=== PATIENT | female | born 1975 | race Caucasian/White ===

== ENCOUNTER 2018-02-14 09:30 | Emergency (ER) | payer OTHER ==
[2018-02-14] MEDS: NS 1,000 ML IV (10:56)
[2018-02-14 11:04] LABS: HEMATOCRIT 43.3 % (36.0-47.0); HEMOGLOBIN 14.6 g/dl (12.0-15.5); MEAN CORPUSCULAR HEMOGLOBIN 29.3 pg (27.0-33.0); MEAN CORPUSCULAR HGB CONC 33.7 g/dl (32.0-36.5); MEAN CORPUSCULAR VOLUME 86.8 fl (80.0-96.0); PLATELET COUNT, AUTOMATED 338 10^3/uL (150-450); RED BLOOD COUNT 4.99 10^6/uL (4.00-5.40); RED CELL DISTRIBUTION WIDTH 12.6 % (11.5-14.5); WHITE BLOOD COUNT 11.7 10^3/uL (4.0-10.0)
[2018-02-14 11:05] LABS: ADD MANUAL DIFFER YES; DIFF SLIDE NUMBER 179; POSITIVE DIFF POS FLAG; POSITIVE MORPH POS FLAG
[2018-02-14 11:14] LABS: INR 0.94; PROTHROMBIN TIME 12.7 SECONDS (12.1-14.4)
[2018-02-14 11:15] LABS: PARTIAL THROMBOPLASTIN TIME 22.4 SECONDS (25.4-37.6)
[2018-02-14 11:32] LABS: ANION GAP 4 MEQ/L (8-16); BLOOD UREA NITROGEN 5 MG/DL (7-18); CALCIUM LEVEL 8.6 MG/DL (8.5-10.1); CARBON DIOXIDE LEVEL 29 MEQ/L (21-32); CHLORIDE LEVEL 103 MEQ/L (98-107); CREATININE FOR GFR 0.66 MG/DL (0.55-1.30); GLOMERULAR FILTRATION RATE > 60.0 (>58); GLUCOSE, FASTING 268 MG/DL (70-100); POTASSIUM SERUM 3.9 MEQ/L (3.5-5.1); SODIUM LEVEL 136 MEQ/L (136-145)
[2018-02-14 11:33] LABS: EOSINOPHILS 1 % (0-5); LYMPHOCYTES 39 % (16-52); MONOCYTES 3 % (0-8); NEUTROPHILS 57 % (35-75); PLATELET ESTIMATE NORMAL (NORMAL)
[2018-02-14 12:35] LABS: KETONE, URINE AUTO RFX NEGATIVE (NEGATIVE); LEUKOCYTE ESTERASE UR AUTO RFX NEGATIVE (NEGATIVE); MUCUS, URINE RFX SMALL (NEGATIVE); NITRITE, URINE AUTO RFX NEGATIVE (NEGATIVE); RBC, URINE AUTO RFX 3 /HPF (0-3); SPECIFIC GRAVITY UR AUTO RFX 1.021 (1.002-1.035); SQUAM EPITHELIAL CELL UR AURFX 1 /HPF (0-6); WBC, URINE AUTO RFX 1 /HPF (0-3)
== END 2018-02-14 13:07 | disposition home or self-care (01) ==
LOC: M ED 09:30
DX: R10.2 Pelvic and perineal pain (principal); N95.0 Postmenopausal bleeding; I10 Essential (primary) hypertension; G62.9 Polyneuropathy, unspecified; M06.9 Rheumatoid arthritis, unspecified; K21.9 Gastro-esophageal reflux disease without esophagitis; Z79.899 Other long term (current) drug therapy; Z88.8 Allergy status to other drugs, medicaments and biological substances; F17.210 Nicotine dependence, cigarettes, uncomplicated
CPT/HCPCS: 76856

== ENCOUNTER → 2019-12-24 | Outpatient (REF) | payer OTHER ==
[~2019-12-24] MED LIST: BUPR150T5 PO; CELE40TA PO; CITA20TA6; HYDR-3715 PO; LISI-538 PO; LISI10TA4; OMEP40CA97
== END ==
LOC: M LAB REF 18:13
PROVIDERS: ATTEND Physician Assistant
DX: D23.5 Other benign neoplasm of skin of trunk (principal)

== ENCOUNTER 2021-01-07 17:04 | Emergency (ER) | payer OTHER ==
[~2021-01-07 17:04] MED LIST changes: -LISI-538 PO; +LISI10TA22; -LISI10TA4; +LISI20TA33 PO; +OMEP40CA4; -OMEP40CA97
--- OUTSIDE RECORDS SUMMARY | 2021-01-07 17:08 | CCD ---
Author Author [facility] Organization [facility] Address Unknown Phone Unavailable Care Team Providers Care Parks Worker Name Role Phone Patricia Nunes Unavailable PROBLEMS Type Condition ICD9-CM Code JKO30-EE Code Onset Dates Condition S tatus W/U Status Risk SNOMED Code Notes Problem Irregular menstrual bleeding N92.6 Active confirme d 54738082 Problem PTSD (post-traumatic stress disorder) F43.10 Ac tive confirmed 10408454 Problem Hypertensive heart disease without heart failure I 11.9 Active confirmed 85761583 Problem Type 2 diabetes mellitus wit hout complication, without long-term current use of insulin E11.9 Active confirmed 321139930 Problem GERD without esophagitis K21.9 Active confirmed 727200988 Problem Peripheral polyneuropathy G62.9 Active confirmed 969352511 Problem Nicotine dependence, cigarettes, uncomplicated F17 .210 Active confirmed 88123018 Problem Mixed hyperlipidemia E78.2 Active confirmed 353221575 Problem Rheumatoid arthritis, involv ing unspecified site, unspecified whether rheumatoid factor present M06.9 Active confirmed 6989 6004 Problem Anxiety with depression F41.8 Active confirmed 611604764 ALLERGIES Allergen (clinical drug ingredient) Drug/Non Drug Allergy do cumented on EMR Reaction Allergy Type Onset Date Status aspirin Aspirin([facility] Code:[address]-29) Hives Drug Allergy Active ENCOUNTERS from 1975 to 2020-10-20 Encounter Location Date Provider Diagnosis [address] [phone] [place] [address] Sep, Patricia Des IMMUNIZATIONS No Information SOCIAL HISTORY Tobacco Use: Social History Observation Description Date Details (start date - stop date) Current Smoker Sex Assigned At : Social History Observation Description Sex Assigned At Unknown Education: Question Answer Notes Level of Education: Not finished High School Audit Question Answer Notes Total Score: 0 Interpretation: Alcohol Education Language: Question Answer Notes Languages spoken: Danish Worship: Question Answer Notes Worship 08 Religious Domestic Violence: Question Answer Notes Status: Sexual Hx: Question Answer Notes Had sex in the last 12 months (vaginal, oral, or anal)? No Drug and Alcohol Question Answer Notes Total Score: 0 Interpretation: No problems reported Alcohol Screening: Question Answer Notes Did you have a drink containing alcohol in the past year? No Points 0 Interpretation Negative Tobacco Use: Question Answer Notes Are you a: current smoker Additional Findings: Tobacco User Heavy cigarette smoker (20 -39 cigs/day) Smoking Cessation Information Given 08/26/2020 Patient counseled on the dangers of tobacco use and urged to quit: 08/26/2020 How many cigarettes a day do you smoke? 21-30 Are you interested in quitting? Not ready to quit Counseled the patient on smoking effects, education provided 08/26/2020 REASON FOR REFERRAL No Information VITAL SIGNS No information MEDICATIONS Medication SIG (Take, Route, Frequency, Duration) Notes Start Da te End Date Status Gabapentin 300 MG 1 capsule Orally twice daily for 30 day(s) Sep, Active Omeprazole 40 MG 1 capsule 30 minutes before morning meal Orally Once a day for 90 days Feb, Active Paxil 20 MG 1 tablet in the morning Orally Once a day for 30 day(s) Feb, Not-Taking Clindamycin HCl 300 MG 1 cap Orally four times daily for 4 days Aug, Active CeleXA 20 MG 1 tablet Orally Once a day for 30 day(s) 2020 Active metFORMIN HCl 500 MG 1 tablet with a meal Orally twice daily for 30 day(s) Feb, Active Lisinopril 10 MG 1 tablet Orally Once a day for 90 days Feb, Active PROCEDURES No Information RESULTS No Results REASON FOR VISIT no show MEDICAL (GENERAL) HISTORY Type Description Date Medical History Spinal Stenosis in neck and low back Medical History Degenerative Disc Disease Medical History Degenerative muscle disease Medical History Type 2 diabetes Medical History GERD Medical History HTN Medical History Rheumatoid arthritis- 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 has 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 Medical History Depression Medical History Anxiety Medical History PTSD Surgical History C section 2010 Surgical History endometrial ablation 2011 Hospitalization History had an abscess on her stomach 08/2020 Goals Section No Information Health Concerns No Information MEDICAL EQUIPMENT No Information MENTAL STATUS No Information FUNCTIONAL STATUS No Information ASSESSMENTS No Information PLAN OF TREATMENT Medication Medication Name Sig Start Date Stop Date Gabapentin 300 MG 1 capsule Orally twice daily for 30 day(s) Sep, CeleXA 20 MG 1 tablet Orally Once a day for 30 day(s) Sep, Clindamycin HCl 300 MG 1 cap Orally four times daily for 4 days Aug, Next Appt Details Provider Name:Patricia Nunes, 2020-10-24 08 :45:00 AM, [address] [facility], , [place], [address], Insurance Providers Payer Name Payer Address Payer Phone Insured Name Patient Relati onship to Insured Coverage Start Date Coverage End Date [facility] [employer] [facility] [address] [facility] [id number] [place] self
--- OUTSIDE RECORDS SUMMARY | 2021-01-07 17:09 | CCD ---
Author Author [facility] Organization [facility] Address Unknown Phone Unavailable Care Team Providers Care Film Coater Name Role Phone NO, PCP Unavailable Unavailable [facility] [place] Unavailable Unavailable TURRIN, IFRAH Unavailable Unavailable TURRIN, IFRAH Unavailable Unavailable TURRIN, IFRAH Unavailable Unavailable TURRIN, IFRAH Unavailable Unavailable AURORACristiano PA Unavailable Unavailable AURORACristiano PA Unavailable Unavailable AURORACristiano PA Unavailable Unavailable AURORACristiano PA Unavailable Unavailable AURORACristiano PA Unavailable Unavailable AURORACristiano PA Unavailable Unavailable AURORA, L ALEC PA Unavailable Unavailable AURORA, Cristiano MCFARLANE PA Unavailable Unavailable AURORA, L ALEC PA Unavailable Unavailable AURORA, L ALEC PA Unavailable Unavailable AURORA, L ALEC PA Unavailable Unavailable AURORA, L ALEC PA Unavailable Unavailable AURORA, L ALEC PA Unavailable Unavailable AURORA, L ALEC PA Unavailable Unavailable AURORA, L ALEC PA Unavailable Unavailable AURORA, L ALEC PA Unavailable Unavailable AURORA, L ALEC PA Unavailable Unavailable AURORA, L ALEC PA Unavailable Unavailable AURORA, L ALEC PA Unavailable Unavailable AURORA, L ALEC PA Unavailable Unavailable AURORA, L ALEC PA Unavailable Unavailable AURORA, L ALEC PA Unavailable Unavailable AURORA, L ALEC PA Unavailable Unavailable AURORA, L ALEC PA Unavailable Unavailable AURORA, L ALEC PA Unavailable Unavailable AURORA, L ALEC PA Unavailable Unavailable AURORA, L ALEC PA Unavailable Unavailable AURORA, L ALEC PA Unavailable Unavailable AURORA, L ALEC PA Unavailable Unavailable AURORA, L ALEC PA Unavailable Unavailable AURORA, L ALEC PA Unavailable Unavailable AURORA, L ALEC PA Unavailable Unavailable AURORA, L ALEC PA Unavailable Unavailable AURORA, L ALEC PA Unavailable Unavailable AURORA, L ALEC PA Unavailable Unavailable AURORA, L ALEC PA Unavailable Unavailable AURORA, L ALEC PA Unavailable Unavailable AURORA, L ALEC PA Unavailable Unavailable AURORA, L ALEC PA Unavailable Unavailable AURORA, L ALEC PA Unavailable Unavailable AURORA, L ALEC PA Unavailable Unavailable AURORA, L ALEC PA Unavailable Unavailable AURORA, L ALEC PA Unavailable Unavailable AURORA, L ALEC PA Unavailable Unavailable CHANLIECCO, C BARB MD Unavailable Unavailable CHANLIECCO, C BARB MD Unavailable Unavailable CHANLIECCO, Nicolas CURRY MD Unavailable Unavailable CHANLIECCO, C BARB MD Unavailable Unavailable CHANLIECCO, C BARB MD Unavailable Unavailable CHANLIECCO, C BARB MD Unavailable Unavailable CHANLIECCO, C BARB MD Unavailable Unavailable CHANLIECCO, C BARB MD Unavailable Unavailable CHANLIECCO, C BARB MD Unavailable Unavailable CHANLIECCO, C BARB MD Unavailable Unavailable CHANLIECCO, C BARB MD Unavailable Unavailable Re-disclosure Warning The records that you are about to access may contain information from federally-assisted alcohol or drug abuse programs. If such information is present, then the following federally mandated warning applies: This information has been disclosed to you from records protected by federal confidentiality rules (42 CFR part 2). The federal rules prohibit you from making any further disclosure of this information unless further disclosure is expressly permitted by the written consent of the person to whom it pertains or as otherwise permitted by 42 CFR part 2. A general authorization for the release of medical or other information is NOT sufficient for this purpose. The Federal rules restrict any use of the information to criminally investigate or prosecute any alcohol or drug abuse patient.The records that you are about to access may contain highly sensitive health information, the redisclosure of which is protected by Article 27-F of the [facility] Public Health law. If you continue you may have access to information: Regarding HIV / AIDS; Provided by facilities licensed or operated by the [facility] Office of Mental Health; or Provided by the [facility] Office for People With Developmental Disabilities. If such information is present, then the following [facility] mandated warning applies: This information has been disclosed to you from confidential records which are protected by state law. State law prohibits you from making any further disclosure of this information without the specific written consent of the person to whom it pertains, or as otherwise permitted by law. Any unauthorized further disclosure in violation of state law may result in a fine or [place] health [facility] facility sentence or both. A general authorization for the release of medical or other information is NOT sufficient authorization for further disc losure. Allergies and Adverse Reactions Type Description Substance Reaction Status Data Source(s ) No Known Environmental Allergies No Known Environmental Al lergies [facility] No Known Food Allergies No Known Food Allergies [facility] Drug allergy IBUPROFEN IBU[facility]OFEN [facility] Drug allergy ASPIRIN ASPIRIN HIVES [facility] Family History Family Member Name Family Member Gender Family Member Status Date o f Status Description Data Source(s) Unknown Male Problem MEDENT ([facility]) Unknown Unknown Problem [facility] ([facility]) Unknown Unknown Problem [facility] ([facility]) Unknown Unknown Problem [facility] ([facility]) Encounters Encounter Providers Location Date Indications Data Source(s ) [place] [address] [facility] [address] 09/22/2020 12:00:00 AM EDT [facility]CW[facility] Unknown [address] [facility] [address] 09/12/2020 12:00:00 AM EDT eCW1 ([facility]) [place] [address] [facility] [address] 08/29/2020 12:00:00 AM EDT eCW1 ([facility]) Outpatient [address] [facility] [place] [address] 08/26/2020 12:00:00 AM EDT [facility] ([facility]) [place] [address] [facility] [address] 08/22/2020 12:00:00 AM EDT [facility]CW1 [facility]) Outpatient Attender: [facility] 08/14/2020 12:5 0:00 PM EDT [facility] Emergency Attender: BARB FERRELL MDConsultant: PCP NO 08/14/2020 12:26:00 PM EDT - 08/14/2020 04:31:00 PM EDT [facility] Patient discharged. [place] [address] [facility] [address] 08/09/2020 12:00:00 AM EDT eCW1 [facility]) Outpatient Attender: [facility] 06/2020 03:20:00 PM EDT MEDENT [facility] Outpatient Attender: ALEC SIMON PAConsultant: PCP NO 08/05/2020 02:53:00 PM EDT - 08/05/2020 02:53:00 PM EDT [facility] [place] [address] [facility] [address] 08/05/2020 12:00:00 AM EDT eCW1 ([facility]) Emergency Attender: IFRAH HERNANDEZConsultant: PCP NO 07/13/2020 12:33:00 PM EDT - 07/13/2020 02:47:00 PM EDT [facility] Patient discharged. [place] [address] [facility] [address] 07/05/2020 12:00:00 AM EDT [facility]CW[facility] [place] [address] [facility] [address] 03/10/2020 12:00:00 AM EST eCW1 ([facility]) [place] [address] [facility] [address] 02/18/2020 12:00:00 AM EST eCW1 ([facility]) [place] [address] [facility] [address] 12/29/2019 12:00:00 AM EDT eCW1 ([facility]) [place] [address] [facility] [address] 12/24/2019 12:00:00 AM EDT eCW1 ([facility]) Medications Medication Brand Name Start Date Product Form Dose Route Admi nistrative Instructions Pharmacy Instructions Status Indications Reaction Description Data Source(s) Citalopram 20 MG Oral Tablet [Celexa] CeleXA 20 MG CeleXA 20 MG 09/13/2020 12:00:00 AM EDT 1.0 {tablet} active Ce Yoko 20 MG eCW1 ([facility]) Citalopram 20 MG Oral Tablet [Celexa] CeleXA 20 MG CeleXA 20 MG 09/13/2020 12:00:00 AM EDT 1.0 {tablet} active Ce Yoko 20 MG eCW1 ([facility]) Citalopram 20 MG Oral Tablet [Celexa] CeleXA 20 MG CeleXA 20 MG 09/13/2020 12:00:00 AM EDT 1.0 {tablet} active Ce Yoko 20 MG eCW1 ([facility]) gabapentin 300 MG Oral Capsule Gabapentin 300 MG Gabapentin 300 MG 09/13/2020 12:00:00 AM EDT 1.0 {capsule} active G abapentin 300 MG eCW1 ([facility]) gabapentin 300 MG Oral Capsule Gabapentin 300 MG Gabapentin 300 MG 09/13/2020 12:00:00 AM EDT 1.0 {capsule} active G abapentin 300 MG eCW1 ([facility]) gabapentin 300 MG Oral Capsule Gabapentin 300 MG Gabapentin 300 MG 09/13/2020 12:00:00 AM EDT 1.0 {capsule} active G abapentin 300 MG eCW1 ([facility]) Clindamycin 300 MG Oral Capsule Clindamycin HCl 300 MG Clind amycin HCl 300 MG 08/26/2020 12:00:00 AM EDT active Clindamycin HCl 300 MG eCW1 ([facility]) Clindamycin 300 MG Oral Capsule Clindamycin HCl 300 MG Clind amycin HCl 300 MG 08/26/2020 12:00:00 AM EDT active Clindamycin HCl 300 MG eCW1 ([facility]) Clindamycin 300 MG Oral Capsule Clindamycin HCl 300 MG Clind amycin HCl 300 MG 08/26/2020 12:00:00 AM EDT active Clindamycin HCl 300 MG eCW1 ([facility]) Clindamycin 300 MG Oral Capsule Clindamycin HCl 300 MG Clind amycin HCl 300 MG 08/26/2020 12:00:00 AM EDT active Clindamycin HCl 300 MG eCW1 ([facility]) Paroxetine 20 MG Oral Tablet [Paxil] Paxil 20 MG Paxil 20 MG 02/18/2020 12:00:00 AM EST 1.0 {tablet_in_the_morning} active Paxil 20 MG eCW1 ([facility]) Lisinopril 10 MG Oral Tablet Lisinopril 10 MG 02/18/2020 12:00:00 A M EST 1.0 {tablet} active Lisinopril 10 MG eCW1 ( [facility]) Paroxetine 20 MG Oral Tablet [Paxil] Paxil 20 MG Paxil 20 MG 02/18/2020 12:00:00 AM EST 1.0 {tablet_in_the_morning} active Paxil 20 MG eCW1 ([facility]) Metformin hydrochloride 500 MG Oral Tablet metFORMIN H Cl 500 MG metFORMIN HCl 500 MG 02/18/2020 12:00:00 AM EST 1.0 {tablet_with_a_meal} active metFORMIN HCl 500 MG eCW1 ([facility]) Lisinopril 10 MG Oral Tablet Lisinopril 10 MG 02/18/2020 12:00:00 A M EST 1.0 {tablet} active Lisinopril 10 MG eCW1 ( [facility]) Lisinopril 10 MG Oral Tablet Lisinopril 10 MG 02/18/2020 12:00:00 A M EST 1.0 {tablet} active Lisinopril 10 MG eCW1 ( [facility]) Paroxetine 20 MG Oral Tablet [Paxil] Paxil 20 MG Paxil 20 MG 02/18/2020 12:00:00 AM EST 1.0 {tablet_in_the_morning} suspended Paxil 20 MG eCW1 ([facility]) Omeprazole 40 MG Delayed Release Oral Capsule Omeprazole 40 MG 02/18/2020 12:00:00 AM EST active Omeprazo le 40 MG eCW1 ([facility]) Lisinopril 10 MG Oral Tablet Lisinopril 10 MG 02/18/2020 12:00:00 A M EST 1.0 {tablet} active Lisinopril 10 MG eCW1 ( [facility]) Omeprazole 40 MG Delayed Release Oral Capsule Omeprazole 40 MG 02/18/2020 12:00:00 AM EST active Omeprazo le 40 MG eCW1 ([facility]) Lisinopril 10 MG Oral Tablet Lisinopril 10 MG 02/18/2020 12:00:00 A M EST 1.0 {tablet} active Lisinopril 10 MG eCW1 ( [facility]) Lisinopril 10 MG Oral Tablet Lisinopril 10 MG 02/18/2020 12:00:00 A M EST 1.0 {tablet} active Lisinopril 10 MG eCW1 ( [facility]) Metformin hydrochloride 500 MG Oral Tablet metFORMIN H Cl 500 MG metFORMIN HCl 500 MG 02/18/2020 12:00:00 AM EST 1.0 {tablet_with_a_meal} active metFORMIN HCl 500 MG eCW1 ([facility]) Metformin hydrochloride 500 MG Oral Tablet metFORMIN H Cl 500 MG metFORMIN HCl 500 MG 02/18/2020 12:00:00 AM EST 1.0 {tablet_with_a_meal} active metFORMIN HCl 500 MG eCW1 ([facility]) Omeprazole 40 MG Delayed Release Oral Capsule Omeprazole 40 MG 02/18/2020 12:00:00 AM EST active Omeprazo le 40 MG eCW1 ([facility]) Paroxetine 20 MG Oral Tablet [Paxil] Paxil 20 MG Paxil 20 MG 02/18/2020 12:00:00 AM EST 1.0 {tablet_in_the_morning} active Paxil 20 MG eCW1 ([facility]) Metformin hydrochloride 500 MG Oral Tablet Metformin H Cl 500 MG Metformin HCl 500 MG 02/18/2020 12:00:00 AM EST 1.0 {tablet_with_a_meal} active Metformin HCl 500 MG eCW1 ([facility]) Paroxetine 20 MG Oral Tablet [Paxil] Paxil 20 MG Paxil 20 MG 02/18/2020 12:00:00 AM EST 1.0 {tablet_in_the_morning} active Paxil 20 MG eCW1 ([facility]) Paroxetine 20 MG Oral Tablet [Paxil] Paxil 20 MG Paxil 20 MG 02/18/2020 12:00:00 AM EST 1.0 {tablet_in_the_morning} suspended Paxil 20 MG eCW1 ([facility]) Metformin hydrochloride 500 MG Oral Tablet metFORMIN H Cl 500 MG metFORMIN HCl 500 MG 02/18/2020 12:00:00 AM EST 1.0 {tablet_with_a_meal} active metFORMIN HCl 500 MG eCW1 ([facility]) Omeprazole 40 MG Delayed Release Oral Capsule Omeprazole 40 MG 02/18/2020 12:00:00 AM EST active Omeprazo le 40 MG eCW1 ([facility]) Paroxetine 20 MG Oral Tablet [Paxil] Paxil 20 MG Paxil 20 MG 02/18/2020 12:00:00 AM EST 1.0 {tablet_in_the_morning} suspended Paxil 20 MG eCW1 ([facility]) Lisinopril 10 MG Oral Tablet Lisinopril 10 MG 02/18/2020 12:00:00 A M EST 1.0 {tablet} active Lisinopril 10 MG eCW1 ( [facility]) Paroxetine 20 MG Oral Tablet [Paxil] Paxil 20 MG Paxil 20 MG 02/18/2020 12:00:00 AM EST 1.0 {tablet_in_the_morning} suspended Paxil 20 MG eCW1 ([facility]) Lisinopril 10 MG Oral Tablet Lisinopril 10 MG 02/18/2020 12:00:00 A M EST 1.0 {tablet} active Lisinopril 10 MG eCW1 ( [facility]) Omeprazole 40 MG Delayed Release Oral Capsule Omeprazole 40 MG 02/18/2020 12:00:00 AM EST active Omeprazo le 40 MG eCW1 ([facility]) Lisinopril 10 MG Oral Tablet Lisinopril 10 MG 02/18/2020 12:00:00 A M EST 1.0 {tablet} active Lisinopril 10 MG eCW1 ( [facility]) Omeprazole 40 MG Delayed Release Oral Capsule Omeprazole 40 MG 02/18/2020 12:00:00 AM EST active Omeprazo le 40 MG eCW1 ([facility]) Paroxetine 20 MG Oral Tablet [Paxil] Paxil 20 MG Paxil 20 MG 02/18/2020 12:00:00 AM EST 1.0 {tablet_in_the_morning} active Paxil 20 MG eCW1 ([facility]) Metformin hydrochloride 500 MG Oral Tablet metFORMIN H Cl 500 MG metFORMIN HCl 500 MG 02/18/2020 12:00:00 AM EST 1.0 {tablet_with_a_meal} active metFORMIN HCl 500 MG eCW1 ([facility]) Omeprazole 40 MG Delayed Release Oral Capsule Omeprazole 40 MG 02/18/2020 12:00:00 AM EST active Omeprazo le 40 MG eCW1 ([facility]) Omeprazole 40 MG Delayed Release Oral Capsule Omeprazole 40 MG 02/18/2020 12:00:00 AM EST active Omeprazo le 40 MG eCW1 ([facility]) Metformin hydrochloride 500 MG Oral Tablet Metformin H Cl 500 MG Metformin HCl 500 MG 02/18/2020 12:00:00 AM EST 1.0 {tablet_with_a_meal} active Metformin HCl 500 MG eCW1 ([facility]) Metformin hydrochloride 500 MG Oral Tablet metFORMIN H Cl 500 MG metFORMIN HCl 500 MG 02/18/2020 12:00:00 AM EST 1.0 {tablet_with_a_meal} active metFORMIN HCl 500 MG eCW1 ([facility]) Omeprazole 40 MG Delayed Release Oral Capsule Omeprazole 40 MG 02/18/2020 12:00:00 AM EST active Omeprazo le 40 MG eCW1 ([facility]) Metformin hydrochloride 500 MG Oral Tablet Metformin H Cl 500 MG Metformin HCl 500 MG 02/18/2020 12:00:00 AM EST 1.0 {tablet_with_a_meal} active Metformin HCl 500 MG eCW1 ([facility]) Omeprazole 40 MG Delayed Release Oral Capsule Omeprazole 40 MG 02/18/2020 12:00:00 AM EST active Omeprazo le 40 MG eCW1 ([facility]) Lisinopril 10 MG Oral Tablet Lisinopril 10 MG 02/18/2020 12:00:00 A M EST 1.0 {tablet} active Lisinopril 10 MG eCW1 ( [facility]) Paroxetine 20 MG Oral Tablet [Paxil] Paxil 20 MG Paxil 20 MG 02/18/2020 12:00:00 AM EST 1.0 {tablet_in_the_morning} active Paxil 20 MG eCW1 ([facility]) Metformin hydrochloride 500 MG Oral Tablet Metformin H Cl 500 MG Metformin HCl 500 MG 02/18/2020 12:00:00 AM EST 1.0 {tablet_with_a_meal} active Metformin HCl 500 MG eCW1 ([facility]) Insurance Providers Payer name Policy type / Coverage type Policy ID Covered green party ID Covered green party's relationship to chin Policy Chin Plan Information Managed Care - Community Plan [facility] P [id number] S [id number] MEDICAID M [id number] Self [id number] [facility] I [id number] Self [id number] [facility] I [id number] Self [id number] Medicaid S [id number] S [id number] Managed Care - Community Plan [facility] S [id number] S [id number] Managed Care - [facility] Community Plan P [id number] S [id number] Managed Care - Community Plan [facility] P [id number] S [id number] Medicaid S [id number] S [id number] [facility] COMMUNITY PLAN [facility] [id number] [facility] XIX -O [id number] 18 [id number] [place] [facility] Medicaid [id number] Self [id number] [place]ID [place] [facility] [place] [id number] 18 [facility] [id number] [facility] [id number] Self [facility] [id number] Self MEDICAID - CLINIC [id number] [facility](MCAID) O [id number] S [id number] [employer] COMMUNITY PLAN MCDHMO [id number] SP [id number] MEDICAID [id number] SP [id number] MEDICAID [id number] SP [id number] [facility]-Community Plan-[facility] Commercial [id number] Self Self Pay S [id number] S [id number] Managed Care BCBS O [id number] S [id number] Self Pay O none S none [employer]UE [employer] PLAN [id number] SP [id number] EXCELL[employer] BCBS P [id number] S [id number] MEDICAID P [id number] S [id number] [facility] COMMUNITY PLAN [id number] SP [id number] O BLUE [id number] SP [id number] [facility] COMMUNITY PLAN XIX [id number] 18 [id number] [facility] COMMUNITY PLAN XIX [id number] 18 [id number] [facility] EMPIR PLAN [id number] 18 [id number] [facility] [id number] S [id number] [facility] Health Individual Policy 0 [id number] S elf [id number] MEDICAID -O/P EMERGENCY ROOM [id number] [facility] Health Individual Policy 0 [id number] S elf [id number] [facility] Health Individual Policy 0 [id number] S elf 0 [facility](MCAID) O [id number] S [id number] Problems, Conditions, and Diagnoses Code Display Name Description Problem Type Effective Dates Data Source(s) Z872 Personal history of diseases of the skin and subcutaneous tissue Personal history of diseases of the skin and subcutaneous tissue Diagnosis 08/14/2020 12:26:00 PM EDT [facility] Z7984 senior living (current) use of oral hypoglyc emic drugs senior living (current) use of oral hypoglycemic drugs Diagnosis 08/14/2020 12:26:00 PM EDT [facility] Z5320 Procedure and treatment not carried out because of patient's decision for unspecified reasons Procedure and treatment not carried out because of patient's decision for unspecified reasons Diagnosis [facility] Type 2 diabetes mellitus with diabetic n europathy, unspecified Type 2 diabetes mellitus with diabetic neuropathy, unspecified Diagnosis 08/14/2020 12:26:00 PM EDT [facility] I252 Old myocardial infarction Old myocardial infarction Di agnosis 08/14/2020 12:26:00 PM EDT [facility] E1165 Type 2 diabetes mellitus with hyperglyce kimmie Type 2 diabetes mellitus with hyperglycemia Diagnosis 08/14/2020 12:26:00 PM EDT [facility] M35816 Cellulitis of abdominal wall Cellulitis of abdominal w all Diagnosis 08/14/2020 12:26:00 PM EDT [facility] P47056 Nicotine dependence, cigarettes, uncompl icated Nicotine dependence, cigarettes, uncomplicated Diagnosis 07/13/2020 12:33:00 PM EDT [facility] E119 Type 2 diabetes mellitus without complic ations Type 2 diabetes mellitus without complications Diagnosis 07/13/2020 12:33:[address] 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 Peripheral polyneuro oscar Problem 09/13/2020 12:00:00 AM EDT eCW1 ([facility]) N92.6 [id number] Irregular menstrual bleeding Problem 021 12:00:00 AM EST eCW1 ([facility]) F41.8 [id number] Anxiety with depression Problem 02/18/2020 1 2:00:00 AM EST eCW1 ([facility]) M06.9 [id number] Rheumatoid arthritis , involving unspecified site, unspecified whether rheumatoid factor present Problem 02/18/2020 12:00:00 AM EST eCW1 ([facility]) E78.2 Mixed hyperlipidemia Mixed hyperlipidemia Problem 02/18/2020 12:00:00 AM EST eCW1 ([facility]) F17.210 88658302 Nicotine dependence, cigarettes, uncompli cated Problem 02/18/2020 12:00:00 AM EST eCW1 ([facility]) K21.9 [id number] GERD without esophagitis Problem 02/18/2020 12:00:00 AM EST eCW1 ([facility]) E11.9 [id number] Type 2 diabetes dee dee itus without complication, without long-term current use of insulin Problem 02/18/2020 12:00:00 AM EST eCW1 ([facility]) I11.9 03546266 Hypertensive heart disease without heart failure Problem 02/18/2020 12:00:00 AM EST eCW1 ([facility]) F43.10 65212451 PTSD (post-traumatic stress disorder) Pro blem 02/18/2020 12:00:00 AM EST eCW1 ([facility]) Surgeries/Procedures No Information Results ID Date Data Source [id number] 08/15/2020 12:02:00 PM EDT [facility] [address] [place] [address] PHONE: [phone] FAX: [phone] Name .................. : MARIELSYLVIE WEAVER Alivia Acct Number.................. : [id number] ROOM. ................. : VT-04 MR Number ................... : [id number] Stay type ............. : E/R Discharge Date......... ... : 08/14/20 Admit Date ......... : 08/14/20 Admit Phys .................... : MARIAELENA Date of ....... : 1975 Family Phys ................... : NO PCP Phone .................. : [phone] Age ................................ : 45 Film# .................. .:[id number] Sex ................................. : F Unsigned transcriptions are preliminary reports and do not represent a medical or legal document CT ABD & PELVIS W/ IV ONLY [id number] COMPLETE:08/14/20 16:36 NIESHA [id number] Reason(s): evaluate abdominal wall abscess RLQ area CT OF THE ABDOMEN AND PELVIS WITH CONTRAST: CLINICAL HISTORY: 45-year-old female, concern for abdominal wall abscess in the right lower quadrant area. COMPARISON: CT abdomen and pelvis from 06/09/18. FINDINGS: The lung bases are unremarkable. The liver and spleen are within normal limits. The gallbladder is either decompressed or surgically absent. The pancreas is within normal limits. The adrenal glands are unremarkable. The kidneys are unremarkable. There are punctate nonobstructing calculi bilaterally, the largest measures up to 2 mm on the left. No evidence of bowel obstruction or free air. No acute inflammation is seen. Tubal ligation clips are seen in place. There is a 3.3 cm cyst within the right ovary. No abdominal aortic aneurysm. Page 1 of [address] [place] [address] PHONE: [phone] FAX: [phone] Name .................. : MARIEL Bunch Acct Number.................. : [id number] ROOM. ................. : VT-04 MR Number ................... : [id number] Stay type ............. : E/R Discharge Date......... ... : 08/14/20 Admit Date ......... : 08/14/20 Admit Phys .................... : MARIAELENA Date of ....... : 1975 Family Phys ................... : NO PCP Phone .................. : [phone] Age ................................ : 45 Film# .................. .:[id number] Sex ................................. : F Unsigned transcriptions are preliminary reports and do not represent a medical or legal document CT ABD & PELVIS W/ IV ONLY [id number] COMPLETE:08/14/20 16:36 NIESHA [id number] Reason(s): evaluate abdominal wall abscess RLQ area No acute osseous abnormality. Multilevel degenerative changes are seen, most pronounced at L4-5, where there is severe disc space narrowing, disc osteophyte, ridge formation and facet arthropathy. The urinary bladder is unremarkable. In the right lower quadrant abdominal wall, there is an area of severe skin thickening with a skin and soft tissue defect, likely the site of a wound. The overall length of this area measures approximately 10.5 cm. Scattered inflammatory changes are seen within the right lower abdominal soft tissues. No definite fluid collections or abscesses are seen. No extension is seen into the peritoneum. IMPRESSION: Soft tissue wound and cellulitis in the right lower abdominal wall without fluid collection or abscess. Nonobstructing bilateral renal calculi. While performing the above CT examination, radiation dose reduction was accomplished utilizing automated exposure control, adjusting of the mA and kV based on the patient's body size and/or the use of imperative reconstructive techniques. CT dose: 864.5 mGycm Contrast agent in mL: 75 Isovue 370 Method of ad ministration: Intravenous Electronically Reviewed and Signed By Kevin Coles MD , 08/15/20 12:02, EUNICE Page [address] [place] [address] [address] [place] [address] PHONE: [phone] FAX: [phone] Name .................. : MARIEL Bunch Acct Number.................. : [id number] ROOM. ................. : VT- MR Number ................... : [id number] Stay type ............. : E/R Discharge Date......... ... : 08/14/20 Admit Date ......... : 08/14/20 Admit Phys .................... : AMACO Date of ....... : 1975 Family Phys ................... : NO PCP Phone .................. : [phone] Age ................................ : 45 Film# .................. .:[id number] Sex ................................. : F Unsigned transcriptions are preliminary reports and do not represent a medical or legal document CT ABD & PELVIS W/ IV ONLY [id number] COMPLETE:08/14/20 16:36 NIESHA [id number] Reason(s): evaluate abdominal wall abscess RLQ area Transcribe Initials: ANIRUDH Transcribe Date: 08/14/20 21:41, Dictation Date: Copy for: EMERGENCY DEPT via mode Copy for: 710 MED REC DISCHARGED Page 3 of 3 Name Value Range Interpretation Code Description Data Soheila rce(s) Supporting Document(s) ID Date Data Source [id number] 08/14/2020 12:26:00 PM EDT [facility] 1 OrderSheet [facility] Emergency Department [address] [place] [address] Phone #: [phone]- [phone] 08/14/2020 12:27 Patient: OWEN FLOYD Sex: F : 1975 Age: 45yWEIGHT:86.1 kg (S) HEIGHT:63 inches (S) BMI:33.6ALLERGIES: AspirinCHIEF COMPLAINT: boil, tender areaDIAGNOSIS: Cellulitis of skin, HyperglycemiaLAB ORDERSOrder Description Priority Entered Acknowledged InitialedBlood Culture STAT 12:43 08/14/2020 13:04 dale Bender0m X2 (Sched Barb Ferrell R.NGianni12:43 08/14/2020) ;Blood Culture STAT 12:43 08/14/2020 13:04 dale Bender0m X2 (Sched Barb Ferrell R.NGianni12:53 08/14/2020) ;CBC w Diff STAT 12:43 08/14/2020 13:04 Mariaelena Bender Victoria Rachel R.N. ;CMP STAT 12:43 08/14/2020 13:04 Mariaelena Bender Victoria Rachel R.N. ;Lactic Acid STAT 12:43 08/14/2020 13:04 Mariaelena Bender Victoria Rachel R.N. ;PT/INR STAT 12:43 08/14/2020 13:04 Mariaelena Bender Victoria Rachel R.N. ;PT/PTT STAT 12:43 08/14/2020 13:04 Mariaelena Bender Victoria Rachel R.N. ;Culture MRSA STAT 12:58 08/14/2020 13:04 Mariaelena Bender Victoria Rachel R.N. ;Culture, Wound STAT 12:58 08/14/2020 13:04 Napoleon(tara) Barb Ferrell R.N. ;DIAGNOSTIC STUDY ORDERSOrder Description Priority Entered Acknowledged InitialedCT Abd PEL W/ IV STAT 13:08 08/14/2020 14:39 Napoleon, 2 OrderSheet [facility] Emergency Department [address] [place] [address] Phone #: ext- [phone] 08/02 12:27 Patient: OWEN FLOYD Sex: F : 1975 Age: 45yContrast Only Barb Ferrell R.N.(Oxygen?(No)) ;(IV?(Yes)) Reason for Study: evaluate abdominal wall abscess RLQ areaMEDICATION/IV/DRIP/FLUID ORDERSOrder Description Priority Entered Acknowledged InitialedOfirmev IV 1000 mg 12:58 08/14/2020 13:08 Napoleon,(NOW x1, Infuse Barb Ferrell R.N.over 15 minutes) ;NS IV : Bolus 1000 12:58 08/14/2020 13:09 Napoleon,mL, then 200 mL/hr Barb Ferrell RGianniNGianni ;Clindamycin IVPB 12:59 08/14/2020 13:09 Napoleon,900 mg (NOW) Barb Ferrell RGianniN. ;GENERAL ORDERSOrder Description Priority Entered Acknowledged InitialedAccucheck 12:43 08/14/2020 13:04 Mariaelena Bender Victoria Rachel RGianniN. ;Blood Pressure 12:43 08/14/2020 13:04 Napoleon,Monitor Barb Ferrell R.N. ;NPO 12:43 08/14/2020 13:04 Mariaelena Bender Victoria Rachel R.N. ;Saline Lock 12:43 08/14/2020 13:04 Mariaelena Bender Victoria Rachel R.N. ;Vitals 12:43 08/14/2020 13:04 Mariaelena Bender Victoria Rachel R.N. ;[Electronically signed by Ene Bender R.N. (16:31 08/14/2020)][Electronically signed by Barb Ferrell (02:28 )][Electronically locked by Ene Bender R.N. (16:08/14/2020)] Name Value Range Interpretation Code Description Data Soheila rce(s) Supporting Document(s) ID Date Data Source [id number] 08/14/2020 12:26:00 PM EDT [facility] 1 Medication Reconciliation Report [facility] Emergency Department [address] [place] [address] Phone #: [phone]- [phone] 08/14/2020 12:27 Patient: OWEN FLOYD Sex: F : 1975 Age: 45yWeight: 86.1 kgHeight/Length: 63 in.BMI: 33.6ALLERGIES: AspirinThe patient's Home Medications are listed below:CONTINUE TAKING THE FOLLOWING MEDICATIONS: Lisinopril Oral (40 mg), daily metFORMIN HCl Oral 500 mg, 2x a day Omeprazole Oral 40 mg, dailyThe source(s) of the original Home Medication information:Not obtained.The following Medications were given to the patient in the Emergency Department:ofirmev IVPB bolus 0, then 1000 mg, administered: 13:08 08/14/2020lindamycin [IVPB] IVPB bolus 0, then 900 mg 100 mL/hr, administered: :08/14/2020NS [IV] IV Fluids bolus 1000 mL over 1 hour(s), administered: 13:08/14/2020The following Medications were prescribed to the patient:clindamycin HCl 300 mg capsule Take 1 capsule four times a day for 10 days -- Dispense 40 capsule.Refills: 0. Substitution permitted.Pharmacy - [id number] - [id number], [place] [id number]. . -- BrizofiaBarb Name Value Range Interpretation Code Description Data Soheila rce(s) Supporting Document(s) ID Date Data Source [id number] 08/14/2020 12:26:00 PM EDT [facility] 1 Medication Administration Record [facility] Emergency Department [address] [place] [address] Phone #: ext- [phone] 08/14/2020 12:27 Patient: OWEN FLOYD Sex: F : 1975 Age: 45yWeight: 86.1 kgHeight/Length: 63 inBMI: 33.6ALLERGIES: Aspirin Date/Time Medication Administered Medication OrderedStart ofirmev * Ofirmev IV 1000 mg (NOW x1,13:08 08/14/2020 Dose: 1000 mg * IVPB Infuse over 15 minutes)Ene Bender R.N.----Stop14:19 08/14/2020Ene Bender R.N.Start NS [IV] NS IV : Bolus 1000 mL, then 18491:08/14/2020 Dose: IV Fluids mL/hrEne Bender RGianniNGianni Bolus: 1000 mL over 1 hour(s)---- Dispensed: 1000 mL bagStop Site: #1 left AC16:30 08/14/2020Ene Bender R.N.Start CLINDAMYCIN [IVPB] Clindamycin IVPB 900 mg (NOW)13:09 08/14/2020 Dose: 900 mg IVPBEne Bender RJose Rate: 100 mL/hr over 30 minute(s)---- Dispensed: 50 mL bagStop Site: #1 left AC14:19 08/14/2020Ene Bender R.N. Name Value Range Interpretation Code Description Data Soheila rce(s) Supporting Document(s) ID Date Data Source [id number] 08/14/2020 12:26:00 PM EDT [facility] 1 General Instructions [facility] Emergency Department [address] [place] [address] Phone #: ext- [phone] 08/14/2020 12:27 Patient: OWEN FLOYD Sex: F : 1975 Age: 45yCellulitis of the abdominal wall.Moderate hyperglycemia.INSTRUCTIONS(you were advised admission for IV antibiotics as you have a draining abscess and cellulitis of theabdomen and you are diabetic. you refused admission and signed but AMA. take the antibiotics asprescribed. follow up with your doctor in am or return to the ER if condition worsens or does notimprove).Your Current Medications: Your current home medications have been reviewed.CONTINUE TAKING THE FOLLOWING MEDICATIONS:Lisinopril Oral : Tablet 40 mg, daily.metFORMIN HCl Oral : 500 mg 2x a day.Omeprazole Oral : 40 mg daily.Prescription Medications:clindamycin HCl 300 mg capsule Take 1 capsule four times a day for 10 days -- Dispense 40 capsule.Refills: 0. Substitution permitted.Pharmacy - [id number] - [id number] [facility] ; [place], [place] [id number]. .Follow-up:Follow up with your healthcare provider tomorrow. Reason for referral: evaluation. Summary of careprovided to patient via paper.AMA warnings: Time of assessment: 15:53 08/14/2020. Oriented to person, place, and time. Givesappropriate answers and rational explanation of refusal of care. Speaks coherently. No signs ofpsychosis, auditory hallucinations, delusional thinking, suicidal ideations or slurred speech. No tangentialthinking, visual hallucinations or homicidal ideations. Abstract thinking intact.Clinical Impression: the patient has the capacity to make decisions regarding the medical care offered.The suspected diagnosis, based upon the initiated medical screening exam, is abdominal wall cellulitis;hyperglycemia and has been discussed with the patient. Acknowledges understanding of the reasons forrecommendations regarding medical treatment, admission to facility and further observation. Therecommended medical care being refused is admission for IV andtibiotics and has been discussed withthe patient and family. The risks of refusing recommended care that were disclosed and acknowledgedare , permanent mental impairment, loss of sexual function and loss of current lifestyle. Dischargeinstructions were provided to the patient. 2 General Instructions [facility] Emergency Department [address] [place] [address] Phone #: ext- [phone] 08/14/2020 12:27 Patient: OWEN FLOYD Sex: F : 1975 Age: 45y(Electronically signed by Barb Ferrell 08/15/2020 02:28) Name Value Range Interpretation Code Description Data Soheila rce(s) Supporting Document(s) ID Date Data Source [id number] 08/14/2020 12:26:00 PM EDT [facility] 1 Clinical Report - Nurses [facility] Emergency Department [address] [place] [address] Phone #: ext [phone] 08/14/2020 12:27 Patient: OWEN FLOYD Sex: F : 1975 Age: 45yTRIAGEArrived by private vehicle. Historian: patient. Accompanied by family.Acuity: LEVEL 3.Chief Complaint: abscess in RLQ.Alert. No acute distress.Reported as located on the abdomen. Onset. (5 days). ( PT says 5 days ago she developed a painfularea under a skin fold in her RLQ. 2 days ago, the wound began to drained a large amount of brown puss.She then applied Neosporin and peroxide on the wound and has been having the dressing changed 5times a day by her . 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 SEPSIS SCREEN NEGATIVE. No suspected or confirmedsigns of infection present.WALESKA COMA SCORE: 15- eyes open- spontaneous (4); best verbal response- oriented (5); bestmotor response- obeys commands (6). --12:36 08/14/20 Ene Bender R.N.12:28 08/14/20. BP: 137/79. MAP: 98. HR: 80. RR: 18. O2 saturation: 97%. Temp: 98.7 F. Pain level now:06/11. --12:36 08/14/20 Ene Bender R.N.Weight: 86.1 kg stated. Height/Length: 63 inches Per Patient. BMI: 33.6. --12:35 08/14/20 Ene Bender R.N.MedicationsLisinopril Oral (Tablet 40 mg), daily. --12:34 08/14/20 Ene Bender R.N. metFORMIN HCl Oral 500 mg, 2x a day. Omeprazole Oral 40 mg, daily. --12:34 08/14/20 Ene Bender R .N.AllergiesAspirin. --12:34 08/14/20 Ene Bender R.N.HistoryPAST MEDICAL HX: Last normal menstrual period- ablation. Denies current .SOCIAL HX: Heavy tobacco smoker- 1-2 packs per day. Drug use: marijuana. Recently used drugs justprior to arrival. No alcohol use. She was offered HIV testing but declined and hepatitis C testing but 2 Clinical Report - Nurses [facility] Emergency Department [address] [place] [address] Phone #: ext- [phone] 08/14/2020 12:27 Patient: OWEN FLOYD Sex: F : 1975 Age: 45y declined. She has not traveled outside the [place] Infectious disease exposure: The patient was exposed to Coronavirus. The patient was not exposed to C-diff, MRSA, VRE or CRE. SELF HARM ASSESSMENT: Self harm assessment was performed. The patient answered "no" to the question(s) "Have you recently felt down, depressed, or hopeless?", "Do you have thoughts of harming or killing yourself?", "Do you have a plan for harming or killing yourself?", "Have you recently had thoughts about harming or killing others?", "Do you have any dangerous items in your possession?", "Have you noticed less interest or pleasure in doing things?", "Are you here because you tried to hurt yourself?" and "Have you ever tried to hurt yourself before today?". ABUSE ASSESSMENT: No report of abuse. NUTRITIONAL RISK ASSESSMENT: The nutritional risk assessment revealed no deficiencies. FUNCTIONAL ASSESSMENT: Functional assessment: no impairments noted. LEARNING NEEDS ASSESSMENT: The learning needs assessment revealed no barriers. FALL RISK ASSESSMENT: Fall risk assessment completed. No risk factors identified. SKIN INTEGRITY ASSESSMENT: Skin integrity risk assessment completed. No skin integrity risk identified. --12:36 08/14/20 Ene Bender R.N. Interventions Identification and allergy band on patient. To treatment room. --12:36 08/14/20 Ene Bender R.N.PHYSICAL ASSESSMENTAmbulatory to room.GENERAL / NEURO / PSYCH: Alert. The patient does not appear to be in acute distress. Oriented X 4.HEENT: Pupils equal, round and reactive to light. Mucous membranes are pink.RESPIRATORY: Respirations not labored. Breath sounds within normal limits.CVS: Capillary refill less than 2 seconds. Pulses within normal limits.GI / : Abdomen nontender.SKIN: Skin lesion present- generalized bug bites. Oozing wound with erythema, tenderness andincreased warmth on the abdomen. --13:10 08/14/20 Ene Bender R.N.NURSING PROGRESS NOTESPatient gowned. Reassurance given. Two patient identifiers checked. Call light placed in reach.Patient ready for evaluation- PA notified. --12:37 08/14/20 Ene Bender R.N. 13:08/14/2020 ofirmev * IVPB 1000 mg --13:08/14/20 Ene Bender R.N. 13:08/14/2020 Site #1 started via IV in the left antecubital space with an 20g angiocath, with aseptic 3 Clinical Report - [facility] Emergency Department [address] [place] [address] Phone #: ext- [phone] 08/14/2020 12:27 Patient: OWEN FLOYD Sex: F : 1975 Age: 45y technique and good blood return; one attempt. Blood drawn: rainbow set, green tube(s) and cultures x1. Labeled in the presence of the patient and sent to the lab. Saline lock flushed with 10 mL saline. --13:08/14/20 Ene Bender R.N. 13:08/14/2020 Started 900 mg of Clindamycin IVPB in bag #1 50 mL; at 100 mL/hr over 30 minute(s) via site #1. via IV pump. Allergies verified and confirmed 5 rights. IV patency established. IV site checked: no pain, redness, or swelling. IV flushed thoroughly pre- and post- medication administration. Information reviewed with patient including reason for taking this medication. Verbalizes understanding. --13:08/14/20 Ene Bender R.N. 13:09 08/14/2020 Started bag #1 1000 mL IV Fluids NS; bolus of 1000 mL over 1 hour(s) via site #1 via IV pump. Allergies verified and confirmed 5 r ights. IV patency established. IV site checked: no pain, redness, or swelling. IV flushed thoroughly pre- and post-medication administration. Information reviewed with patient including reason for taking this medication. Verbalizes understanding. --13:09 08/14/20 Ene Bender R.N. Finger stick glucose: 318; performed by nurse; result shown to the ED physician. --13:16 08/14/20 nEe Bender R.N. 13:57 08/14/20. BP: 143/85. MAP: 104. HR: 71. RR: 18. O2 saturation: 100%. --13:57 08/14/20 [facility] Tech1 13:44 08/14/20. Patient waiting for lab results. --14:17 08/14/20 Ene Bender R.N. 14:19 08/14/2020 Ofirmev IVPB Discontinued: bag #1 completed upon discharge. Total amount infused: 50 mL. IV patency established. IV site checked: no pain, redness, or swelling. IV flushed thoroughly. --14:19 08/14/20 Ene Bender R.N. 14:19 08/14/2020 Clindamycin IVPB via IV site #1 Discontinued: bag #1 completed. Total amount infused: 50 mL. IV patency established. IV site checked: no pain, redness, or swelling. IV flushed thoroughly. --14:19 08/14/20 Ene Bender R.N. 15:23 08/14/20. BP: 125/79. MAP: 94. HR: 71. RR: 16. O2 saturation: 98%. --15:24 08/14/20 [facility] Tech1.DISPOSITION / DISCHARGE 16:30 08/14/2020 Site #1 removed upon discharge. Catheter intact. Manual pressure and bandage applied. --16:30 08/14/20 Ene Bender R.N. 16:30 08/14/2020 IV Fluids NS via IV site #1 Discontinued: bag #1 completed upon discharge. Total amount infused: 1000 mL. IV patency established. IV site checked: no pain, redness, or swelling. IV flushed thoroughly. --16:30 08/14/20 Ene Bender R.N. Condition at departure: stable. The patient left the Emergency Department against medical advice; patient 4 Clinical Report - Nurses [facility] Emergency Department [address] [place] [address] Phone #: ext- [phone] 08/14/2020 12:27 Patient: OWEN FLOYD Sex: F : 1975 Age: 45y was accompanied by spouse. The patient appears to be alert, oriented x4, coherent and in no acute distress. The patient notified staff prior to leaving the department and stated is leaving (did not want to be admitted). Notified the ED physician of patient departure. Prior to leaving, she was advised to stay for completion of treatment and return if needed. She was informed of the risks of leaving and verbalized understanding of these risks. Patient signed form prior to leaving. She left the Emergency Department ambulatory and via private vehicle. --16:31 08/14/20 Ene Bender R.N. 16:29 08/14/20. BP: 129/88. MAP: 101. HR: 88. RR: 19. O2 saturation: 100%. Temp: 98.2 F. Pain level now: 09/10. --16:31 08/14/20 Ene Bender R.N.Locked/Released at 08/14/2020 16:31 by Ene Bender R.N. Name Value Range Interpretation Code Description Data Soheila rce(s) Supporting Document(s) ID Date Data Source [id number] 08/14/2020 12:26:00 PM EDT [facility] 1 Clinical Report - Physicians/Mid Levels [facility] Emergency Department [address] [place] [address] Phone #: ext- [phone] 08/14/2020 12:27 Patient: OWEN FLOYD Sex: F : 1975 Age: 45y Time Seen: 12:43 08/14/2020; initial patient contact, initial documentation. Arrived- By private vehicle. Historian- patient. Disposition decision: 15:44 08/14/2020.HISTORY OF PRESENT ILLNESS Chief Complaint: BOIL and TENDER AREA. 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 It was gradual in onset and has been constant. It is described as moderately painful. It has been located on the right abdomen. No cause has been identified. No recent med ication, insect bite or food exposure. Was not recently exposed to poison fara or poison oak. (Patient is diabetic and she was recently diagnosed COVID positive 1 week ago. she noted an indurated area on the right abdominal wall which became bigger and popped. she states that it drained a cup of purulent material. she states that it is getting worse and more painful. she had fevers up until 2 days ago but she thought it was because of her COVID).REVIEW OF SYSTEMSThe patient has had fever, chills and abdominal pain. No sore throat, cough, difficulty breathing,hoarseness or lump in throat. No headache, eye irritation, chest pain, nausea or diarrhea. No difficultywith urination or vomiting. All other systems reviewed and are negative.PAST HISTORYSee nurses notes. Problems: Dejenerative muscle disease. Dental Pain. Contusion. Chest Pain. Cellulitis. Anxiety Reaction. Spinal Stenosis. UTI - Urinary Tract Infection. Syncope. Neuopathy. Gastroesophageal Reflux Disease. Lifestyle / Substance Problems. Depression. Degenerative Joint Disease. Benign Positional Vertigo. Rheumatoid Arthritis. Diabetes Mellitus. Myocardial Infarction. 2 Clinical Report - Physicians/Mid Levels [facility] E mergency Department [address] [place] [address] Phone #: ext- [phone] 08/14/2020 12:27 Patient: OWEN FLOYD Sex: F : 1975 Age: 45y Additional Surgeries: . Tubal Ligation. Uterine ablasion. Uterine ablation. Medications: metFORMIN HCl Oral 500 mg, 2x a day. Omeprazole Oral 40 mg, daily. Lisinopril Oral (Tablet 40 mg), daily. Allergies: Aspirin.SOCIAL HISTORYNever smoker. Occasional alcohol use. Heavy drug use: marijuana.ADDITIONAL NOTESThe nursing notes have been reviewed.PHYSICAL EXAMVital Signs: 08/14/2020 12:28 BP: 137/79. MAP: 98. HR: 80. RR: 18. O2 saturation: 97%. Temp: 98.7 F.Pain level now: 4/10. Oxygen saturation normal.Appearance: Alert. Oriented X3. No acute distress.Eyes: Pupils equal, round and reactive to light. Conjunctivae and eyelids normal.ENT: Pharynx normal.Neck: Neck supple.CVS: Normal heart rate. Heart sounds no rmal.Respiratory: No respiratory distress. Breath sounds normal. Chest nontender.Abdomen: Moderate tenderness in the right lower quadrant.Skin: No cyanosis. Normal skin color. Skin not cool on palpation. No diaphoresis. Normal skin turgor.Single large tender indurated area with drainage to the abdomen. Large area of cellulitis to the abdomen.Single large abscess with drainage to the abdomen (10 x 12). Skin rash present- she has multipleexcoriated areas on both arms and lower extremities. (there is a 2 cm gaping draining area at thecenter of the indurated area on the right lower abdomen).Extremities: Normal external inspection. Extremities nontender.Neuro: Oriented X 3. No motor deficit.LABS, X-RAYS, AND EKGNote - Special Studies: Sanket coles Jubin - 08/14/2020 3:31:37 PMSoft tissue wound and cellulitis in the RLQ abdominal wall without fluid collections or abscesses. Nonobstructing renal calculi. Laboratory Tests: 3 Clinical Report - Physicians/Mid Levels [facility] Emergency Department [address] [place] [address] Phone #: ext- [phone] 08/14/2020 12:27 Patient: OWEN FLOYD Sex: F : 1975 Age: 45yCulture MRSA: (SANGITA: 08/14/2020 12:58) ( NegRcvd 08/14/2020 13:22) CanceledCBC w Diff: (SANGITA: 08/14/2020 12:50) ( NegRcvd 08/14/2020 13:48) Final results Test Result Flag Units (Reference) CBC W/AUTOMATED DIFF COMPLETE BLOOD COUNT WBC 11.8 H 10/uL (4.2 - 11.0) RBC 4.83 10/uL (4.20 - 5.40) HEMOGLOBIN 14.5 g/dL (12.0 - 16.0) HEMATOCRIT 42.2 % (37.0 - 47.0) MCV 87.4 fL (81.0 - 101) MCH 30.0 pg (27.0 - 34.0) MCHC 34.4 g/dL (31.0 - 36.0) RDW 11.6 % (11.5 - 14.5) PLATELETS 372 10/uL (150 - 450) MPV 9.8 fL (7.4 - 10.4) NEUT 52.6 % (37.0 - 80.0) LYMPH 37.8 % (25.0 - 40.0) MONO 7.3 % (3.0 - 8.0) EOS 1.8 % (0.0 - 7.0) BASO 0.3 % (0.0 - 2.5) %IG 0.2 H % (0.0 - 0.0) %NRBC 0.0 % (0.0 - 0.0) #NEUT 6.24 10/uL (2.00 - 6.90) #LYMPH 4.47 H 10/uL (0.60 - 3.40) #MONO 0.86 10/uL (0.00 - 0.90) #EOS 0.21 10/uL (0.00 - 0.70) #BASO 0.04 10/uL (0.00 - 0.20) #IG 0.02 10/uL (0.00 - 0.10) #NRBC 0.00 10/uL (0.00 - 0.00) MANUAL DIFF SEE BELOW SEGS 55 % (37 - 80) BAND 0 % (0 - 5) %LYMPH 39 % (25 - 40) %MONO 4 % (3 - 8) %EOS 2 % (0 - 7) %BASO 0 % (0 - 2) RBC MORPH NOT INDICATEDCMP: (SANGITA: 08/14/2020 12:50) ( MsgRcvd 08/14/2020 13:48) Final results Test Result Flag Units (Reference) COMPREHENSIVE METABOLIC PANEL COMPREHENSIVE METABOLIC PANEL SODIUM 136 mEq/L (134 - 153) POTASSIUM 4.4 mEq/L (3.6 - 5.0) CHLORIDE 98 mEq/L (98 - 107) CO2 27 MEQ/L (22 - 30) GLUCOSE 318 H MG/DL (70 - 99) BUN 8 MG/DL (7 - 21) CREATININE 0.4 L MG/DL (0.7 - 1.5) BUN/CREAT 20 (8 - 27) TOTAL PROTEIN 7.5 G/DL (6.3 - 8.2) ALBUMIN 3.8 L G/DL (3.9 - 5.0) GLOBULIN 3.7 H GM/DL (2.4 - 3.2) A/G RATIO 1.0 (0.8 - 2.0) CALCIUM 9.5 MG/DL (8.4 - 10.2) TOTAL BILI <0.7 MG/DL (0.2 - 1.3) 4 Clinical Report - Physicians/Mid Levels [facility] Emergency Department [address] [place] [address] Phone #: ext- [phone] 08/14/2020 12:27 Patient: OWEN FLOYD Sex: F : 1975 Age: 45y ALKALINE PHOS 89 U/L (38 - 126) SGOT/AST 9 U/L (5 - 40) SGPT/ALT 10 U/L (7 - 56) ANION GAP 11.0 mmol/L (8.0 - 16.0) AGE 45 yrs NON-AA GFR >60 mL/min AFR AMER GFR >60 mL/min Male GFR Interprentation 20-49 yrs >60 mL/min Normal 50-59 yrs >56 mL/min Normal 60-69 yrs >49 mL/min Normal 70-79yrs >42 mL/min Normal 80 and above >35 mL/min Normal Female GFR Interpretation 20-39 yrs >60 mL/min Normal 40-49 yrs >58 mL/min Normal 50-59 yrs >51 mL/min Normal 60-69 yrs >45 mL/min Normal 70-79 yrs >39 mL/min Normal 80 and above >32 mL/min Normal Lactic Acid: (SANGITA: 08/14/2020 12:50) ( [facility] 08/14/2020 13:34) Final results Test Result Flag Units (Reference) LACTIC ACID 1.9 MMOL/L (0.2 - 2.2) PT/INR: (SANGITA: 08/14/2020 12:43) ( MsgRcvd 08/14/2020 13:14) Canceled PT/PTT: (SANGITA: 08/14/2020 12:50) ( [facility] 08/14/2020 13:34) Final resu lts Test Result Flag Units (Reference) PROTIME 11.9 SECONDS (11.0 - 15.5) INR 0.87 L (0.93 - 1.23) PTT 26.9 SECONDS (24.8 - 36.7) \\BLDo\\INR INTERPRETATION\\BLDx\\ Therapeutic range for Coumadin and related oral anticoagulants. -International Normalized Ratio (INR): 2.0 - 3.0 for Venous Thrombosis, Pulmonary Embolus, Tissue heart valves, Acute ID Atrial Fibrillation, Valvular heart disease and recurrent Systemic Embolism. -International Normalized Ratio (INR): 2.5 - 3.5 for Mechanical Prosthetic valve..PROGRESS AND PROCEDURESCourse of Care: 14:00 08/14/20. patient has a large abscess on the right lower abdominal wall. willsend cultures as well as blood work and do ct scan to see how deep the abscess is. her FSG was 318she was given ND bolus as well as clindamycin IV for possible MRSA 15:42 08/14/20. ct scan of the abdomen showed cellulitis on the RLQ area, no fluid collection noted. since patient is diabetic and has an elevated wbc. I spoke with Fern Hernandez who admitted the patient 15:52 08/14/20. Patient was advised admission but now she refused as she dos not want to be stuck in the hospital. risk of leaving AMA including sepsis and explained . she understands and still wants to sign AMA. Critical care performed (45 minutes). Time is exclusive of separately billable procedures. Time includes: direct patient care, patient reassessment, coordination of patient care, interpretation of data (laboratory data and pulse oximetry), review of patient's medical records, medical consultation, family consultation 5 Clinical Report - Physicians/Mid Levels [facility] Emergency Department [address] [place] [address] Phone #: ext- [phone] 08/14/2020 12:27 [id number] Sex: F : 1975 Age: 45y regarding treatment decisions and documentation of patient care- see progress notes. Disposition: Condition: good and stable.CLINICAL IMPRESSION Cellulitis of the abdominal wall. Moderate hyperglycemia.INSTRUCTIONS (you were advised admission for IV antibiotics as you have a draining abscess and cellulitis of the abdomen and you are diabetic. you refused admission and signed but AMA. take the antibiotics as prescribed. follow up with your doctor in am or return to the ER if condition worsens or does not improve). Your Current Medications: Your current home medications have been reviewed. CONTINUE TAKING THE FOLLOWING MEDICATIONS: Lisinopril Oral : Tablet 40 mg, daily. metFORMIN HCl Oral : 500 mg 2x a day. Omeprazole Oral : 40 mg daily. Prescription Medications: clindamycin HCl 300 mg capsule Take 1 capsule four times a day for 10 days -- Dispense 40 capsule. Refills: 0. Substitution permitted. Pharmacy - [id number] - [address] [place] [address] ; [place], [place] [phone]. . Follow-up: Follow up with your healthcare provider tomorrow. Reason for referral: evaluation. Summary of care provided to patient via paper. AMA warnings: Time of assessment: 15:53 08/14/2020. Oriented to person, place, and time. Gives appropriate answers and rational explanation of refusal of care. Speaks coherently. No signs of psychosis, auditory hallucinations, delusional thinking, suicidal ideations or slurred speech. No tangential thinking, visual hallucinations or homicidal ideations. Abstract thinking intact. Clinical Impression: the patient has the capacity to make decisions regarding the medical care offered. The suspected diagnosis, based upon the initiated medical screening exam, is abdominal wall cellulitis; hyperglycemia and has been discussed with the patient. Acknowledges understanding of the reasons for recommendations regarding medical treatment, admission to facility and further observation. The recommended medical care being refused is admission for IV andtibiotics and has been discussed with the patient and family. The risks of refusing recommended care that were disclosed and acknowledged 6 Clinical Report - Physicians/Mid Levels [facility] Emergency Department [address] [place] [address] Phone #: ext- [phone] 08/14/2020 12:27 Patient: OWEN FLOYD Sex: F : 1975 Age: 45y are , permanent mental impairment, loss of sexual function and loss of current lifestyle. Discharge instructions were provided to the patient.(Electronically signed by Barb Ferrell 08/15/2020 02:28) Name Value Range Interpretation Code Description Data Soheila rce(s) Supporting Document(s) ID Date Data Source [id number] 08/14/2020 12:26:00 PM EDT [facility] Addenda for OWEN FLOYD VisitID: [id number] Date: 15:53MED REC FAXED WITH [facility] @15:50(Electronically signed by Jason Heaton 08/14/2020 15:53) Name Value Range Interpretation Code Description Data Soheila rce(s) Supporting Document(s) ID Date Data Source [id number] 08/20/2020 06:47:00 AM EDT [facility] Name Value Range Interpretation Code Description Data Soheila rce(s) Supporting Document(s) Bacteria identified in Blood by Culture [facility] NO GROWTH AFTER 5 DAYS ID Date Data Source [id number] 08/27/2020 06:52:00 AM EDT [facility] Name Value Range Interpretation Code Description Data Soheila rce(s) Supporting Document(s) CULTURE BLOOD [facility] _CULTURE BLOOD_ [place] [address] IA# [id number] SEE SCANNED REPORT{ PRELIM ID Date Data Source [id number] 08/18/2020 06:51:00 AM EDT [facility] Name Value Range Interpretation Code Description Data Soheila rce(s) Supporting Document(s) CULTURE WOUND [facility] _CULTURE WOUND_$$[id number] DATE/TIME: 08/17/2020 15:06Culture: CULTURE WOUND Status: FinalIsolate 1 Beta hemolytic Streptococcus, group B Flag: A . . . . . . .4Heavy growthPenicillin and ampicillin are drugs of choice for treatment ofbeta-hemolytic streptococcal infections. Susceptibility testing ofpenicillins and other beta-lactam agents approved by the FDA fortreatment of beta-hemolytic streptococcal infections need not beperformed routinely because nonsusceptible isolates are extremelyrare in any beta-hemolytic streptococcus and have not been reportedfor Streptococcus pyogenes (group A). (CLSI)Aerobic Bacterial Culture: P1Beta hemolytic Streptococcus, group B Flag: AP1 Test performed by: [facility] Constantin VOGT #: [id number] [address] [id number] [facility] [id number] -- Continued on next page --Patient: MARIEL Bunch Order: [id number] Page 2Culture: CULTURE WOUND Status: Final ====Slate Mixer : Nick Whaley MD NPI #:Agronomy Research Manager : [email or web address] REF ID Date Data Source [id number] 08/21/2020 06:42:00 AM EDT [facility] Name Value Range Interpretation Code Description Data Soheila rce(s) Supporting Document(s) CULTURE BLOOD [facility] spital _CULTURE BLOOD_ [place] [address] CLIA# [id number] SEE SCANNED REPORT{ PRELIM ID Date Data Source [id number] 08/14/2020 01:48:00 PM EDT [facility] Name Value Range Interpretation Code Description Data Soheila rce(s) Supporting Document(s) CBC W/AUTOMATED DIFF [facility] COMPLETE BLOOD COUNT Leukocytes [#/volume] in Blood by Automated count 11.8 10^3/uL 4.2 - 11.0 H [facility] Erythrocytes [#/volume] in Blood by Automated count 4.83 10^6/uL 4. 20 - 5.40 [facility] Hemoglobin [Mass/volume] in Blood 14.5 g/dL 12.0 - 16.0 [facility] Hematocrit [Volume Fraction] of Blood by Automated count 42.2 % 3 7.0 - 47.0 [facility] Erythrocyte mean corpuscular volume [Entitic volume] by Auto mated count 87.4 fL 81.0 - 101 [facility] Erythrocyte mean corpuscular hemoglobin [Entitic mass] by Automated count 30.0 pg 27.0 - 34.0 [facility] Erythrocyte mean corpuscular hemoglobin concentration [Mass/volume] by Automated count 34.4 g/dL 31.0 - 36.0 [facility] Erythrocyte distribution width [Ratio] by Automated count 11.6 % 11.5 - 14.5 [facility] Platelets [#/volume] in Blood by Automated count 372 10^3/uL 150 - 45 0 [facility] Platelet mean volume [Entitic volume] in Blood by Automated count 9.8 fL 7.4 - 10.4 [facility] Neutrophils/100 leukocytes in Blood by Automated count 52.6 % 37. 0 - 80.0 [facility] Lymphocytes/100 leukocytes in Blood by Manual count 37.8 % 25.0 - 40.0 [facility] Monocytes/100 leukocytes in Blood by Automated count 7.3 % 3.0 - 8.0 [facility] Eosinophils/100 leukocytes in Blood by Automated count 1.8 % 0.0 - 7.0 [facility] 0.3 %IG 0.2 % 0.0 - 0.0 H [facility] al %NRBC 0.0 % 0.0 - 0.0 [facility] al Neutrophils [#/volume] in Blood by Automated count 6.24 10^3/uL 2.00 - 6.90 [facility] Lymphocytes [#/volume] in Blood by Automated count 4.47 10^3/uL 0.60 - 3.40 H [facility] Monocytes [#/volume] in Blood by Automated count 0.86 10^3/uL 0.00 - 0.90 [facility] Eosinophils [#/volume] in Blood by Automated count 0.21 10^3/uL 0.00 - 0.70 [facility] Basophils [#/volume] in Blood by Automated count 0.04 10^3/uL 0.00 - 0.20 [facility] #IG 0.02 10^3/uL 0.00 - 0.10 [facility] #NRBC 0.00 10^3/uL 0.00 - 0.00 [facility] MANUAL DIFF SEE BELOW [facility] ital Segmented neutrophils/100 leukocytes in Blood by Manual count 55 % 37 - 80 [facility] BAND 0 % 0 - 5 [facility] %LYMPH 39 % 25 - 40 [facility]MONO 4 % 3 - 8 [facility] %EOS 2 % 0 - 7 [facility] 0 RBC MORPH NOT INDICATED [facility] ID Date Data Source [id number] 08/14/2020 01:48:00 PM EDT [facility] Name Value Range Interpretation Code Description Data Soheila rce(s) Supporting Document(s) COMPREHENSIVE METABOLIC PANEL [facility] COMPREHENSIVE METABOLIC PANEL Sodium [Moles/volume] in Serum or Plasma 136 mEq/L 134 - 153 [facility] Potassium [Moles/volume] in Serum or Plasma 4.4 mEq/L 3.6 - 5.0 [facility] Chloride [Moles/volume] in Serum or Plasma 98 mEq/L 98 - 107 [facility] Carbon dioxide, total [Moles/volume] in Serum or Plasma 27 MEQ/L 22 - 30 [facility] Glucose [Mass/volume] in Serum or Plasma 318 MG/DL 70 - 99 H [facility] BUN 8 MG/DL 7 - 21 [facility] al Creatinine [Mass/volume] in Serum or Plasma 0.4 MG/DL 0.7 - 1.5 L [facility] BUN/CREAT 20 8 - 27 [facility] al Protein [Mass/volume] in Serum or Plasma 7.5 G/DL 6.3 - 8.2 [facility] Albumin [Mass/volume] in Serum or Plasma 3.8 G/DL 3.9 - 5.0 L [facility] Globulin [Mass/volume] in Serum by calculation 3.7 GM/DL 2.4 - 3.2 H [facility] A/G RATIO 1.0 0.8 - 2.0 [facility] al Calcium [Mass/volume] in Serum or Plasma 9.5 MG/DL 8.4 - 10.2 [facility] Bilirubin.total [Mass/volume] in Serum or Plasma <0.7 MG/DL 0.2 - 1.3 [facility] Alkaline phosphatase [Enzymatic activity/volume] in Serum or Plasma 89 U/L 38 - 126 [facility] Aspartate aminotransferase [Enzymatic activity/volume] in Se rum or Plasma 9 U/L 5 - 40 [facility] Alanine aminotransferase [Enzymatic activity/volume] in Seru m or Plasma 10 U/L 7 - 56 [facility] Anion gap 3 in Serum or Plasma 11.0 mmol/L 8.0 - 16.0 [facility] AGE 45 yrs [facility] al NON-AA GFR >60 mL/min [facility] ital AFR AMER GFR >60 mL/min [facility] Male GFR In terprentation 20-49 yrs >60 mL/min Normal 50-59 yrs >56 mL/min Normal 60-69 yrs >49 mL/min Normal 70-79yrs >42 mL/min Normal 80 and above >35 mL/min Normal Female GFR Interpretation 20-39 yrs >60 mL/min Normal 40-49 yrs >58 mL/min Normal 50-59 yrs >51 mL/min Normal 60-69 yrs >45 mL/min Normal 70-79 yrs >39 mL/min Normal 80 and above >32 mL/min Normal ID Date Data Source [id number] 08/14/2020 01:34:00 PM EDT [facility] Name Value Range Interpretation Code Description Data Soheila rce(s) Supporting Document(s) Prothrombin time (PT) 11.9 SECONDS 11.0 - 15.5 [facility] INR in Platelet poor plasma by Coagulation assay 0.87 0.93 - 1. 23 L [facility] aPTT in Blood by Coagulation assay 26.9 SECONDS 24.8 - 36.7 [facility] \\BLDo\\INR INTERPRETATION\\BLDx\\ Therapeutic range for Coumadin and related oral anticoagulants. - International Normalized Ratio (INR): 2.0 - 3.0 for Venous Thrombosis, Pulmonary Embolus, Tissue heart valves, Acute ID Atrial Fibrillation, Valvular heart disease and recurrent Systemic Embolism. - International Normalized Ratio (INR): 2.5 - 3.5 for Mechanical Prosthetic valve. ID Date Data Source [id number] 08/14/2020 01:34:00 PM EDT [facility] Name Value Range Interpretation Code Description Data Soheila rce(s) Supporting Document(s) Lactate [Moles/volume] in Serum or Plasma 1.9 MMOL/L 0.2 - 2.2 [facility] ID Date Data Source [id number] 08/05/2020 03:29:00 PM EDT [facility] Name Value Range Interpretation Code Description Data Soheila rce(s) Supporting Document(s) SARS coronavirus 2 RNA Detected [facility] This lab was ordered by [facility] richard and reported by [facility]. ID Date Data Source [id number] 08/07/2020 09:31:00 PM EDT [facility] Name Value Range Interpretation Code Description Data Soheila rce(s) Supporting Document(s) SARS-CoV-2, SHUN Detected Not Detected [facility] Patients who have a positive COVID-[address] te [address] result may now havetreatment options. Treatment options are available for patientswith mild to moderate symptoms and for hospitalized patients.Visit our website at [email or web address] forresources and information.This nucleic acid amplification test was developed and its performancecharacteristics determined by [facility]. Nucleic acidamplification tests include RT-PCR and TMA. This test has not beenFDA cleared or approved. This test has been authorized by FDA underan Emergency Use Authorization (EUA). This test is only authorizedfor the duration of time the declaration that circumstances existjustifying the authorization of the emergency use of in vitrodiagnostic tests for detection of SARS-CoV-2 virus and/or diagnosisof COVID-19 infection under section 564(b)(1) of the Act, 21 U.S.C.360bbb-3(b) (1), unless the authorization is terminated or revokedsooner.When diagnostic testing is negative, the possibility of a falsenegative result should be considered in the context of a patient'srecent exposures and the presence of clinical signs and symptomsconsistent with COVID- 19. An individual without symptoms of COVID-19and who is not shedding SARS-CoV-2 virus would expect to have anegative (not detected) result in this assay. SARS-CoV-2, SHUN 2 DAY TAT Performed [facility] ID Date Data Source [id number] 07/13/2020 12:33:00 PM EDT [facility] 1 OrderSheet [facility] Emergency Department [address] [place] [address] Phone #: ext- [phone] 07/13/2020 12:32 Patient: OWEN FLOYD Sex: F : 1975 Age: 44yWEIGHT:86.1 kg (S) HEIGHT:63 inches (S) BMI:33.6ALLERGIES: AspirinCHIEF COMPLAINT: dental painDIAGNOSIS: ToothacheLAB ORDERSOrder Description Priority Entered Acknowledged InitialedDIAGNOSTIC STUDY ORDERSOrder Description Priority Entered Acknowledged InitialedMEDICATION/IV/DRIP/FLUID ORDERSOrder Description Priority Entered Acknowledged InitialedRocephin IM 1000 14:05 07/13/2020 14:21 Tavon,mg Chadnler Greer RN P.A.-C;Toradol IM 30 mg 14:05 07/13/2020 14:22 Chandler Montes De Oca RN P.A.-C;Lidocaine Viscous 14:05 07/13/2020 14:22 Tavon,PO 15 mL (apply to Chandler Greer RNgauze then to P.A.-C;tooth)[place] (7.5-325mg) 14:05 07/13/2020 14:22 Tavon,PO 1 tab (HIGH Chandler Greer RNALERT P.A.- C;MEDICATION)Tylenol PO 650 mg 14:05 07/13/2020 14:22 Chanlder Montes De Oca RN PTerrell;GENERAL ORDERSOrder Description Priority Entered Acknowledged Initialed[Electronically signed by Katerina Pierce RN (14:53 07/02)][Electronically signed by Chandler Fuchs P.A.-C (00:04 07/14/2020)][Electronically locked by Katerina Pierce RN (14:53 07/13/2020)] Name Value Range Interpretation Code Description Data Soheila rce(s) Supporting Document(s) ID Date Data Source [id number] 07/13/2020 12:33:00 PM EDT [facility] 1 Medication Reconciliation Report [facility] Emergency Department [address] [place] [address] Phone #: [phone] 07/13/2020 12:32 Patient: OWEN FLOYD Sex: F : 1975 Age: 44yWeight: 86.1 kgHeight/Length: 63 in.BMI: 33.6ALLERGIES: AspirinThe patient's Home Medications are listed below:CONTINUE TAKING THE FOLLOWING MEDICATIONS: Lisinopril Oral (40 mg), daily metFORMIN HCl Oral 500 mg, 2x a day Omeprazole Oral 40 mg, daily Paxil Oral 10 mg, dailyThe source(s) of the original Home Medication information:patientThe following Medications were given to the patient in the Emergency Department:Rocephin [IM] IM 1 gm, administered: 14:21 07/13/2020Toradol [IM] IM 30 mg, administered: 14:07/13/2020idocaine Viscous [PO] PO 15 mL, administered: 14:07/13/2020NORCO (7.5-325MG) [PO] PO 1 tab, administered: 14:07/13/2020Tylenol [PO] PO 650 mg, administered: 14:07/13/2020The following Medications were prescribed to the patient:Augmentin 875 mg-125 mg tablet Take 1 tablet twice a day for 10 days -- Dispense 20 tablet. Refills: 0 .Substitution permitted.[facility] [address] [place] [phone]. . 2 Medication Reconciliation Report [facility] Emergency Department [address] [place] [address] Phone #: ext- [phone] 07/13/2020 12:32 Patient: OWEN FLOYD Sex: F : 1975 Age: 44yOral Anesthetic 20 % mucosal gel Apply a small amount four times a day for 10 days -- Dispense 1tube. Refills: 0. Substitution permitted. Note to Pharmacy - Rx Discount Card: 7.62. Use: BIN:[id number],PCN:LAVELL, Group:[id number], ID:[id number].[facility] [address] [place] [phone]. .gabapentin 100 mg capsule Take 1 capsule three times a day for 3 days -- Dispense 9 capsule. Refills:0. Substitution permitted.[facility] [address] [place] [address] [phone]. . -- Chandler Fuchs P.A.-C Name Value Range Interpretation Code Description Data Soheila rce(s) Supporting Document(s) ID Date Data Source [id number] 07/13/2020 12:33:00 PM EDT [facility] 1 Medication Administration Record [facility] Emergency Department [address] [place] [address] Phone #: ext- [phone] 07/13/2020 12:32 Patient: OWEN FLOYD Sex: F : 1975 Age: 44yWeight: 86.1 kgHeight/Length: 63 inBMI: 33.6ALLERGIES: Aspirin Date/Time Medication Administered Medication OrderedGiven ROCEPHIN [IM] (CEFTRIAXONE Rocephin IM 1000 mg14:07/13/2020 SODIUM)Zoey Montes De Oca RN Dose: 1 gm IMGiven TORADOL [IM] (KETOROLAC Toradol IM 30 mg14:22 07/13/2020 TROMETHAMINE)Zoey Montes De Oca RN Dose: 30 mg IMGiven LIDOCAINE VISCOUS [PO] Lidocaine Viscous PO 15 mL14:22 07/13/2020 Dose: 15 mL PO (apply to gauze then to tooth)Zoey Montes De Oca RNGiven NORCO (7.5-325MG) [PO] [place] (7.5-325mg) PO 1 tab (HIGH14:07/13/2020 (ACETAMINOPHEN- HYDROCODONE) ALERT MEDICATION)Zoey Montes De Oca RN Dose: 1 tab POGiven TYLENOL [PO] (APAP) Tylenol PO 650 mg14:22 07/13/2020 Dose: 650 mg Zoey Calvo RN Name Value Range Interpretation Code Description Data Soheila rce(s) Supporting Document(s) ID Date Data Source [id number] 07/13/2020 12:33:00 PM EDT [facility] 1 General Instructions [facility] Emergency Department [address] [place] [address] Phone #: ext- [phone] 07/13/2020 12:32 Patient: OWEN FLOYD Sex: F : 1975 Age: 44yModerate dental pain.INSTRUCTIONSTake Tylenol (Acetaminophen) or Motrin (Ibuprofen) as needed for fever control. Take medicationaccording to label instructions.Drink plenty of fluids. No dietary restrictions.(Recommend to utilize OTC Motrin and Tylenol to control inflammation and pain management.Recommend to follow the instructions on the bottle and not to exceed.).Warnings: Further evaluation is necessary.SEDATIVE MEDICATION: You were given sedative medication during your visit. Do not drive or operatedangerous machinery.GENERAL WARNINGS: Return or contact your physician immediately if your condition worsens orchanges unexpectedly, if not improving as expected, or if other problems arise.Your Current Medications: Your current home medications have been reviewed.CONTINUE TAKING THE FOLLOWING MEDICATIONS:Lisinopril Oral : Tablet 40 mg, daily.metFORMIN HCl Oral : 500 mg 2x a day.Omeprazole Oral : 40 mg daily.Paxil Oral : 10 mg daily.Prescription Medications:Augmentin 875 mg-125 mg tablet Take 1 tablet twice a day for 10 days -- Dispense 20 tablet. Refills: 0. Substitution permitted.[facility] [address] [place] [phone]. .Oral Anesthetic 20 % mucosal gel Apply a small amount four times a day for 10 days -- Dispense 1tube. Refills: 0. Substitution permitted. Note to Pharmacy - Rx Discount Card: 7.62. Use: BIN:[id number],PCN:LAVELL, Group:EMR, ID:[id number].[facility] [address] ; [place], [place] [phone]. .gabapentin 100 mg capsule Take 1 capsule three times a day for 3 days -- Dispense 9 capsule. Refills:0. Substitution permitted.[facility] [address] [place] [address] [phone]. Phone: [phone] General Instructions [facility] Emergency Department [address] [place] [address] Phone #: ext- [phone] 07/13/2020 12:32 Patient: OWEN FLOYD Sex: F : 1975 Age: [id number] .Follow-up:Return to the emergency department as needed. Follow up with your healthcare provider in about twodays if not better. Call for an appointment. Follow up with a dentist and an oral surgeon. Call for the nextavailable appointment.Understanding of the discharge instructions verbalized by patient. ADDITIONAL INFORMATIONDental PainA crack or cavity in a tooth can cause tooth pain. This is because the crack or cavity exposes thesensitive inner area of the tooth. An infection in the gum or the tooth's root can cause pain andswelling. The pain is often made worse when you have a hot or cold drink. It can also be worse whenyou bite on hard foods. Pain may spread from the tooth to your ear, or to the part of the jaw on thesame side. 3 General Instructions [facility] Emergency Department [address] [place] [address] Phone #: ext- [phone] 07/13/2020 12:32 Patient: OWEN FLOYD Sex: F : 1975 Age: 44yHome careFollow these tips when caring for yourself at home: Don't have hot and cold foods and drinks. Your tooth may be sensitive to changes in temperature. Use toothpaste made for sensitive teeth. [place] gently up and down instead of sideways. Brushing sideways can wear away root surfaces if they are exposed. If your tooth is chipped or cracked, see a dentist right away. For short-term pain relief, put clove oil right on the tooth. You can buy clove oil at pharmacies. Some pharmacies carry an bfag-abq-ntmanyr toothache kit. This has a paste you can put on the exposed tooth to make it less sensitive. Use a cold pack. Put a cold pack on your jaw over the sore area to help reduce pain. Ask your healthcare provider about using otrm-ecv-qchtvlf medicine for pain. You may use this unless your provider prescribed another medicine. If you have long-term (chronic) liver or kidney disease, talk with your provider before using acetaminophen or ibuprofen. Also talk with your provider if you've had a stomach ulcer or GI (gastrointestinal) bleeding. Be aware of infection. If you have signs of an infection, you will be given an antibiotic. Take it as directed.Follow-up careFollow up with your dentist, or as advised. Your pain may go away with the treatment given today. Butonly a dentist can fully check and treat the cause of your pain. This will keep the pain from comingback.Call [phone] if any of these occur: Abnormal drowsiness Headache or stiff neck Weakness or fainting Trouble swallowing or breathingWhen to get medical adviceCall your healthcare provider right away if any of these occur: 4 General Instructions [facility] Emergency Department [address] [place] [address] Phone #: ext- [phone] 07/13/2020 12:32 Patient: OWEN FLOYD Sex: F : 1975 Age: 44y Your face gets swollen or red Pain gets worse or spreads to your neck Fever of 100.4F (38.0C) or higher, or as directed by your provider Pus drains from the tooth 1999- 2019 [employer]. [address] [place], [place] [address]. All rights reserved. This information is not intended as asubstitute for professional medical care. Always follow your healthcare professional's instructions. You have been given the following additional information: Dental Pain(Electronically signed by Chandler Fuchs P.A.-C 07/14/2020 00:04) Name Value Range Interpretation Code Description Data Soheila rce(s) Supporting Document(s) ID Date Data Source [id number] 07/13/2020 12:33:00 PM EDT [facility] 1 Clinical Report - Nurses [facility] Emergency Department [address] [place] [address] Phone #: ext- [phone] 07/13/2020 12:32 Patient: OWEN FLOYD Sex: F : 1975 Age: 44yTRIAGEArrived by private vehicle. Historian: patient. Accompanied by friend. ( presents with c/o toothache,states it started 3 days ago on L side, states she has cracked teeth, had a dentist appt but missed it).Triage time: 12:34 07/13/2020. Acuity: LEVEL 4.Chief Complaint: LEFT UPPER and LOWER TOOTHACHE.Alert. No acute distress.Onset. (3 days). 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 (3 hrs ago).SEPSIS SCREEN: SIRS SCREEN NEGATIVE. SEPSIS SCREEN NEGATIVE. No suspected or confirmedsigns of infection present. --12:41 07/13/20 Zoey Montes De Oca RN12:34 07/13/20. BP: 161/97. MAP: 118. HR: 78. RR: 20. O2 saturation: 95%. Temp: 97.5 F. Pain levelnow: 8/1 0. --12:41 07/13/20 Zoey Montes De Oca RN.Weight: 86.1 kg stated. Height/Length: 63 inches Per Patient. BMI: 33.6. --12:38 07/13/20 Zoey Montes De Oca RN.MedicationsLisinopril Oral (Tablet 40 mg), daily. metFORMIN HCl Oral 500 mg, 2x a day. Omeprazole Oral 40 mg, daily. --12:36 07/13/20 Zoey Montes De Oca RN Paxil Oral 10 mg, daily. --12:36 07/13/20 Zoey Montes De Oca RN.AllergiesAspirin. --12:36 07/13/20 Zoey Montes De Oca RN.PROBLEMS:Depression.Anxiety Reaction.Spinal Stenosis.UTI - Urinary Tract Infection.Syncope. --12:37 07/13/20 Zoey Montes De Oca RNThe following entry was modified by Zoey Montes De Oca RN, 12:37 07/13/20H ypertension. --12:37 07/13/20 Zoey Montes De Oca RN. 2 Clinical Report - Nurses [facility] Emergency Department [address] [place] [address] Phone #: ext- [phone] 07/13/2020 12:32 Patient: OWEN FLOYD Sex: F : 1975 Age: 44y Medication/allergy information source: the patient and patient's previous visit record. --12:41 07/13/20 Zoey Montes De Oca RN. ADDITIONAL SURGERIES: . Tubal Ligation. Uterine ablasion. --12:37 07/13/20 Zoey Montes De Oca RN. History PAST MEDICAL HX: Last normal menstrual period- 2011. SOCIAL HX: Heavy tobacco smoker- 1 pack per day. Drug use: marijuana. No alcohol use. She was offered HIV testing but declined and hepatitis C testing but declined. She has not traveled outside the [place] Infectious disease exposure: No infectious disease exposure. SELF HARM ASSESSMENT: Self harm assessment was performed. The patient answered "no" to the question(s) "Have you recently felt down, depressed, or hopeless?". ABUSE ASSESSMENT: No report of abuse. NUTRITIONAL RISK ASSESSMENT: The nutritional risk assessment revealed no deficiencies. FUNCTIONAL ASSESSMENT: Functional assessment: no impairments noted. LEARNING NEEDS ASSESSMENT: The learning needs assessment revealed no barriers. FALL RISK ASSESSMENT: Fall risk assessment completed. No risk factors identified. SKIN INTEGRITY ASSESSMENT: Skin integrity risk assessment completed. No skin integrity risk identified. --12:41 07/13/20 Zoey Montes De Oca, RADHA.PHYSICAL QAYITKINKC47:12 07/13/20. Ambulatory to room.GENERAL / NEURO / PSYCH: Alert. Oriented X 4. Appears in pain.HEENT: Mouth within normal limits upon inspection. Dental tenderness (left upper canine). Mucousmembranes are pink.RESPIRATORY: Respirations not labored.SKIN: Skin is warm and dry. --13:13 07/13/20 Katerina Pierce RN.NURSING PROGRESS NOTES13:07/13/20. Two patient identifiers checked. Bed placed in lowest position. Brakes of bed on.Patient ready for evaluation- PA notified. --13:13 07/13/20 Katerina Pierce RN 3 Clinical Report - Nurses [facility] Emergency Department [address] [place] [address] Phone #: ext- [phone] 07/13/2020 12:32 Patient: OWEN FLOYD Sex: F : 1975 Age: 44y 14:21 07/13/2020 Rocephin (cefTRIAXone Sodium) IM 1 gm given. Given in the right gluteus ember. Allergies verified and confirmed 5 rights. Information reviewed with patient including reason for taking this medication. Verbalizes understanding. --14:21 07/13/20 Zoey Montes De Oca RN 14:22 07/13/2020 Toradol (Ketorolac Tromethamine) IM 30 mg given. Given in the left gluteus ember. Allergies verified and confirmed 5 rights. Information reviewed with patient including reason for taking this medication. Verbalizes understanding. --14:22 07/13/20 Zoey Montes De Oca RN 14:22 07/13/2020 Lidocaine Viscous PO 15 mL given. Allergies verified and confirmed 5 rights. Information reviewed with patient including reason for taking this medication. Verbalizes understanding. --14:22 07/13/20 Zoey Montes De Oca RN 14:22 07/13/2020 NORCO (7.5-325MG) (Acetaminophen- HYDROcodone) PO 1 tab given. Allergies verified and confirmed 5 rights. Information reviewed with patient including reason for taking this medication and sedative warning. Verbalizes understanding. --14:22 07/13/20 Zoey Montes De Oca RN 14:22 07/13/2020 Tylenol (APAP) PO 650 mg given. Allergies verified and confirmed 5 rights. Information reviewed with patient including reason for taking this medication. Verbalizes understanding. --14:22 07/13/20 Zoey Montes De Oca RN.DISPOSITION / DISCHARGE 14:47 07/13/20. Condition at departure: improved and stable. No learning barriers present. Discharge instructions provided and reviewed with the patient. Reviewed medication(s). Patient verbalized understanding. Written instructions provided in Tunisian. The patient was discharged home. She left ambulatory and via private vehicle. Driving (taxi). --14:49 07/13/20 Katerina Pierce RN 14:45 07/13/20. BP: 141/89. MAP: 106. HR: 71. RR: 18. O2 saturation: 99%. Temp: 98.4 F. Pain level now: 05/11. --14:49 07/13/20 Katerina Pierce RN.Locked/Released at 07/13/2020 14:53 by Katerina Pierce RN Name Value Range Interpretation Code Description Data Soheila rce(s) Supporting Document(s) ID Date Data Source [id number] 07/13/2020 12:33:00 PM EDT [facility] 1 Clinical Report - Physicians/Mid Levels [facility] Emergency Department [address] [place] [address] Phone #: ext- [phone] 07/13/2020 12:32 Patient: OWEN FLOYD Sex: F : 1975 Age: 44y Time Seen: 14:04 07/13/2020; initial patient contact, initial documentation. Arrived- By private vehicle. Historian- patient. Disposition decision: 14:40 07/13/2020.HISTORY OF PRESENT ILLNESS Chief Complaint: DENTAL PAIN. This started about 3 days ago and is still present. Pain described as mild. No sore throat, mouth sores, nasal discharge or congestion or ear pain. No swollen jaw or face. She has had toothache, jaw pain and facial pain. (presents with c/o toothache, states it started 3 days ago on L side, states she has cracked teeth, had a dentist appt but missed it). Similar symptoms previously. None. Recent medical care: Not recently seen/assessed.REVIEW OF SYSTEMSNo fever, eye discomfort, cough, difficulty breathing or chest pain. No nausea, diarrhea, abdominal pain,difficulty with urination or headache. No fainting episodes, joint pain, sk in rash, enlarged lymph nodes orvomiting. All other systems reviewed and are negative.PAST HISTORYSee nurses notes. Problems: Dejenerative muscle disease. Degenerative Joint Disease. Gastroesophageal Reflux Disease. Benign Positional Vertigo. Diabetes Mellitus. Cellulitis. Contusion. Chest Pain. Rheumatoid Arthritis. Neuopathy. Myocardial Infarction. Lifestyle / Substance Problems. Depression. Anxiety Reaction. Spinal Stenosis. UTI - Urinary Tract Infection. 2 Clinical Report - Physicians/Mid Levels [facility] Emergency Department [address] [place] [address] Phone #: ext- [phone] 07/13/2020 12:32 Patient: OWEN FLOYD Sex: F : 1975 Age: 44y Syncope. Additional Surgeries: . Tubal Ligation. Uterine ablasion. Uterine ablation. Medications: Paxil Oral 10 mg, daily. Lisinopril Oral (Tablet 40 mg), daily. metFORMIN HCl Oral 500 mg, 2x a day. Omeprazole Oral 40 mg, daily. Allergies: Aspirin.SOCIAL HISTORYHeavy tobacco smoker- less than 1 pack per day. Drug use: marijuana. No alcohol use.ADDITIONAL NOTESThe nursing notes have been reviewed.PHYSICAL EXAMVital Signs: 07/13/2020 12:34 BP: 161/97. MAP: 118. HR: 78. RR: 20. O2 saturation: 95%. Temp: 97.5 F.Pain level now: 10/11. Have been reviewed. Oxygen saturation normal.Appearance: Alert. No acute distress.Eyes: Eyelids appear normal to inspection. Conjunctivae and sclerae appear normal to inspection.Corneas appear normal to inspection. Pupils equal, round and reactive to light. Periorbital areas appearnormal to inspection. Anterior chambers clear.ENT: Normal ENT inspection. Airway intact. TM's normal. Ears normal. Nose normal. Nares normal.Moderate dental tenderness (upper left teeth). Mild localized gingival erythema. Pharynx normal. Moistmucous membranes. Uvula midline. Voice normal.Neck: Trachea midline. No adenopathy. Thyroid normal.CVS: Normal heart rate and rhythm. No JVD present. Pulses normal. Capillary refill normal. Strongperipheral pulses. Heart sounds normal. Pulses: right radial 2+; left radial 2+.Respiratory: Chest normal on inspection. No respiratory distress. Unlabored respirations. Lungs clear.Good chest movement. Breath sounds normal and equal.Neuro: Awake. Alert. Mood/affect normal. Speech normal. No motor deficit. No sensory deficit.Psych: Cognition normal. Thought process and content normal. Insight and judgement normal.PROGRESS AND PROCEDURESCourse of Care: Enter room and pt lying peacefully in bed in NAD. Patient stable. Denies any ne wissues, concerns, or complaints. VSS, NAD, AOx3, interacting well and appropriately, no use ofaccessory muscle, able to speak full sentences, stable, non-toxic looking. 3 Clinical Report - Physicians/Mid Levels [facility] Emergency Department [address] [place] [address] Phone #: ext- [phone] 07/13/2020 12:32 Patient: OWEN FLOYD Sex: F : 1975 Age: 44y Pt indicates she has dental pain. Sts she missed her oral surgeon appt. 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 Pt is in pain. PE raulos NV intact b/l UE. Noted TTP of the L upper teeth. Will tx. Discussed tx plan with pt. Discussed and counseled on stable condition. Discussed importance of a f/u with PCP. Discussed return to ER criteria. Answered their questions. Indicates and verbalizes that they understand, agree, and will comply with above. Denies any new questions or concerns. Patient has capacity to understand. Discharge decision based on the following: patient's condition is stable; patient's exam is stable; social support is adequate; transportation is availa ble; follow-up is available. Discussed of OTC Motrin and Tylenol to control inflammation and pain management. Informed to follow directions on bottle that are appropriate for age and/or weight. Disposition: Discharged home in good and improved condition. Condition: good and stable.CLINICAL IMPRESSION Moderate dental pain.INSTRUCTIONS Take Tylenol (Acetaminophen) or Motrin (Ibuprofen) as needed for fever control. Take medication according to label instructions. Drink plenty of fluids. No dietary restrictions. (Recommend to utilize OTC Motrin and Tylenol to control inflammation and pain management. Recommend to follow the instructions on the bottle and not to exceed.). Warnings: Further evaluation is necessary. SEDATIVE MEDICATION: You were given sedative medication during your visit. Do not drive or operate dangerous machinery. GENERAL WARNINGS: Return or contact your physician immediately if your condition worsens or changes unexpectedly, if not improving as expected, or if other problems arise. Your Current Medications: Your current home medications have been reviewed. CONTINUE TAKING THE FOLLOWING MEDICATIONS: Lisinopril Oral : Tablet 40 mg, daily. metFORMIN HCl Oral : 500 mg 2x a day. Omeprazole Oral : 40 mg daily. Paxil Oral : 10 mg daily. 4 Clinical Report - Physicians/Mid Levels [facility] Emergency Department [address] [place] [address] Phone #: ext- [phone] 07/13/2020 12:32 Patient: OWEN FLOYD Sex: F : 1975 Age: 44y Prescription Medications: Augmentin 875 mg-125 mg tablet Take 1 tablet twice a day for 10 days -- Dispense 20 tablet. Refills: 0. Substitution permitted. [facility] [address] [place] [address] [phone]. . Oral Anesthetic 20 % mucosal gel Apply a small amount four times a day for 10 days -- Dispense 1 tube. Refills: 0. Substitution permitted. Note to Pharmacy - Rx Discount Card: 7.62. Use: BIN:[id number], PCN:[id number], Group:[id number], ID:[id number]. [facility] [address] [place] [address] [phone]. . gabapentin 100 mg capsule Take 1 capsule three times a day for 3 days -- Dispense 9 capsule. Refills: 0. Substitution permitted. [facility] [address] [place] [address] [phone]. . Follow-up: Return to the emergency department as needed. Follow up with your healthcare provider in about two days if not better. Call for an appointment. Follow up with a dentist and an oral surgeon. Call for the next available appointment. Understanding of the discharge instructions verbalized by patient.(Electronically signed by Chandler Fuchs P.A.-C 07/14/2020 00:04) Name Value Range Interpretation Code Description Data Soheila rce(s) Supporting Document(s) Procedure Social History Code Duration Value Status Description Data Source(s ) Smoking 08/26/2020 12:00:00 AM EDT Current Smoker completed Curre nt Smoker eCW1 ([facility]) Smoking 08/26/2020 12:00:00 AM EDT Current Smoker completed Curre nt Smoker eCW1 ([facility]) Smoking 08/26/2020 12:00:00 AM EDT Current Smoker completed Curre nt Smoker eCW1 ([facility]) Smoking 08/26/2020 12:00:00 AM EDT Current Smoker completed Curre nt Smoker eCW1 ([facility]) Smoking 02/18/2020 12:00:00 AM EST Current Smoker completed Curre nt Smoker eCW1 ([facility]) Smoking 02/18/2020 12:00:00 AM EST Current Smoker completed Curre nt Smoker eCW1 ([facility]) Smoking 02/18/2020 12:00:00 AM EST Current Smoker completed Curre nt Smoker eCW1 ([facility]) Smoking 02/18/2020 12:00:00 AM EST Current Smoker completed Curre nt Smoker eCW1 ([facility]) Smoking 02/18/2020 12:00:00 AM EST Current Smoker completed Curre nt Smoker eCW1 ([facility]) Smoking 02/18/2020 12:00:00 AM EST Current Smoker completed Curre nt Smoker eCW1 ([facility]) Smoking 12/24/2019 12:00:00 AM EDT Current Smoker completed Curre nt Smoker eCW1 ([facility]) Smoking 12/24/2019 12:00:00 AM EDT Current Smoker completed Curre nt Smoker eCW1 ([facility]) Vital Signs ID Date Data Source UNK Name Value Range Interpretation Code Description Data Source(s) Body weight 177 [lb_av] 177 [lb_av] eCW1 ([facility]) Body height 63 [in_i] 63 [in_i] eCW1 ([facility]) Body mass index (BMI) [Ratio] 31.35 kg/m2 31.35 kg/m2 eCW1 ([facility]) Heart rate 117 /min 117 /min eCW1 ([facility]) Respiratory rate 20 /min 20 /min eCW1 ([facility]) Body temperature 96.5 [degF] 96.5 [degF] eCW1 ( [facility]) Systolic blood pressure 126 mm[Hg] 126 mm[Hg] e CW1 ([facility]) Diastolic blood pressure 82 mm[Hg] 82 mm[Hg] eCW1 ([facility]) Body weight 199 [lb_av] 199 [lb_av] eCW1 ([facility]) Body height 63 [in_i] 63 [in_i] eCW1 ([facility]) Body mass index (BMI) [Ratio] 35.25 kg/m2 35.25 kg/m2 eCW1 ([facility]) Heart rate 96 /min 96 /min eCW1 ([facility]) Respiratory rate 20 /min 20 /min eCW1 ([facility]) Body temperature 96.9 [degF] 96.9 [degF] eCW1 ( [facility]) Systolic blood pressure 152 mm[Hg] 152 mm[Hg] e CW1 ([facility]) Diastolic blood pressure 98 mm[Hg] 98 mm[Hg] eCW1 ([facility]) Body weight 204.0 [lb_av] 204.0 [lb_av] eCW1 ([facility]) Body height 63 [in_i] 63 [in_i] eCW1 ([facility]) Body mass index (BMI) [Ratio] 36.13 kg/m2 36.13 kg/m2 eCW1 ([facility]) Systolic blood pressure 128 mm[Hg] 128 mm[Hg] e CW1 ([facility]) Diastolic blood pressure 78 mm[Hg] 78 mm[Hg] eCW1 ([facility]) Patient Treatment Plan of Care Planned Activity Planned Date Details Description Data Source (s) Citalopram 20 MG Oral Tablet [Celexa] 09/13/2020 12:00:00 AM EDT eCW1 ([facility]) gabapentin 300 MG Oral Capsule 09/13/2020 12:00:00 AM EDT eCW1 ([facility]) Citalopram 20 MG Oral Tablet [Celexa] 09/13/2020 12:00:00 AM EDT eCW1 ([facility]) gabapentin 300 MG Oral Capsule 09/13/2020 12:00:00 AM EDT eCW1 ([facility]) Citalopram 20 MG Oral Tablet [Celexa] 09/13/2020 12:00:00 AM EDT eCW1 ([facility]) gabapentin 300 MG Oral Capsule 09/13/2020 12:00:00 AM EDT eCW1 ([facility]) Clindamycin 300 MG Oral Capsule 08/26/2020 12:00:00 AM EDT eCW1 ([facility]) Clindamycin 300 MG Oral Capsule 08/26/2020 12:00:00 AM EDT eCW1 ([facility]) Clindamycin 300 MG Oral Capsule 08/26/2020 12:00:00 AM EDT eCW1 ([facility]) Clindamycin 300 MG Oral Capsule 08/26/2020 12:00:00 AM EDT eCW1 ([facility]) Metformin hydrochloride 500 MG Oral Tablet 02/18/2020 12:00:[address] eCW1 ([facility]) Lisinopril 10 MG Oral Tablet 02/18/2020 12:00:00 AM EST eCW1 ([facility]) Paroxetine 20 MG Oral Tablet [Paxil] 02/18/2020 12:00:00 AM EST eCW1 ([facility]) Omeprazole 40 MG Delayed Release Oral Capsule 02/18/2020 12:00:00 A M EST eCW1 ([facility]) Metformin hydrochloride 500 MG Oral Tablet 02/18/2020 12:00:[address] eCW1 ([facility]) Lisinopril 10 MG Oral Tablet 02/18/2020 12:00:00 AM EST eCW1 ([facility]) Paroxetine 20 MG Oral Tablet [Paxil] 02/18/2020 12:00:00 AM EST eCW1 ([facility]) Omeprazole 40 MG Delayed Release Oral Capsule 02/18/2020 12:00:00 A M EST eCW1 ([facility]) Metformin hydrochloride 500 MG Oral Tablet 02/18/2020 12:00:[address] eCW1 ([facility]) Omeprazole 40 MG Delayed Release Oral Capsule 02/18/2020 12:00:00 A M EST eCW1 ([facility]) Paroxetine 20 MG Oral Tablet [Paxil] 02/18/2020 12:00:00 AM EST eCW1 ([facility]) Lisinopril 10 MG Oral Tablet 02/18/2020 12:00:00 AM EST eCW1 ([facility]) Metformin hydrochloride 500 MG Oral Tablet 02/18/2020 12:00:[address] eCW1 ([facility]) Lisinopril 10 MG Oral Tablet 02/18/2020 12:00:00 AM EST eCW1 ([facility]) Paroxetine 20 MG Oral Tablet [Paxil] 02/18/2020 12:00:00 AM EST eCW1 ([facility]) Omeprazole 40 MG Delayed Release Oral Capsule 02/18/2020 12:00:00 A M EST eCW1 ([facility]) Metformin hydrochloride 500 MG Oral Tablet 02/18/2020 12:00:[address] eCW1 ([facility]) Lisinopril 10 MG Oral Tablet 02/18/2020 12:00:00 AM EST eCW1 ([facility]) Paroxetine 20 MG Oral Tablet [Paxil] 02/18/2020 12:00:00 AM EST eCW1 ([facility]) Omeprazole 40 MG Delayed Release Oral Capsule 02/18/2020 12:00:00 A M EST eCW1 ([facility]) Metformin hydrochloride 500 MG Oral Tablet 02/18/2020 12:00:[address] eCW1 ([facility]) Lisinopril 10 MG Oral Tablet 02/18/2020 12:00:00 AM EST eCW1 ([facility]) Paroxetine 20 MG Oral Tablet [Paxil] 02/18/2020 12:00:00 AM EST eCW1 ([facility]) Omeprazole 40 MG Delayed Release Oral Capsule 02/18/2020 12:00:00 A M ROMINA Cuellar1 ([facility])
--- OUTSIDE RECORDS SUMMARY | 2021-01-07 17:18 | CCD ---
Author Author [facility] Organization [facility] Address Unknown Phone Unavailable Care Team Providers Care Nurse Unit Manager Name Role Phone NO, PCP Unavailable Unavailable Hospital Lab, Area Kaycee Unavailable Unavailable TURRIN, IFRAH Unavailable Unavailable TURRIN, [...] is protected by Article 27-F of the [facility] Public Health law. If you continue you may have access to information: Regarding HIV / AIDS; Provided by facilities licensed or operated by the [facility] Office of Mental Health; or Provided by the [facility] Office for People With Developmental Disabilities. If such information is present, then the following [facility] mandated warning applies: This information has been [...] law may result in a fine or prison sentence or both. A general authorization for the release of medical or other information is NOT sufficient authorization for further disc losure. Allergies and Adverse Reactions Type Description Substance Reaction Status Data Source(s ) No Known Environmental Allergies No Known Environmental Al lergies [facility] No Known Food Allergies No Known Food Allergies [facility] Drug allergy IBUPROFEN I[facility]OF[facility] Drug allergy ASPIRIN ASPIRIN HIVES [facility] Family History Family Member Name Family Member Gender Family Member Status Date o f Status Description Data Source(s) Unknown Male Problem MEDENT ([facility]) Unknown Unknown Problem [facility] ([facility]) Unknown Unknown Problem [facility] ([facility]) Unknown Unknown Problem [facility] ([facility]) Encounters Encounter Providers Location Date Indications Data Source(s ) Unknown [address] [facility] [address] 09/22/2020 12:00:00 AM EDT [facility]) [place] [address] [facility] [place] [address] 09/12/2020 12:00:00 AM EDT [facility]CW1 ([facility]) Unknown [address] [facility] [address] 08/29/2020 12:00:00 AM EDT eCW1 ([facility]) Outpatient [address] [facility] [place] [address] 08/26/2020 12:00:00 AM EDT eCW1 ([facility] Unknown [address] [facility] [address] 08/22/2020 12:00:00 AM EDT [facility]CW1 ([facility]) Out[facility] Attender: [facility] 08/14/2020 12:5 0:00 PM EDT [facility] Emergency Attender: BARB FERRELL MDConsultant: PCP NO 08/14/2020 12:26:00 PM EDT - 08/14/2020 04:31:00 PM EDT [facility] Patient discharged. Unknown [address] [facility] [address] 08/09/2020 12:00:00 AM EDT [facility]CW[facility]) Outpatient Attender: [facility] 06/2020 03:20:00 PM EDT [facility]) Outpatient Attender: ALEC SIMON PAConsultant: PCP NO 08/05/2020 02:53:00 PM EDT - 08/05/2020 02:53:00 PM EDT [facility] [address] [facility] [address] 08/05/2020 12:00:00 AM EDT eCW1 ([facility]) Emergency Attender: IFRAH HERNANDEZConsultant: PCP NO 07/13/2020 12:33:00 PM EDT - 07/13/2020 02:47:00 PM EDT [facility] Patient discharged. Unknown [address] [facility] [address] 07/05/2020 12:00:00 AM EDT [facility] [place] [address] [facility] [address] 03/10/2020 12:00:00 AM EST [facility]CW1 ([facility]) Outpatient [address] [facility] [address] 02/18/2020 12:00:00 AM EST [facility]CW1 ([facility]) Unknown [address] [facility] [address] 12/29/2019 12:00:00 AM EDT eCW1 ([facility]) Outpatient [address] [facility] [address] 12/24/2019 12:00:00 AM EDT eCW1 ([facility]) Medications Medication Brand Name Start Date Product Form Dose Route Admi nistrative Instructions Pharmacy Instructions Status Indications Reaction Description Data Source(s) Citalopram 20 MG Oral Tablet [Celexa] CeleXA 20 MG CeleXA 20 MG 09/13/2020 12:00:00 AM EDT 1.0 {tablet} active Ce Yoko 20 MG eCW1 ([facility]) Citalopram 20 MG Oral Tablet [Celexa] CeleXA 20 MG CeleXA 20 MG 09/13/2020 12:00:00 AM EDT 1.0 {tablet} active Ce Yoko 20 MG eCW1 ([facility]) Citalopram 20 MG Oral Tablet [Celexa] CeleXA 20 MG CeleXA 20 MG 09/13/2020 12:00:00 AM EDT 1.0 {tablet} active Ce Yoko 20 MG eCW1 ([facility]) gabapentin 300 MG Oral Capsule Gabapentin 300 MG Gabapentin 300 MG 09/13/2020 12:00:00 AM EDT 1.0 {capsule} active G abapentin 300 MG eCW1 ([facility]) gabapentin 300 MG Oral Capsule Gabapentin 300 MG Gabapentin 300 MG 09/13/2020 12:00:00 AM EDT 1.0 {capsule} active G abapentin 300 MG eCW1 ([facility]) gabapentin 300 MG Oral Capsule Gabapentin 300 MG Gabapentin 300 MG 09/13/2020 12:00:00 AM EDT 1.0 {capsule} active G abapentin 300 MG eCW1 ([facility]) Clindamycin 300 MG Oral Capsule Clindamycin HCl 300 MG Clind amycin HCl 300 MG 08/26/2020 12:00:00 AM EDT active Clindamycin HCl 300 MG eCW1 ([facility]) Clindamycin 300 MG Oral Capsule Clindamycin HCl 300 MG Clind amycin HCl 300 MG 08/26/2020 12:00:00 AM EDT active Clindamycin HCl 300 MG eCW1 ([facility]) Clindamycin 300 MG Oral Capsule Clindamycin HCl 300 MG Clind amycin HCl 300 MG 08/26/2020 12:00:00 AM EDT active Clindamycin HCl 300 MG eCW1 ([facility]) Clindamycin 300 MG Oral Capsule Clindamycin HCl 300 MG Clind amycin HCl 300 MG 08/26/2020 12:00:00 AM EDT active Clindamycin HCl 300 MG eCW1 ([facility]) Paroxetine 20 MG Oral Tablet [Paxil] Paxil 20 MG Paxil 20 MG 02/18/2020 12:00:00 AM EST 1.0 {tablet_in_the_morning} active Paxil 20 MG eCW1 ([facility]) Lisinopril 10 MG Oral Tablet Lisinopril 10 MG 02/18/2020 12:00:00 A M EST 1.0 {tablet} active Lisinopril 10 MG eCW1 ( [facility]) Paroxetine 20 MG Oral Tablet [Paxil] Paxil 20 MG Paxil 20 MG 02/18/2020 12:00:00 AM EST 1.0 {tablet_in_the_morning} active Paxil 20 MG eCW1 ([facility]) Metformin hydrochloride 500 MG Oral Tablet metFORMIN H Cl 500 MG metFORMIN HCl 500 MG 02/18/2020 12:00:00 AM EST 1.0 {tablet_with_a_meal} active metFORMIN HCl 500 MG eCW1 ([facility]) Lisinopril 10 MG Oral Tablet Lisinopril 10 MG 02/18/2020 12:00:00 A M EST 1.0 {tablet} active Lisinopril 10 MG eCW1 ( [facility]) Lisinopril 10 MG Oral Tablet Lisinopril 10 MG 02/18/2020 12:00:00 A M EST 1.0 {tablet} active Lisinopril 10 MG eCW1 ( [facility]) Paroxetine 20 MG Oral Tablet [Paxil] Paxil 20 MG Paxil 20 MG 02/18/2020 12:00:00 AM EST 1.0 {tablet_in_the_morning} suspended Paxil 20 MG eCW1 ([facility]) Omeprazole 40 MG Delayed Release Oral Capsule Omeprazole 40 MG 02/18/2020 12:00:00 AM EST active Omeprazo le 40 MG eCW1 ([facility]) Lisinopril 10 MG Oral Tablet Lisinopril 10 MG 02/18/2020 12:00:00 A M EST 1.0 {tablet} active Lisinopril 10 MG eCW1 ( [facility]) Omeprazole 40 MG Delayed Release Oral Capsule Omeprazole 40 MG 02/18/2020 12:00:00 AM EST active Omeprazo le 40 MG eCW1 ([facility]) Lisinopril 10 MG Oral Tablet Lisinopril 10 MG 02/18/2020 12:00:00 A M EST 1.0 {tablet} active Lisinopril 10 MG eCW1 ( [facility]) Lisinopril 10 MG Oral Tablet Lisinopril 10 MG 02/18/2020 12:00:00 A M EST 1.0 {tablet} active Lisinopril 10 MG eCW1 ( [facility]) Metformin hydrochloride 500 MG Oral Tablet metFORMIN H Cl 500 MG metFORMIN HCl 500 MG 02/18/2020 12:00:00 AM EST 1.0 {tablet_with_a_meal} active metFORMIN HCl 500 MG eCW1 ([facility]) Metformin hydrochloride 500 MG Oral Tablet metFORMIN H Cl 500 MG metFORMIN HCl 500 MG 02/18/2020 12:00:00 AM EST 1.0 {tablet_with_a_meal} active metFORMIN HCl 500 MG eCW1 ([facility]) Omeprazole 40 MG Delayed Release Oral Capsule Omeprazole 40 MG 02/18/2020 12:00:00 AM EST active Omeprazo le 40 MG eCW1 ([facility]) Paroxetine 20 MG Oral Tablet [Paxil] Paxil 20 MG Paxil 20 MG 02/18/2020 12:00:00 AM EST 1.0 {tablet_in_the_morning} active Paxil 20 MG eCW1 ([facility]) Metformin hydrochloride 500 MG Oral Tablet Metformin H Cl 500 MG Metformin HCl 500 MG 02/18/2020 12:00:00 AM EST 1.0 {tablet_with_a_meal} active Metformin HCl 500 MG eCW1 ([facility]) Paroxetine 20 MG Oral Tablet [Paxil] Paxil 20 MG Paxil 20 MG 02/18/2020 12:00:00 AM EST 1.0 {tablet_in_the_morning} active Paxil 20 MG eCW1 ([facility]) Paroxetine 20 MG Oral Tablet [Paxil] Paxil 20 MG Paxil 20 MG 02/18/2020 12:00:00 AM EST 1.0 {tablet_in_the_morning} suspended Paxil 20 MG eCW1 ([facility]) Metformin hydrochloride 500 MG Oral Tablet metFORMIN H Cl 500 MG metFORMIN HCl 500 MG 02/18/2020 12:00:00 AM EST 1.0 {tablet_with_a_meal} active metFORMIN HCl 500 MG eCW1 ([facility]) Omeprazole 40 MG Delayed Release Oral Capsule Omeprazole 40 MG 02/18/2020 12:00:00 AM EST active Omeprazo le 40 MG eCW1 ([facility]) Paroxetine 20 MG Oral Tablet [Paxil] Paxil 20 MG Paxil 20 MG 02/18/2020 12:00:00 AM EST 1.0 {tablet_in_the_morning} suspended Paxil 20 MG eCW1 ([facility]) Lisinopril 10 MG Oral Tablet Lisinopril 10 MG 02/18/2020 12:00:00 A M EST 1.0 {tablet} active Lisinopril 10 MG eCW1 ( [facility]) Paroxetine 20 MG Oral Tablet [Paxil] Paxil 20 MG Paxil 20 MG 02/18/2020 12:00:00 AM EST 1.0 {tablet_in_the_morning} suspended Paxil 20 MG eCW1 ([facility]) Lisinopril 10 MG Oral Tablet Lisinopril 10 MG 02/18/2020 12:00:00 A M EST 1.0 {tablet} active Lisinopril 10 MG eCW1 ( [facility]) Omeprazole 40 MG Delayed Release Oral Capsule Omeprazole 40 MG 02/18/2020 12:00:00 AM EST active Omeprazo le 40 MG eCW1 ([facility]) Lisinopril 10 MG Oral Tablet Lisinopril 10 MG 02/18/2020 12:00:00 A M EST 1.0 {tablet} active Lisinopril 10 MG eCW1 ( [facility]) Omeprazole 40 MG Delayed Release Oral Capsule Omeprazole 40 MG 02/18/2020 12:00:00 AM EST active Omeprazo le 40 MG eCW1 ([facility]) Paroxetine 20 MG Oral Tablet [Paxil] Paxil 20 MG Paxil 20 MG 02/18/2020 12:00:00 AM EST 1.0 {tablet_in_the_morning} active Paxil 20 MG eCW1 ([facility]) Metformin hydrochloride 500 MG Oral Tablet metFORMIN H Cl 500 MG metFORMIN HCl 500 MG 02/18/2020 12:00:00 AM EST 1.0 {tablet_with_a_meal} active metFORMIN HCl 500 MG eCW1 ([facility]) Omeprazole 40 MG Delayed Release Oral Capsule Omeprazole 40 MG 02/18/2020 12:00:00 AM EST active Omeprazo le 40 MG eCW1 ([facility]) Omeprazole 40 MG Delayed Release Oral Capsule Omeprazole 40 MG 02/18/2020 12:00:00 AM EST active Omeprazo le 40 MG eCW1 ([facility]) Metformin hydrochloride 500 MG Oral Tablet Metformin H Cl 500 MG Metformin HCl 500 MG 02/18/2020 12:00:00 AM EST 1.0 {tablet_with_a_meal} active Metformin HCl 500 MG eCW1 ([facility]) Metformin hydrochloride 500 MG Oral Tablet metFORMIN H Cl 500 MG metFORMIN HCl 500 MG 02/18/2020 12:00:00 AM EST 1.0 {tablet_with_a_meal} active metFORMIN HCl 500 MG eCW1 ([facility]) Omeprazole 40 MG Delayed Release Oral Capsule Omeprazole 40 MG 02/18/2020 12:00:00 AM EST active Omeprazo le 40 MG eCW1 ([facility]) Metformin hydrochloride 500 MG Oral Tablet Metformin H Cl 500 MG Metformin HCl 500 MG 02/18/2020 12:00:00 AM EST 1.0 {tablet_with_a_meal} active Metformin HCl 500 MG eCW1 ([facility]) Omeprazole 40 MG Delayed Release Oral Capsule Omeprazole 40 MG 02/18/2020 12:00:00 AM EST active Omeprazo le 40 MG eCW1 ([facility]) Lisinopril 10 MG Oral Tablet Lisinopril 10 MG 02/18/2020 12:00:00 A M EST 1.0 {tablet} active Lisinopril 10 MG eCW1 ( [facility]) Paroxetine 20 MG Oral Tablet [Paxil] Paxil 20 MG Paxil 20 MG 02/18/2020 12:00:00 AM EST 1.0 {tablet_in_the_morning} active Paxil 20 MG eCW1 ([facility]) Metformin hydrochloride 500 MG Oral Tablet Metformin H Cl 500 MG Metformin HCl 500 MG 02/18/2020 12:00:00 AM EST 1.0 {tablet_with_a_meal} active Metformin HCl 500 MG eCW1 ([facility]) Insurance Providers Payer name Policy type / Coverage type Policy ID Covered alliance party ID Covered alliance party's relationship to chin Policy Chin Plan Information Managed Care - Community Plan [facility] P [id number] S [id number] MEDICAID M [id number] Self [id number] [facility] I [id number] Self [id number] [facility] I [id number] Self [id number] Medicaid S [id number] S [id number] Managed Care - Community Plan [facility] S [id number] S [id number] Managed Care - [facility] Community Plan P [id number] S [id number] Managed Care - Community Plan [facility] P [id number] S [id number] Medicaid S [id number] [facility] [id number] [facility] XIX -O [id number] 18 [id number] [place] [id number] Self [id number] [place] [facility] MC [id number] 18 A [id number] [facility] [id number] Self [facility] Commercial [id number] Self MEDICAID - CLINIC [id number] 18 [id number] [facility](MCAID) O [id number] S [id number] [employer] COMM[employer]ITY PLAN MCDHMO [id number] SP [id number] MEDICAID [id number] SP [id number] MEDICAID [id number] SP [id number] [facility] Plan[facility] Commercial [id number] Self Self Pay S [id number] S [id number] Managed Care BCBS O [id number] S [id number] Self Pay O none S none [employer] PLAN [id number] SP [id number] [employer] BCBS P [id number] S [id number] MEDICAID P [id number] S [id number] [facility] MCDO [id number] SP [id number] O BLUE [id number] SP [id number] [facility] PL[facility] XIX [id number] 18 [id number] [facility] PL[facility] XIX [id number] 18 [id number] [facility] EMPIR PLAN [id number] 18 [id number] [facility] [id number] S [id number] [facility] Health Individual Policy 0 [id number] S elf 0 MEDICAID -O/P EMERGENCY ROOM [id number] [facility] Health Individual Policy 0 [id number] S elf 0 [facility] Health Individual Policy 0 [id number] S elf 0 [facility](MCAID) O [id number] S [id number] Problems, Conditions, and Diagnoses Code Display Name Description Problem Type Effective Dates Data Source(s) Z872 Personal history of diseases of the skin and subcutaneous tissue Personal history of diseases of the skin and subcutaneous tissue Diagnosis 08/14/2020 12:26:00 PM EDT [facility] Z7984 senior care (current) use of oral hypoglyc emic drugs senior care (current) use of oral hypoglycemic drugs Diagnosis 08/14/2020 12:26:[address] [facility] Z5320 Procedure and treatment not carried out because of patient's decision for unspecified reasons Procedure and treatment not carried out because of patient's decision for unspecified reasons Diagnosis [facility]/14[facility]2020 [facility] Type 2 diabetes mellitus with diabetic n europathy, unspecified Type 2 diabetes mellitus with diabetic neuropathy, unspecified Diagnosis 08/14/2020 12:26:00 PM EDT [facility] I252 Old myocardial infarction Old myocardial infarction Di agnosis 08/14/2020 12:26:00 PM EDT [facility] E1165 Type 2 diabetes mellitus with hyperglyce kimmie Type 2 diabetes mellitus with hyperglycemia Diagnosis 08/14/2020 12:26:00 PM EDT [facility] Y19563 Cellulitis of abdominal wall Cellulitis of abdominal w all Diagnosis 08/14/2020 12:26:00 PM EDT [facility] B33006 Nicotine dependence, cigarettes, uncompl icated Nicotine dependence, cigarettes, uncomplicated Diagnosis 07/13/2020 12:33:00 PM EDT [facility] E119 Type 2 diabetes mellitus without complic ations Type 2 diabetes mellitus without complications Diagnosis 07/13/2020 12:33:00 PM EDT [facility] K0889 Other specified disorders of teeth and s upporting structures Other specified disorders of teeth and supporting structures Diagnosis 07/13/2020 12:33:00 PM EDT [facility] 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210 77921897 Nicotine dependence, cigarettes, uncompli cated Problem 02/18/2020 12:00:00 AM EST eCW1 ([facility]) K21.9 [id number] GERD without esophagitis Problem 02/18/2020 12:00:00 AM EST eCW1 ([facility]) E11.9 [id number] Type 2 diabetes dee dee itus without complication, without long-term current use of insulin Problem 02/18/2020 12:00:00 AM EST eCW1 ([facility]) I11.9 76344157 Hypertensive heart disease without heart failure Problem 02/18/2020 12:00:00 AM EST eCW1 ([facility]) F43.10 31872902 PTSD (post-traumatic stress disorder) Pro blem 02/18/2020 12:00:00 AM EST eCW1 ([facility]) Surgeries/Procedures No Information Results ID Date Data Source [id number] 08/15/2020 12:02:00 PM EDT [facility] [address] [place] [address] PHONE: [phone] FAX: [phone] Name .................. : MARIELSYLVIE WEAVER Alivia Acct Number.................. : [id number] ROOM. ................. : VT-04 MR Number ................... : [id number] Stay type ............. : E/R Discharge Date......... ... : 08/14/20 Admit Date ......... : 08/14/20 Admit Phys .................... : MARIAELENA Date of ....... : 1975 Family Phys ................... : NO PCP Phone .................. : [phone] Age ................................ : 45 Film# .................. .:[id number] Sex ................................. : F Unsigned transcriptions are preliminary reports and do not represent a medical or legal document CT ABD & PELVIS W/ IV ONLY [id number] COMPLETE:08/14/20 16:36 NIESHA 87696 Reason(s): evaluate abdominal wall abscess RLQ area [...] abdominal aortic aneurysm. [address] 1 of 3 [place] [address] PHONE: [phone] FAX: [phone] Name .................. : MARIEL Bunch Acct Number.................. : [id number] ROOM. ................. : VT-04 MR Number ................... : [id number] Stay type ............. : E/R Discharge Date......... ... : 08/14/20 Admit Date ......... : 08/14/20 Admit Phys .................... : MARIAELENA Date of ....... : 1975 Family Phys ................... : NO PCP Phone .................. : [phone] Age ................................ : 45 Film# .................. .:[id number] Sex ................................. : F Unsigned transcriptions are preliminary reports and do not represent a medical or legal document CT ABD & PELVIS W/ IV ONLY [id number] COMPLETE:08/14/20 16:36 NIESHA 16070 Reason(s): evaluate abdominal wall abscess RLQ area [...] , 08/15/20 12:02, EUNICE [address] [place] [address] [address] [place] [address] PHONE: [phone] FAX: [phone] Name .................. : MARIEL Bunch Acct Number.................. : [id number] ROOM. ................. : VT- MR Number ................... : [id number] Stay type ............. : E/R Discharge Date......... ... : 08/14/20 Admit Date ......... : 08/14/20 Admit Phys .................... : AMACO Date of ....... : 1975 Family Phys ................... : NO PCP Phone .................. : [phone] Age ................................ : 45 Film# .................. .:[id number] Sex ................................. : F Unsigned transcriptions are preliminary reports and do not represent a medical or legal document CT ABD & PELVIS W/ IV ONLY [id number] COMPLETE:08/14/20 16:36 NIESHA 94307 Reason(s): evaluate abdominal wall abscess RLQ area Transcribe Initials: ANIRUDH Transcribe Date: 08/14/20 21:41, Dictation Date: Copy for: EMERGENCY DEPT via mode Copy for: 710 MED REC DISCHARGED Page 3 of 3 Name Value Range Interpretation Code Description Data Soheila rce(s) Supporting Document(s) ID Date Data Source [id number] 08/14/2020 12:26:00 PM EDT [facility] 1 OrderSheet [facility] Emergency Department [address] [place] [address] Phone #: [phone] 08/14/2020 12:27 Patient: OWEN FLOYD Sex: F [...] STAT 13:08 08/14/2020 14:39 [place], 2 OrderSheet [facility] Emergency Department [address] [place] [address] Phone #: ext- [phone] 08/02 12:27 Patient: [...] rce(s) Supporting Document(s) ID Date Data Source [id number] 08/14/2020 12:26:00 PM EDT [facility] 1 Medication Reconciliation Report [facility] Emergency Department [address] [place] [address] Phone #: [phone] 08/14/2020 12:27 Patient: OWEN FLOYD Sex: F [...] Dispense 40 capsule.Refills: 0. Substitution permitted.Pharmacy - [facility] [address] [place], [place] [id number]. . -- BrizofiaBarb Name Value Range Interpretation Code Description Data Soheila rce(s) Supporting Document(s) ID Date Data Source [id number] 08/14/2020 12:26:00 PM EDT [facility] 1 Medication Administration Record [facility] Emergency Department [address] [place] [address] Phone #: [phone] 08/14/2020 12:27 Patient: OWEN FLOYD Sex: F : 1975 Age: 45yWeight: 86.1 kgHeight/Length: 63 inBMI: 33.6ALLERGIES: Aspirin Date/Time Medication Administered Medication OrderedStart ofirmev * Ofirmev IV 1000 mg (NOW x1,13:08 08/14/2020 Dose: 1000 mg * IVPB Infuse over 15 minutes)Ene Bender R.N.----Stop14:19 08/14/2020Ene Bender R.N.Start NS [IV] NS IV : Bolus 1000 mL, then 94176:08/14/2020 Dose: IV Fluids mL/hrEne Bender RGianniNGianni Bolus: [...] rce(s) Supporting Document(s) ID Date Data Source [id number] 08/14/2020 12:26:00 PM EDT [facility] 1 General Instructions [facility] Emergency Department [address] [place] [address] Phone #: ext- [phone] 08/14/2020 12:27 Patient: [...] Dispense 40 capsule.Refills: 0. Substitution permitted.Pharmacy - [facility] [address] [facility] ; [place], [place] [id number]. .Follow-up:Follow up with your healthcare provider tomorrow. [...] provided to the patient. 2 General Instructions [facility] Emergency Department [address] [place] [address] Phone #: ext- [phone] 08/14/2020 12:27 Patient: OWEN FLOYD Sex: F : 1975 Age: 45y(Electronically signed by Barb Ferrell 08/15/2020 02:28) Name Value Range Interpretation Code Description Data Soheila rce(s) Supporting Document(s) ID Date Data Source [id number] 08/14/2020 12:26:00 PM EDT [facility] 1 Clinical Report - Nurses [facility] Emergency Department [address] [place] [address] Phone #: ext [phone] 08/14/2020 12:27 Patient: OWEN FLOYD Sex: F [...] and had a fever last 2 daysago.).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 SEPSIS SCREEN NEGATIVE. [...] testing but 2 Clinical Report - Nurses [facility] [facility] [address] [place] [address] Phone #: ext- [phone] 08/14/2020 12:27 Patient: OWEN FLOYD Sex: F [...] angiocath, with aseptic 3 Clinical Report - [facility] Emergency Department [address] [place] [address] Phone #: ext- [phone] 08/14/2020 12:27 Patient: OWEN FLOYD Sex: F [...] shown to the ED physician. --13:16 08/14/20 Ene Bender R.N. 13:57 08/14/20. BP: 143/85. MAP: 104. HR: 71. RR: 18. O2 saturation: 100%. --13:57 08/14/20 [facility] Tech1 13:44 08/14/20. Patient waiting for lab [...] RR: 16. O2 saturation: 98%. --15:24 08/14/20 [facility] Tech1.DISPOSITION / DISCHARGE 16:30 08/14/2020 Site #1 [...] advice; patient 4 Clinical Report - Nurses [facility] Emergency Department [address] [place] [address] Phone #: ext- [phone] 08/14/2020 12:27 Patient: [...] rce(s) Supporting Document(s) ID Date Data Source [id number] 08/14/2020 12:26:00 PM EDT [facility] 1 Clinical Report - Physicians/Mid Levels [facility] Emergency Department [address] [place] [address] Phone #: ext- [phone] 08/14/2020 12:27 Patient: OWEN FLOYD Sex: F : 1975 Age: 45y Time Seen: 12:43 08/14/2020; initial patient contact, initial documentation. Arrived- By private vehicle. Historian- patient. Disposition decision: 15:44 08/14/2020.HISTORY OF PRESENT ILLNESS Chief Complaint: BOIL and TENDER AREA. 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 It [...] Infarction. 2 Clinical Report - Physicians/Mid Levels [facility] E mergency Department [address] [place] [address] Phone #: ext- [phone] 08/14/2020 12:27 Patient: OWEN FLOYD Sex: F [...] Tests: 3 Clinical Report - Physicians/Mid Levels [facility] Emergency Department [address] [place] [address] Phone #: ext- [phone] 08/14/2020 12:27 Patient: OWEN FLOYD Sex: F : 1975 Age: 45yCulture MRSA: (SANGITA: 08/14/2020 12:58) ( AlgRcvd 08/14/2020 13:22) CanceledCBC w Diff: (SANGITA: 08/14/2020 12:50) ( AlgRcvd 08/14/2020 13:48) Final results Test Result Flag [...] 1.3) 4 Clinical Report - Physicians/Mid Levels [facility] Emergency Department [address] [place] [address] Phone #: ext- [phone] 08/14/2020 12:27 Patient: [...] Normal Lactic Acid: (SANGITA: 08/14/2020 12:50) ( [facility] 08/14/2020 13:34) Final results Test Result Flag Units (Reference) LACTIC ACID 1.9 MMOL/L (0.2 - 2.2) PT/INR: (SANGITA: 08/14/2020 12:43) ( MsgRcvd 08/14/2020 13:14) Canceled PT/PTT: (SANGITA: 08/14/2020 12:50) ( [facility] 08/14/2020 13:34) Final resu lts Test Result Flag Units (Reference) PROTIME 11.9 SECONDS (11.0 - 15.5) INR 0.87 L (0.93 - 1.23) PTT 26.9 SECONDS (24.8 - 36.7) \\BLDo\\INR INTERPRETATION\\BLDx\\ Therapeutic range for Coumadin and related oral anticoagulants. -International Normalized Ratio (INR): 2.0 - 3.0 for Venous Thrombosis, Pulmonary Embolus, Tissue heart valves, Acute AR Atrial Fibrillation, Valvular heart disease and recurrent [...] consultation 5 Clinical Report - Physicians/Mid Levels [facility] Emergency Department [address] [place] [address] Phone #: ext- [phone] 08/14/2020 12:27 [id number] : 1975 Age: 45y regarding [...] capsule. Refills: 0. Substitution permitted. Pharmacy - [facility] - [address] [place] [address] ; [place], [place] [id number]. . Follow-up: Follow up with your healthcare [...] acknowledged 6 Clinical Report - Physicians/Mid Levels [facility] Emergency Department [address] [place] [address] Phone #: ext- [phone] 08/14/2020 12:27 Patient: OWEN FLOYD Sex: F : 1975 Age: 45y are , permanent mental impairment, loss of sexual function and loss of current lifestyle. Discharge instructions were provided to the patient.(Electronically signed by Barb Ferrell 08/15/2020 02:28) Name Value Range Interpretation Code Description Data Soheila rce(s) Supporting Document(s) ID Date Data Source [id number] 08/14/2020 12:26:00 PM EDT [facility] Addenda for OWEN FLOYD VisitID: [id number] Date: 15:53MED REC FAXED WITH OVER VIEW @15:50(Electronically signed by Jason Heaton 08/14/2020 15:53) Name Value Range Interpretation Code Description Data Soheila rce(s) Supporting Document(s) ID Date Data Source [id number] 08/20/2020 06:47:00 AM EDT [facility] Name Value Range Interpretation Code Description Data Soheila rce(s) Supporting Document(s) Bacteria identified in Blood by Culture [facility] NO GROWTH AFTER 5 DAYS ID Date Data Source [id number] 08/27/2020 06:52:00 AM EDT [facility] Name Value Range Interpretation Code Description Data Soheila rce(s) Supporting Document(s) CULTURE BLOOD [facility] _CULTURE BLOOD_ [place] [address] IA# [id number] SEE SCANNED REPORT{ PRELIM ID Date Data Source [id number] 08/18/2020 06:51:00 AM EDT [facility] Name Value Range Interpretation Code Description Data Soheila rce(s) Supporting Document(s) CULTURE WOUND [facility] _CULTURE WOUND_$$[id number]$$[id number] DATE/TIME: 08/17/2020 15:06Culture: CULTURE WOUND Status: FinalIsolate [...] group B Flag: AP1 Test performed by: [employer] [facility] VOGT #: [id number] [address] [id number] [facility] [id number] -- Continued on next page --Patient: MARIEL Bunch Order: [id number] Page 2Culture: CULTURE WOUND Status: Final ====Incubator Operator : Nick Whaley MD NPI #:Medical Equipment Repair Technician : 08/18/[id number] REF ID Date Data Source [id number] 08/21/2020 06:42:00 AM EDT [facility] Name Value Range Interpretation Code Description Data Soheila rce(s) Supporting Document(s) CULTURE BLOOD [facility] spital _CULTURE BLOOD_ [place] [address] CLIA# [id number] SEE SCANNED REPORT{ PRELIM ID Date Data Source [id number] 08/14/2020 01:48:00 PM EDT [facility] Name Value Range Interpretation Code Description Data Soheila rce(s) Supporting Document(s) CBC W/AUTOMATED DIFF [facility] COMPLETE BLOOD COUNT Leukocytes [#/volume] in Blood by Automated count 11.8 10^3/uL 4.2 - 11.0 H [facility] Erythrocytes [#/volume] in Blood by Automated count 4.83 10^6/uL 4. 20 - 5.40 [facility] Hemoglobin [Mass/volume] in Blood 14.5 g/dL 12.0 - 16.0 [facility] Hematocrit [Volume Fraction] of Blood by Automated count 42.2 % 3 7.0 - 47.0 [facility] Erythrocyte mean corpuscular volume [Entitic volume] by Auto mated count 87.4 fL 81.0 - 101 [facility] Erythrocyte mean corpuscular hemoglobin [Entitic mass] by Automated count 30.0 pg 27.0 - 34.0 [facility] Erythrocyte mean corpuscular hemoglobin concentration [Mass/volume] by Automated count 34.4 g/dL 31.0 - 36.0 [facility] Erythrocyte distribution width [Ratio] by Automated count 11.6 % 11.5 - 14.5 [facility] Platelets [#/volume] in Blood by Automated count 372 10^3/uL 150 - 45 0 [facility] Platelet mean volume [Entitic volume] in Blood by Automated count 9.8 fL 7.4 - 10.4 [facility] Neutrophils/100 leukocytes in Blood by Automated count 52.6 % 37. 0 - 80.0 [facility] Lymphocytes/100 leukocytes in Blood by Manual count 37.8 % 25.0 - 40.0 [facility] Monocytes/100 leukocytes in Blood by Automated count 7.3 % 3.0 - 8.0 [facility] Eosinophils/100 leukocytes in Blood by Automated count 1.8 % 0.0 - 7.0 [facility] 0.3 %IG 0.2 % 0.0 - 0.0 H [facility] al %NRBC 0.0 % 0.0 - 0.0 [facility] al Neutrophils [#/volume] in Blood by Automated count 6.24 10^3/uL 2.00 - 6.90 [facility] Lymphocytes [#/volume] in Blood by Automated count 4.47 10^3/uL 0.60 - 3.40 H [facility] Monocytes [#/volume] in Blood by Automated count 0.86 10^3/uL 0.00 - 0.90 [facility] Eosinophils [#/volume] in Blood by Automated count 0.21 10^3/uL 0.00 - 0.70 [facility] Basophils [#/volume] in Blood by Automated count 0.04 10^3/uL 0.00 - 0.20 [facility] #IG 0.02 10^3/uL 0.00 - 0.10 [facility] #NRBC 0.00 10^3/uL 0.00 - 0.00 [facility] MANUAL DIFF SEE BELOW [facility] ital Segmented neutrophils/100 leukocytes in Blood by Manual count 55 % 37 - 80 [facility] BAND 0 % 0 - 5 [facility] %LYMPH 39 % 25 - [facility] %MONO 4 % 3 - 8 [facility] %EOS 2 % 0 - 7 [facility] 0 RBC MORPH NOT INDICATED [facility] ID Date Data Source [id number] 08/14/2020 01:48:00 PM EDT [facility] Name Value Range Interpretation Code Description Data Soheila rce(s) Supporting Document(s) COMPREHENSIVE METABOLIC PANEL [facility] COMPREHENSIVE METABOLIC PANEL Sodium [Moles/volume] in Serum or Plasma 136 mEq/L 134 - 153 [facility] Potassium [Moles/volume] in Serum or Plasma 4.4 mEq/L 3.6 - 5.0 [facility] Chloride [Moles/volume] in Serum or Plasma 98 mEq/L 98 - 107 [facility] Carbon dioxide, total [Moles/volume] in Serum or Plasma 27 MEQ/L 22 - 30 [facility] Glucose [Mass/volume] in Serum or Plasma 318 MG/DL 70 - 99 H [facility] BUN 8 MG/DL 7 - 21 [facility] al Creatinine [Mass/volume] in Serum or Plasma 0.4 MG/DL 0.7 - 1.5 L [facility] BUN/CREAT 20 8 - 27 [facility] al Protein [Mass/volume] in Serum or Plasma 7.5 G/DL 6.3 - 8.2 [facility] Albumin [Mass/volume] in Serum or Plasma 3.8 G/DL 3.9 - 5.0 L [facility] Globulin [Mass/volume] in Serum by calculation 3.7 GM/DL 2.4 - 3.2 H [facility] A/G RATIO 1.0 0.8 - 2.0 [facility] al Calcium [Mass/volume] in Serum or Plasma 9.5 MG/DL 8.4 - 10.2 [facility] Bilirubin.total [Mass/volume] in Serum or Plasma <0.7 MG/DL 0.2 - 1.3 [facility] Alkaline phosphatase [Enzymatic activity/volume] in Serum or Plasma 89 U/L 38 - 126 [facility] Aspartate aminotransferase [Enzymatic activity/volume] in Se rum or Plasma 9 U/L 5 - 40 [facility] Alanine aminotransferase [Enzymatic activity/volume] in Seru m or Plasma 10 U/L 7 - 56 [facility] Anion gap 3 in Serum or Plasma 11.0 mmol/L 8.0 - 16.0 [facility] AGE 45 yrs [facility] al NON-AA GFR >60 mL/min [facility] ital AFR AMER GFR >60 mL/min [facility] Male GFR In terprentation [...] >32 mL/min Normal ID Date Data Source [id number] 08/14/2020 01:34:00 PM EDT [facility] Name Value Range Interpretation Code Description Data Soheila rce(s) Supporting Document(s) Prothrombin time (PT) 11.9 SECONDS 11.0 - 15.5 [facility] INR in Platelet poor plasma by Coagulation assay 0.87 0.93 - 1. 23 L [facility] aPTT in Blood by Coagulation assay 26.9 SECONDS 24.8 - 36.7 [facility] \\BLDo\\INR INTERPRETATION\\BLDx\\ Therapeutic range for Coumadin and related oral anticoagulants. - International Normalized Ratio (INR): 2.0 - 3.0 for Venous Thrombosis, Pulmonary Embolus, Tissue heart valves, Acute AR Atrial Fibrillation, Valvular heart disease and recurrent Systemic Embolism. - International Normalized Ratio (INR): 2.5 - 3.5 for Mechanical Prosthetic valve. ID Date Data Source [id number] 08/14/2020 01:34:00 PM EDT [facility] Name Value Range Interpretation Code Description Data Soheila rce(s) Supporting Document(s) Lactate [Moles/volume] in Serum or Plasma 1.9 MMOL/L 0.2 - 2.2 [facility] ID Date Data Source [id number] 08/05/2020 03:29:00 PM EDT [facility] Name Value Range Interpretation Code Description Data Soheila rce(s) Supporting Document(s) SARS coronavirus 2 RNA Detected [facility] This lab was ordered by [facility] richard and reported by [facility]. ID Date Data Source [id number] 08/07/2020 09:31:00 PM EDT [facility] Name Value Range Interpretation Code Description Data Soheila rce(s) Supporting Document(s) SARS-CoV-2, SHUN Detected Not Detected A [facility] Patients who have a positive COVID-[address] result may now havetreatment options. Treatment options are available for patientswith mild to moderate symptoms and for hospitalized patients.Visit our website at [email or web address] forresources and information.This nucleic acid amplification test was developed and its performancecharacteristics determined by [facility]. Nucleic acidamplification tests include RT-PCR and TMA. [...] assay. SARS-CoV-2, SHUN 2 DAY TAT Performed [facility] ID Date Data Source [id number] 07/13/2020 12:33:00 PM EDT [facility] 1 OrderSheet [facility] Emergency Department [address] [place] [address] Phone #: ext- [phone] 07/13/2020 12:32 Patient: OWEN FLOYD Sex: F : 1975 Age: 44yWEIGHT:86.1 kg (S) HEIGHT:63 inches (S) BMI:33.6ALLERGIES: AspirinCHIEF COMPLAINT: dental painDIAGNOSIS: ToothacheLAB ORDERSOrder Description Priority Entered Acknowledged InitialedDIAGNOSTIC STUDY ORDERSOrder Description Priority Entered Acknowledged InitialedMEDICATION/IV/DRIP/FLUID ORDERSOrder Description Priority Entered Acknowledged InitialedRocephin IM 1000 14:05 07/13/2020 14:21 Tavon,mg Chandler Greer RN P.A.-C;Toradol IM 30 mg 14:05 07/13/2020 14:22 Chandler Montes De Oca RN P.A.-C;Lidocaine Viscous 14:05 07/13/2020 14:22 Tavon,PO 15 mL (apply to Chandler Greer RNgauze then to P.A.-C;tooth)[place] (7.5-325mg) 14:05 07/13/2020 14:22 Tavon,PO 1 tab (HIGH Chandler Greer RNALERT P.A.- C;MEDICATION)Tylenol PO 650 mg 14:05 07/13/2020 14:22 Chandler Montes De Oca RN PTerrell;GENERAL ORDERSOrder Description Priority Entered Acknowledged Initialed[Electronically signed by Katerina Pierce RN (14:53 07/02)][Electronically signed by Chandler Fuchs P.A.-C (00:04 07/14/2020)][Electronically locked by Katerina Pierce RN (14:53 07/13/2020)] Name Value Range Interpretation Code Description Data Soheila rce(s) Supporting Document(s) ID Date Data Source [id number] 07/13/2020 12:33:00 PM EDT [facility] 1 Medication Reconciliation Report [facility] Emergency Department [address] [place] [address] Phone #: [phone] 07/13/2020 12:32 Patient: OWEN FLOYD Sex: F [...] -- Dispense 20 tablet. Refills: 0 .Substitution permitted.[facility] [address] [place] [id number]. . 2 Medication Reconciliation Report [facility] Emergency Department [address] [place] [address] Phone #: ext- [phone] 07/13/2020 12:32 Patient: OWEN FLOYD Sex: F : 1975 Age: 44yOral Anesthetic 20 % mucosal gel Apply a small amount four times a day for 10 days -- Dispense 1tube. Refills: 0. Substitution permitted. Note to Pharmacy - Rx Discount Card: 7.62. Use: BIN:[id number],PCN:LAVELL, Group:EMR, ID:[id number].[facility] [address] [place] [address] [id number]. .gabapentin 100 mg capsule Take 1 capsule three times a day for 3 days -- Dispense 9 capsule. Refills:0. Substitution permitted.[facility] [address] [place] [address] [id number]. . -- Chandler Fuchs P.A.-C Name Value Range Interpretation Code Description Data Soheila rce(s) Supporting Document(s) ID Date Data Source [id number] 07/13/2020 12:33:00 PM EDT [facility] 1 Medication Administration Record [facility] Emergency Department [address] [place] [address] Phone #: ext- [phone] 07/13/2020 12:32 Patient: [...] Montes De Oca RNGiven NORCO (7.5-325MG) [PO] [place] (7.5-325mg) PO 1 tab (HIGH14:07/13/2020 (ACETAMINOPHEN- HYDROCODONE) ALERT MEDICATION)Zoey Mnotes De Oca RN Dose: 1 tab POGiven TYLENOL [PO] (APAP) Tylenol PO 650 mg14:22 07/13/2020 Dose: 650 mg Zoey Calvo RN Name Value Range Interpretation Code Description Data Soheila rce(s) Supporting Document(s) ID Date Data Source [id number] 07/13/2020 12:33:00 PM EDT [facility] 1 General Instructions [facility] Emergency Department [address] [place] [address] Phone #: ext- [phone] 07/13/2020 12:32 Patient: [...] -- Dispense 20 tablet. Refills: 0. Substitution permitted.[facility] [address] [place] [address] [id number]. .Oral Anesthetic 20 % mucosal gel Apply a small amount four times a day for 10 days -- Dispense 1tube. Refills: 0. Substitution permitted. Note to Pharmacy - Rx Discount Card: 7.62. Use: BIN:[id number],PCN:LAVELL, Group:EMR, ID:[id number].[facility] [address] ; [place], [place] [id number]. .gabapentin 100 mg capsule Take 1 capsule three times a day for 3 days -- Dispense 9 capsule. Refills:0. Substitution permitted.[facility] [address] [place] [address] [id number]. Phone: [phone] 2 General Instructions [facility] Emergency Department [address] [place] [address] Phone #: ext- [phone] 07/13/2020 12:32 Patient: OWEN FLOYD Sex: F : 1975 Age: [id number] .Follow-up:Return to the emergency department as needed. [...] jaw on thesame side. 3 General Instructions [facility] Emergency Department [address] [place] [address] Phone #: ext- [phone] 07/13/2020 12:32 Patient: OWEN FLOYD Sex: F : 1975 Age: 44yHome careFollow these tips when caring for yourself at home: Don't have hot and cold foods and drinks. Your tooth may be sensitive to changes in temperature. Use toothpaste made for sensitive teeth. [place] gently up and down instead of sideways. Brushing sideways can wear away root surfaces if they are exposed. If your tooth is chipped or cracked, see a dentist right away. For short-term pain relief, put clove oil right on the tooth. You can buy clove oil at pharmacies. Some pharmacies carry an qils-xir-fioesuk toothache kit. This has a paste you can put on the exposed tooth to make it less sensitive. Use a cold pack. Put a cold pack on your jaw over the sore area to help reduce pain. Ask your healthcare provider about using xoga-ctg-icpolul medicine for pain. You may use this [...] This will keep the pain from comingback.Call [phone] if any of these occur: Abnormal drowsiness Headache or stiff neck Weakness or fainting Trouble swallowing or breathingWhen to get medical adviceCall your healthcare provider right away if any of these occur: 4 General Instructions [facility] Emergency Department [address] [place] [address] Phone #: ext- [phone] 07/13/2020 12:32 Patient: OWEN FLOYD Sex: F : 1975 Age: 44y Your face gets swollen or red Pain gets worse or spreads to your neck Fever of 100.4F (38.0C) or higher, or as directed by your provider Pus drains from the tooth 1999- 2019 [employer]. [address] [place], [place] [address]. All rights reserved. This information is not intended as asubstitute for professional medical care. Always follow your healthcare professional's instructions. You have been given the following additional information: Dental Pain(Electronically signed by Chandler Fuchs P.A.-C 07/14/2020 00:04) Name Value Range Interpretation Code Description Data Soheila rce(s) Supporting Document(s) ID Date Data Source [id number] 07/13/2020 12:33:00 PM EDT [facility] 1 Clinical Report - Nurses [facility] Emergency Department [address] [place] [address] Phone #: ext- [phone] 07/13/2020 12:32 Patient: [...] days). 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 (3 hrs ago).SEPSIS SCREEN: SIRS SCREEN [...] Oca RN. 2 Clinical Report - Nurses [facility] Emergency Department [address] [place] [address] Phone #: ext- [phone] 07/13/2020 12:32 Patient: [...] --12:41 07/13/20 Zoey Montes De Oca, RADHA.PHYSICAL [id number]:12 07/13/20. Ambulatory to room.GENERAL / NEURO / [...] Pierce RN 3 Clinical Report - Nurses [facility] Emergency Department [address] [place] [address] Phone #: ext- [phone] 07/13/2020 12:32 Patient: OWEN FLOYD Sex: F [...] Patient verbalized understanding. Written instructions provided in Taiwanese. The patient was discharged home. She left [...] rce(s) Supporting Document(s) ID Date Data Source [id number] 07/13/2020 12:33:00 PM EDT [facility] 1 Clinical Report - Physicians/Mid Levels [facility] Emergency Department [address] [place] [address] Phone #: ext- [phone] 07/13/2020 12:32 Patient: OWEN FLOYD Sex: F [...] Infection. 2 Clinical Report - Physicians/Mid Levels [facility] Emergency Department [address] [place] [address] Phone #: ext- [phone] 07/13/2020 12:32 Patient: [...] looking. 3 Clinical Report - Physicians/Mid Levels [facility] Emergency Department [address] [place] [address] Phone #: ext- [phone] 07/13/2020 12:32 Patient: OWEN FLOYD Sex: F : 1975 Age: 44y Pt indicates she has dental pain. Sts she missed her oral surgeon appt. 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 Pt is in [...] daily. 4 Clinical Report - Physicians/Mid Levels [facility] Emergency Department [address] [place] [address] Phone #: ext- [phone] 07/13/2020 12:32 Patient: OWEN FLOYD Sex: F : 1975 Age: 44y Prescription Medications: Augmentin 875 mg-125 mg tablet Take 1 tablet twice a day for 10 days -- Dispense 20 tablet. Refills: 0. Substitution permitted. [facility] [address] [place] [address] [id number]. . Oral Anesthetic 20 % mucosal gel Apply a small amount four times a day for 10 days -- Dispense 1 tube. Refills: 0. Substitution permitted. Note to Pharmacy - Rx Discount Card: 7.62. Use: BIN:[id number], PCN:LAVELL, Group:EMR, ID:[id number]. [facility] [address] [place] [address] [id number]. . gabapentin 100 mg capsule Take 1 capsule three times a day for 3 days -- Dispense 9 capsule. Refills: 0. Substitution permitted. [facility] [address] [place] [address] [id number]. . Follow-up: Return to the emergency department [...] Current Smoker completed Curre nt Smoker eCW1 ([facility]) Smoking 08/26/2020 12:00:00 AM EDT Current Smoker completed Curre nt Smoker eCW1 ([facility]) Smoking 08/26/2020 12:00:00 AM EDT Current Smoker completed Curre nt Smoker eCW1 ([facility]) Smoking 08/26/2020 12:00:00 AM EDT Current Smoker completed Curre nt Smoker eCW1 ([facility]) Smoking 02/18/2020 12:00:00 AM EST Current Smoker completed Curre nt Smoker eCW1 ([facility]) Smoking 02/18/2020 12:00:00 AM EST Current Smoker completed Curre nt Smoker eCW1 ([facility]) Smoking 02/18/2020 12:00:00 AM EST Current Smoker completed Curre nt Smoker eCW1 ([facility]) Smoking 02/18/2020 12:00:00 AM EST Current Smoker completed Curre nt Smoker eCW1 ([facility]) Smoking 02/18/2020 12:00:00 AM EST Current Smoker completed Curre nt Smoker eCW1 ([facility]) Smoking 02/18/2020 12:00:00 AM EST Current Smoker completed Curre nt Smoker eCW1 ([facility]) Smoking 12/24/2019 12:00:00 AM EDT Current Smoker completed Curre nt Smoker eCW1 ([facility]) Smoking 12/24/2019 12:00:00 AM EDT Current Smoker completed Curre nt Smoker eCW1 ([facility]) Vital Signs ID Date Data Source UNK Name Value Range Interpretation Code Description Data Source(s) Body weight 177 [lb_av] 177 [lb_av] eCW1 ([facility]) Body height 63 [in_i] 63 [in_i] eCW1 ([facility]) Body mass index (BMI) [Ratio] 31.35 kg/m2 31.35 kg/m2 eCW1 ([facility]) Heart rate 117 /min 117 /min eCW1 ([facility]) Respiratory rate 20 /min 20 /min eCW1 ([facility]) Body temperature 96.5 [degF] 96.5 [degF] eCW1 ( [facility]) Systolic blood pressure 126 mm[Hg] 126 mm[Hg] e CW1 ([facility]) Diastolic blood pressure 82 mm[Hg] 82 mm[Hg] eCW1 ([facility]) Body weight 199 [lb_av] 199 [lb_av] eCW1 ([facility]) Body height 63 [in_i] 63 [in_i] eCW1 ([facility]) Body mass index (BMI) [Ratio] 35.25 kg/m2 35.25 kg/m2 eCW1 ([facility]) Heart rate 96 /min 96 /min eCW1 ([facility]) Respiratory rate 20 /min 20 /min eCW1 ([facility]) Body temperature 96.9 [degF] 96.9 [degF] eCW1 ( [facility]) Systolic blood pressure 152 mm[Hg] 152 mm[Hg] e CW1 ([facility] [facility] Diastolic blood pressure 98 mm[Hg] 98 mm[Hg] eCW1 ([facility]) Body weight 204.0 [lb_av] 204.0 [lb_av] eCW1 ([facility]) Body height 63 [in_i] 63 [in_i] eCW1 ([facility]) Body mass index (BMI) [Ratio] 36.13 kg/m2 36.13 kg/m2 eCW1 ([facility]) Systolic blood pressure 128 mm[Hg] 128 mm[Hg] e CW1 ([facility]) Diastolic blood pressure 78 mm[Hg] 78 mm[Hg] eCW1 ([facility]) Patient Treatment Plan of Care Planned Activity Planned Date Details Description Data Source (s) Citalopram 20 MG Oral Tablet [Celexa] 09/13/2020 12:00:00 AM EDT eCW1 ([facility]) gabapentin 300 MG Oral Capsule 09/13/2020 12:00:00 AM EDT eCW1 ([facility]) Citalopram 20 MG Oral Tablet [Celexa] 09/13/2020 12:00:00 AM EDT eCW1 ([facility]) gabapentin 300 MG Oral Capsule 09/13/2020 12:00:00 AM EDT eCW1 ([facility]) Citalopram 20 MG Oral Tablet [Celexa] 09/13/2020 12:00:00 AM EDT eCW1 ([facility]) gabapentin 300 MG Oral Capsule 09/13/2020 12:00:00 AM EDT eCW1 ([facility]) Clindamycin 300 MG Oral Capsule 08/26/2020 12:00:00 AM EDT eCW1 ([facility]) Clindamycin 300 MG Oral Capsule 08/26/2020 12:00:00 AM EDT eCW1 ([facility]) Clindamycin 300 MG Oral Capsule 08/26/2020 12:00:00 AM EDT eCW1 ([facility]) Clindamycin 300 MG Oral Capsule 08/26/2020 12:00:00 AM EDT eCW1 ([facility]) Metformin hydrochloride 500 MG Oral Tablet 02/18/2020 12:00:[address] eCW1 ([facility]) Lisinopril 10 MG Oral Tablet 02/18/2020 12:00:00 AM EST eCW1 ([facility]) Paroxetine 20 MG Oral Tablet [Paxil] 02/18/2020 12:00:00 AM EST eCW1 ([facility]) Omeprazole 40 MG Delayed Release Oral Capsule 02/18/2020 12:00:00 A M EST eCW1 ([facility]) Metformin hydrochloride 500 MG Oral Tablet 02/18/2020 12:00:[address] eCW1 ([facility]) Lisinopril 10 MG Oral Tablet 02/18/2020 12:00:00 AM EST eCW1 ([facility]) Paroxetine 20 MG Oral Tablet [Paxil] 02/18/2020 12:00:00 AM EST eCW1 ([facility]) Omeprazole 40 MG Delayed Release Oral Capsule 02/18/2020 12:00:00 A M EST eCW1 ([facility]) Metformin hydrochloride 500 MG Oral Tablet 02/18/2020 12:00:[address] eCW1 ([facility]) Omeprazole 40 MG Delayed Release Oral Capsule 02/18/2020 12:00:00 A M EST eCW1 ([facility]) Paroxetine 20 MG Oral Tablet [Paxil] 02/18/2020 12:00:00 AM EST eCW1 ([facility]) Lisinopril 10 MG Oral Tablet 02/18/2020 12:00:00 AM EST eCW1 ([facility]) Metformin hydrochloride 500 MG Oral Tablet 02/18/2020 12:00:[address] eCW1 ([facility]) Lisinopril 10 MG Oral Tablet 02/18/2020 12:00:00 AM EST eCW1 ([facility]) Paroxetine 20 MG Oral Tablet [Paxil] 02/18/2020 12:00:00 AM EST eCW1 ([facility]) Omeprazole 40 MG Delayed Release Oral Capsule 02/18/2020 12:00:00 A M EST eCW1 ([facility]) Metformin hydrochloride 500 MG Oral Tablet 02/18/2020 12:00:[address] eCW1 ([facility]) Lisinopril 10 MG Oral Tablet 02/18/2020 12:00:00 AM EST eCW1 ([facility]) Paroxetine 20 MG Oral Tablet [Paxil] 02/18/2020 12:00:00 AM EST eCW1 ([facility]) Omeprazole 40 MG Delayed Release Oral Capsule 02/18/2020 12:00:00 A M EST eCW1 ([facility]) Metformin hydrochloride 500 MG Oral Tablet 02/18/2020 12:00:[address] eCW1 ([facility]) Lisinopril 10 MG Oral Tablet 02/18/2020 12:00:00 AM EST eCW1 ([facility]) Paroxetine 20 MG Oral Tablet [Paxil] 02/18/2020 12:00:00 AM EST eCW1 ([facility]) Omeprazole 40 MG Delayed Release Oral Capsule 02/18/2020 12:00:00 A M ROMINA Cuellar1 ([facility])
== END 2021-01-07 17:10 | disposition left against medical advice (07) ==
LOC: M ED 17:04
DX: Z53.21 Procedure and treatment not carried out due to patient leaving prior to being seen by health care provider (principal)

== ENCOUNTER → 2022-04-04 | Outpatient (CLI) | payer OTHER ==
[~2022-04-04] MED LIST changes: +BUPR-71 PO; -BUPR150T5 PO
== END ==
LOC: M RAD 09:39
PROVIDERS: ATTEND Family Medicine Addiction Medicine
DX: K82.8 Other specified diseases of gallbladder (principal)

== ENCOUNTER 2022-06-29 06:56 | Day surgery (SDC) | payer OTHER ==
[~2022-06-29] VITALS: Ht 162.6 cm; Wt 81.1 kg
[~2022-06-29 06:56] MED LIST changes: -CITA20TA6; +CITA20TA6 PO; +METF10004 PO; +ceFAZolin SOD 2 GM in IV 1 EA IV ONE
[2022-06-29] MEDS ORDERED: LR 1,000 ML IV SCH ×2 (07:20→10:15)
[2022-06-29] MEDS ORDERED: INSULIN LISPRO (NovoLOG) PER UNIT SC ONE (07:40)
[2022-06-29] MEDS ORDERED: propofoL 200 MG/20 ML VIAL As Ordered ONE ×2 (07:56→09:45)
[2022-06-29] MEDS ORDERED: fentaNYL 100 MCG/2 ML INJECTION As Ordered ONE (07:56)
[2022-06-29] MEDS ORDERED: ROCURONIUM BROMIDE 50MG/5ML VIAL As Ordered ONE (07:56)
[2022-06-29] MEDS ORDERED: LIDOCAINE 2% 100MG/5ML SDV (FOR ANES.) As Ordered ONE (07:56)
[2022-06-29] MEDS ORDERED: MIDAZOLAM INJ 2MG/2ML VIAL As Ordered ONE (07:57)
[2022-06-29] MEDS ORDERED: BUPIVACAINE/EPIN 0.25% 30ML VIAL As Ordered ONE (08:39)
[2022-06-29] MEDS ORDERED: ISOVUE-300 61% 100ML VIAL As Ordered ONE (08:41)
[2022-06-29] MEDS ORDERED: PHENYLephrine 500MCG 5ML (100MCG/ML) SYRINGE As Ordered ONE (09:26)
[2022-06-29] MEDS ORDERED: SUGAMMADEX SODIUM 500 MG/5 ML VIAL (BRIDION) As Ordered ONE (09:32)
[2022-06-29] MEDS ORDERED: ONDANSETRON 4MG 2ML VIAL As Ordered ONE (09:33)
[2022-06-29] MEDS ORDERED: HYDROmorphone HCL 2MG/ML 1ML VIAL As Ordered ONE (09:36)
[2022-06-29] MEDS ORDERED: KETOROLAC 60MG 2ML VIAL As Ordered ONE (10:06)
[2022-06-29] MEDS ORDERED: NORCO, ANEXSIA 5/325MG TABLET (HYDROcodone/ACETAMINOPHEN) PO PRN ×2 (10:15)
[2022-06-29] MEDS ORDERED: ONDANSETRON 4MG 2ML VIAL IV PRN (10:15)
[2022-06-29] MEDS ORDERED: NS 1,000 ML IV SCH (10:15)
[2022-06-29] MEDS ORDERED: fentaNYL 100 MCG/2 ML INJECTION IV PRN (10:15)
[2022-06-29] MEDS ORDERED: INSULIN LISPRO (NovoLOG) PER UNIT SC PRN (10:30)
[2022-06-29] MEDS: HYDROMORPHONE HCL 0.5 MG/ 0.5 ML SYRINGE IV PRN ×2 (10:37→10:57)
[2022-06-29] MEDS: oxyCODONE 5MG TAB PO PRN ×2 (10:37→11:08)
[2022-06-29] MEDS ORDERED: METOCLOPRAMIDE INJ 10MG/2ML VIAL IV PRN (10:45)
[2022-06-29] MEDS: hydrALAZINE 20MG/ML 1ML VIAL IV PRN ×2 (11:15→11:20)
[2022-06-29 11:20] VITALS: BP 186/93
[2022-06-29 12:47] VITALS: BP 138/70
== END 2022-06-29 13:00 | disposition home or self-care (01) ==
LOC: M SDC 06:56
PROVIDERS: ATTEND Surgery
DX: K80.10 Calculus of gallbladder with chronic cholecystitis without obstruction (principal); D49.0 Neoplasm of unspecified behavior of digestive system; I10 Essential (primary) hypertension; E11.9 Type 2 diabetes mellitus without complications; F41.9 Anxiety disorder, unspecified; F32.A Depression, unspecified; M48.00 Spinal stenosis, site unspecified; F17.210 Nicotine dependence, cigarettes, uncomplicated; Z79.899 Other long term (current) drug therapy; Z79.84 Long term (current) use of oral hypoglycemic drugs
CPT/HCPCS: 47562; 81025; 88304; 93005; J0360; J1100; J1170; J1885; J2250; J2370; J2405; J2765; J3010

== ENCOUNTER → 2022-11-06 | Outpatient (CLI) | payer MEDICAID ==
[~2022-11-06] MED LIST changes: -ceFAZolin SOD 2 GM in IV 1 EA IV ONE
== END ==
LOC: M OUTALCOH 07:21
PROVIDERS: ATTEND Psychiatry & Neurology Psychiatry
DX: F12.10 Cannabis abuse, uncomplicated (principal); F17.200 Nicotine dependence, unspecified, uncomplicated

== ENCOUNTER → 2023-12-26 | Outpatient (REF) | payer MEDICAID, OTHER ==
[2023-12-26 18:22] LABS: CREATININE, URINE 34.5 MG/DL; MALB URINE SIEMENS < 3.0 MG/L; MAU/CREAT RATIO 8.6 MCG/MG (0.0-30.0)
== END ==
LOC: M LAB REF 16:34
PROVIDERS: ATTEND Family Medicine Addiction Medicine
DX: E11.9 Type 2 diabetes mellitus without complications (principal)

== ENCOUNTER 2024-01-17 14:47 | Emergency (ER) | payer OTHER ==
[~2024-01-17] VITALS: Ht 165.1 cm; Wt 78.6 kg
[2024-01-17 15:29] LABS: BASO # 0.1 10^3/uL (0.0-0.2); BASO % 0.3 % (0.0-1.0); EOS # 0.1 10^3/uL (0.0-0.5); EOS % 0.7 % (0.0-3.0); HEMATOCRIT 47.6 % (36.0-47.0); HEMOGLOBIN 16.1 g/dl (12.0-15.5); LYMPH # 5.3 10^3/uL (1.5-5.0); LYMPH % 35.7 % (24.0-44.0); MEAN CORPUSCULAR HEMOGLOBIN 30.5 pg (27.0-33.0); MEAN CORPUSCULAR HGB CONC 33.8 g/dl (32.0-36.5); MEAN CORPUSCULAR VOLUME 90.2 fl (80.0-96.0); MONO # 0.9 10^3/uL (0.0-0.8); MONO % 6.3 % (2.0-8.0); NEUTROPHILS # 8.4 10^3/uL (1.5-8.5); NEUTROPHILS % 56.7 % (36.0-66.0); PLATELET COUNT, AUTOMATED 379 10^3/uL (150-450); RED BLOOD COUNT 5.28 10^6/uL (4.00-5.40); WHITE BLOOD COUNT 14.8 10^3/uL (4.0-10.0)
[2024-01-17 15:41] LABS: INR 0.85; PROTHROMBIN TIME 11.9 SECONDS (12.5-14.5)
[2024-01-17 16:01] LABS: CK-MB VALUE MASS < 1.0 NG/ML (<3.6)
[2024-01-17 16:02] LABS: LIPASE 37 U/L (12-53)
[2024-01-17 16:03] LABS: ALBUMIN 3.5 G/DL (3.2-5.2); ALKALINE PHOSPHATASE 97 U/L (35-104); ALT/SGPT 19 U/L (7.0-40); AST/SGOT 8 U/L (<34); BILIRUBIN,DIRECT < 0.1 MG/DL (<0.4); BILIRUBIN,TOTAL 0.3 MG/DL (0.3-1.2); TOTAL PROTEIN 7.9 G/DL (5.7-8.2)
[2024-01-17 16:04] LABS: CPK CREATINE PHOSPHOKINASE 121 U/L (34-145); MB/CK RELATIVE INDEX 0.82 (< OR =4)
[2024-01-17 17:12] LABS: ETHYL ALCOHOL (ETHANOL) 0.008 % (0.000-0.010)
[2024-01-17 17:14] LABS: BLOOD UREA NITROGEN 17 MG/DL (9-23); CARBON DIOXIDE LEVEL 25 MMOL/L (20-31); CHLORIDE LEVEL 102 MMOL/L (98-107); CREATININE FOR GFR 0.45 MG/DL (0.55-1.30); GLOMERULAR FILTRATION RATE > 60.0 (>58); GLUCOSE, FASTING 391 MG/DL (60-100); POTASSIUM SERUM 4.5 MMOL/L (3.5-5.1); SALICYLATE LEVEL < 3.0 MG/DL (<30); SODIUM LEVEL 135 MMOL/L (136-145)
[2024-01-17 17:16] LABS: FREE T4 1.53 NG/DL (0.89-1.76); THYROID STIMULATING HORMONE 0.671 uIU/ML (0.55-4.78)
[2024-01-17 17:17] LABS: AMPHETAMINES LEVEL URINE NEGATIVE (NEGATIVE); BARBITURATES URINE NEGATIVE (NEGATIVE); BENZODIAZEPINES URINE NEGATIVE (NEGATIVE); METHADONE URINE NEGATIVE (NEGATIVE); OPIATES URINE NEGATIVE (NEGATIVE); PHENCYCLIDINE URINE NEGATIVE (NEGATIVE)
[2024-01-17 17:18] LABS: CANNABINOIDS URINE POSITIVE (NEGATIVE); COCAINE METABOLITE URINE POSITIVE (NEGATIVE)
[2024-01-17 18:13] LABS: CK-MB VALUE MASS < 1.0 NG/ML (<3.6)
[2024-01-17 18:27] VITALS: BP 145/82; TEMP 98.3; O2SAT 97
[2024-01-17 18:37] LABS: CPK CREATINE PHOSPHOKINASE 100 U/L (34-145)
== END 2024-01-17 18:54 | disposition home or self-care (01) ==
LOC: M ED 14:47 → EDBD 14:47 → M ED 18:54
DX: R07.9 Chest pain, unspecified (principal); R45.7 State of emotional shock and stress, unspecified; E11.9 Type 2 diabetes mellitus without complications; F14.10 Cocaine abuse, uncomplicated; Z88.8 Allergy status to other drugs, medicaments and biological substances; Z79.84 Long term (current) use of oral hypoglycemic drugs; Z79.899 Other long term (current) drug therapy

== ENCOUNTER 2024-06-15 12:08 | Emergency (ER) | payer MEDICAID, OTHER ==
[~2024-06-15] VITALS: Ht 165.1 cm; Wt 71.5 kg
[2024-06-15 12:14] VITALS: TEMP 99.1
[2024-06-15 13:11] LABS: HEMATOCRIT 45.7 % (36.0-47.0); HEMOGLOBIN 15.5 g/dl (12.0-15.5); MEAN CORPUSCULAR HEMOGLOBIN 29.6 pg (27.0-33.0); MEAN CORPUSCULAR HGB CONC 33.9 g/dl (32.0-36.5); MEAN CORPUSCULAR VOLUME 87.4 fl (80.0-96.0); PLATELET COUNT, AUTOMATED 437 10^3/uL (150-450); RED BLOOD COUNT 5.23 10^6/uL (4.00-5.40)
[2024-06-15 13:18] LABS: ERYTHROCYTE SEDIMENTATION RATE 122 mm/hr (0-20)
[2024-06-15 13:35] LABS: BLOOD UREA NITROGEN 6 MG/DL (9-23); CALCIUM LEVEL 9.5 MG/DL (8.5-10.1); CARBON DIOXIDE LEVEL 29 MMOL/L (20-31); CHLORIDE LEVEL 99 MMOL/L (98-107); CREATININE FOR GFR 0.41 MG/DL (0.55-1.30); GLOMERULAR FILTRATION RATE > 90.0 (>58); GLUCOSE, FASTING 387 MG/DL (60-100); POTASSIUM SERUM 4.2 MMOL/L (3.5-5.1); SODIUM LEVEL 137 MMOL/L (136-145)
[2024-06-15 13:40] LABS: HEMOGLOBIN A1c 11.7 % (4.0-6.0)
[2024-06-15 13:49] LABS: ATYPICAL LYMPH 2 % (0-5); EOSINOPHILS 1 % (0-3); LYMPHOCYTES 18 % (16-44); MONOCYTES 5 % (0-5); NEUTROPHILS 73 % (28-66); PLATELET ESTIMATE NORMAL (NORMAL)
[2024-06-15] MEDS: KETOROLAC 30 MG/ML 1ML VIAL IV ONE (14:05)
[2024-06-15] MEDS ORDERED: ISOVUE-370 76% 100ML VIAL As Ordered ONE (14:09)
[2024-06-15 14:29] VITALS: BP 126/78; O2SAT 94
[2024-06-15] MEDS ORDERED: CLEO300C2 PO (16:34)
[2024-06-15] MEDS: CLINDAMYCIN 150MG CAPSULE PO ONE (16:40)
== END 2024-06-15 17:00 | disposition left against medical advice (07) ==
LOC: EDBD 12:08 → M ED 12:08
DX: H04.3 Acute and unspecified inflammation of lacrimal passages (principal); E11.9 Type 2 diabetes mellitus without complications; I10 Essential (primary) hypertension; K21.9 Gastro-esophageal reflux disease without esophagitis; F15.10 Other stimulant abuse, uncomplicated; Z88.6 Allergy status to analgesic agent; Z79.2 Long term (current) use of antibiotics; Z79.84 Long term (current) use of oral hypoglycemic drugs; Z79.899 Other long term (current) drug therapy; Z53.9 Procedure and treatment not carried out, unspecified reason
CPT/HCPCS: 36415; 70491; 80048; 83036; 83605; 85025; 85652; 86140; 87040; 87077; 87154; 87186; 99284; Q9967

== ENCOUNTER 2024-06-18 16:41 | Inpatient (IN) | payer OTHER ==
[~2024-06-18] VITALS: Ht 160 cm; Wt 73.1 kg
[~2024-06-18 16:41] MED LIST changes: +CLEO300C2 PO
[2024-06-18] MEDS ORDERED: IBUP200T46 PO (16:52)
[2024-06-18] MEDS ORDERED: LISI10TA22 PO (16:52)
[2024-06-18 18:54] LABS: HEMATOCRIT 41.1 % (36.0-47.0); MEAN CORPUSCULAR HEMOGLOBIN 29.5 pg (27.0-33.0); MEAN CORPUSCULAR HGB CONC 34.1 g/dl (32.0-36.5); MEAN CORPUSCULAR VOLUME 86.5 fl (80.0-96.0); PLATELET COUNT, AUTOMATED 473 10^3/uL (150-450); RED BLOOD COUNT 4.75 10^6/uL (4.00-5.40)
[2024-06-18 19:20] LABS: BLOOD UREA NITROGEN 9 MG/DL (9-23); CARBON DIOXIDE LEVEL 30 MMOL/L (20-31); CHLORIDE LEVEL 99 MMOL/L (98-107); CREATININE FOR GFR 0.38 MG/DL (0.55-1.30); GLOMERULAR FILTRATION RATE > 90.0 (>58); GLUCOSE, FASTING 340 MG/DL (60-100); POTASSIUM SERUM 4.5 MMOL/L (3.5-5.1); SODIUM LEVEL 136 MMOL/L (136-145)
[2024-06-18 19:22] LABS: LYMPHOCYTES 36 % (16-44); MONOCYTES 3 % (0-5); NEUTROPHILS 61 % (28-66); PLATELET ESTIMATE INCREASED (NORMAL)
[2024-06-18] MEDS: AMPICILLIN SOD/SULBACTAM SOD 3 GM in DEXTROSE 5% (D5W) MINI-BAG PLU 100 ML IV ONE (20:32)
[2024-06-18] MEDS ORDERED: METF500T13 PO (20:57)
[2024-06-18] MEDS ORDERED: CLIN-250 PO (20:57)
[2024-06-18] MEDS ORDERED: HOME MED LIST COMPLETE! XX SCH (21:10)
[2024-06-18] MEDS ORDERED: MOM 30ML SUSPENSION UDC PO PRN (22:10)
[2024-06-18] MEDS ORDERED: MAALOX 30 ML SUSP *UDC PO PRN (22:10)
[2024-06-18 23:13] LABS: INR 0.92; PARTIAL THROMBOPLASTIN TIME 24.3 SECONDS (24.8-34.2); PROTHROMBIN TIME 12.6 SECONDS (12.5-14.5)
[2024-06-18] MEDS: ACETAMINOPHEN 325 MG TAB PO PRN (23:54)
[2024-06-19 02:28] VITALS: BP 138/92; TEMP 97.4; O2SAT 97
[2024-06-19] MEDS ORDERED: GLUCOSE 4 GM CHEW PO PRN (03:40)
[2024-06-19] MEDS ORDERED: DEXTROSE 50% 50ML SYRINGE IV PRN (03:40)
[2024-06-19] MEDS ORDERED: GLUCAGON INJ 1MG VIAL SC PRN (03:40)
[2024-06-19 04:01] VITALS: BP 141/85; TEMP 99.4; O2SAT 99
[2024-06-19] MEDS: HEPARIN SOD (PORCINE) 5000UNITS/ML 1ML VIAL/SYRINGE SC SCH (05:51)
[2024-06-19] MEDS: CLINDAMYCIN 900 MG in IV 1 EA IV SCH (05:51)
[2024-06-19 06:51] LABS: HEMATOCRIT 39.4 % (36.0-47.0); HEMOGLOBIN 13.2 g/dl (12.0-15.5); MEAN CORPUSCULAR HEMOGLOBIN 29.6 pg (27.0-33.0); MEAN CORPUSCULAR HGB CONC 33.5 g/dl (32.0-36.5); MEAN CORPUSCULAR VOLUME 88.3 fl (80.0-96.0); PLATELET COUNT, AUTOMATED 420 10^3/uL (150-450); RED BLOOD COUNT 4.46 10^6/uL (4.00-5.40); WHITE BLOOD COUNT 12.1 10^3/uL (4.0-10.0)
[2024-06-19 07:02] LABS: INR 0.91; PROTHROMBIN TIME 12.5 SECONDS (12.5-14.5)
[2024-06-19 07:21] LABS: ALBUMIN 2.1 G/DL (3.2-5.2); ALKALINE PHOSPHATASE 75 U/L (35-104); ALT/SGPT 35 U/L (7.0-40); AST/SGOT 17 U/L (<34); BILIRUBIN,TOTAL < 0.2 MG/DL (0.3-1.2); BLOOD UREA NITROGEN 10 MG/DL (9-23); CALCIUM LEVEL 8.4 MG/DL (8.5-10.1); CARBON DIOXIDE LEVEL 30 MMOL/L (20-31); CHLORIDE LEVEL 98 MMOL/L (98-107); CREATININE FOR GFR 0.36 MG/DL (0.55-1.30); GLOMERULAR FILTRATION RATE > 90.0 (>58); GLUCOSE, FASTING 423 MG/DL (60-100); POTASSIUM SERUM 4.4 MMOL/L (3.5-5.1); SODIUM LEVEL 134 MMOL/L (136-145); TOTAL PROTEIN 6.7 G/DL (5.7-8.2)
[2024-06-19 08:00] VITALS: TEMP 98.9; O2SAT 99
[2024-06-19] MEDS: DOCUSATE SODIUM 100MG CAPSULE PO SCH (08:14)
[2024-06-19 08:21] LABS: VENOUS BASE EXCESS 3.6 (-2.0-2.0); VENOUS HCO3 28.9 MMOL/L (23.0-27.0); VENOUS O2 SATURATION 97.9 % (60.0-80.0); VENOUS PARTIAL PRESSURE CO2 46.3 mmHg (38.0-50.0); VENOUS PARTIAL PRESSURE O2 99.4 mmHg (30.0-50.0); VENOUS PH 7.413 UNITS (7.330-7.430); VENOUS STANDARD HCO3 27.7 MMOL/L; VENOUS TOTAL CO2 30.3 MMOL/L (24.0-28.0)
[2024-06-19] MEDS: INSULIN LISPRO (NovoLOG) PER UNIT SC SCH (08:21)
[2024-06-19] MEDS: LanTUS (INSULIN GLARGINE INJ) 1 UNITS/0.01 ML SC SCH (08:21)
[2024-06-19 08:27] VITALS: BP 156/94
[2024-06-19] MEDS ORDERED: NICOTINE 21MG/24HR 1 EA TRANSDERMAL TD SCH (09:00)
[2024-06-19 09:01] LABS: C REACTIVE PROTEIN QUANTITATIV 6.36 MG/DL (<1.0)
[2024-06-19 09:06] LABS: PROCALCITONIN 0.05 ng/ml
[2024-06-19] MEDS ORDERED: AMOX875T2 PO (10:38)
[2024-06-19] MEDS ORDERED: INSULIN LISPRO (NovoLOG) PER UNIT SC SCH (21:00)
== END 2024-06-19 10:20 | disposition left against medical advice (07) | DRG 383 ==
LOC: M ED 16:41 → M ED INP 22:07 → M PCU 06-19 02:24
PROVIDERS: ADMIT Student in an Organized Health Care Education/Training Program; ATTEND Student in an Organized Health Care Education/Training Program
DX: L02.11 Cutaneous abscess of neck (principal); R78.81 Bacteremia; E11.65 Type 2 diabetes mellitus with hyperglycemia; F14.20 Cocaine dependence, uncomplicated; I10 Essential (primary) hypertension; F10.10 Alcohol abuse, uncomplicated; F17.210 Nicotine dependence, cigarettes, uncomplicated; M54.2 Cervicalgia; B95.61 Methicillin susceptible Staphylococcus aureus infection as the cause of diseases classified elsewhere; F41.9 Anxiety disorder, unspecified; F32.A Depression, unspecified; Z88.6 Allergy status to analgesic agent; Z79.84 Long term (current) use of oral hypoglycemic drugs; Z79.899 Other long term (current) drug therapy

== ENCOUNTER → 2024-06-22 | Outpatient (CLI) | payer MEDICAID ==
[~2024-06-22] MED LIST changes: +AMOX875T2 PO; +CLIN-250 PO; +IBUP200T46 PO; +LISI10TA22 PO; +METF500T13 PO
== END ==
LOC: M OUTALCOH 07:21
PROVIDERS: ATTEND Psychiatry & Neurology Psychiatry
DX: F14.20 Cocaine dependence, uncomplicated (principal); F12.20 Cannabis dependence, uncomplicated

== ENCOUNTER 2024-06-25 14:41 | Outpatient (RCR) | payer MEDICAID | END 2024-07-01 | LOC: M OUTALCOH 14:41 | PROVIDERS: ATTEND Psychiatry & Neurology Psychiatry | DX: F14.20 Cocaine dependence, uncomplicated (principal); F12.20 Cannabis dependence, uncomplicated; F17.200 Nicotine dependence, unspecified, uncomplicated ==

== ENCOUNTER 2025-01-22 07:53 | Emergency (ER) | payer MEDICAID, OTHER ==
[~2025-01-22] VITALS: Ht 160 cm; Wt 75.0 kg
[2025-01-22] MEDS: diphenhydrAMINE 50 MG/ML VIAL IV ONE (09:06)
[2025-01-22] MEDS: NS (Normal Saline) 0.9% 1,000 ML IV SCH (09:06)
[2025-01-22 09:29] LABS: BASO # 0.0 10^3/uL (0.0-0.2); BASO % 0.2 % (0.0-1.0); EOS # 0.0 10^3/uL (0.0-0.5); EOS % 0.1 % (0.0-3.0); LYMPH # 2.5 10^3/uL (1.5-5.0); LYMPH % 17.3 % (24.0-44.0); MONO # 0.7 10^3/uL (0.0-0.8); MONO % 4.6 % (2.0-8.0); NEUTROPHILS # 11.1 10^3/uL (1.5-8.5); NEUTROPHILS % 77.4 % (36.0-66.0); PLATELET COUNT, AUTOMATED 360 10^3/uL (150-450)
[2025-01-22] MEDS: NS (Normal Saline) 0.9% 1,000 ML IV ONE (09:30)
[2025-01-22 09:49] LABS: AMPHETAMINES LEVEL URINE NEGATIVE (NEGATIVE); BARBITURATES URINE NEGATIVE (NEGATIVE); BENZODIAZEPINES URINE NEGATIVE (NEGATIVE); COCAINE METABOLITE URINE NEGATIVE (NEGATIVE); METHADONE URINE NEGATIVE (NEGATIVE); OPIATES URINE NEGATIVE (NEGATIVE); PHENCYCLIDINE URINE NEGATIVE (NEGATIVE)
[2025-01-22 09:52] LABS: ALT/SGPT 17 U/L (7.0-40); AST/SGOT 16 U/L (<34)
[2025-01-22 09:57] LABS: CANNABINOIDS URINE POSITIVE (NEGATIVE)
[2025-01-22] MEDS: MORPHINE 4 MG/ML 1 ML VIAL IV PRN (10:51)
[2025-01-22 11:01] LABS: CALCIUM LEVEL 9.4 MG/DL (8.5-10.1); CARBON DIOXIDE LEVEL 22 MMOL/L (20-31); CHLORIDE LEVEL 103 MMOL/L (98-107); CREATININE FOR GFR 0.47 MG/DL (0.55-1.30); GLOMERULAR FILTRATION RATE > 90.0 (>58); POTASSIUM SERUM 4.4 MMOL/L (3.5-5.1); SODIUM LEVEL 137 MMOL/L (136-145)
[2025-01-22] MEDS ORDERED: ISOVUE-370 76% 100 ML VIAL As Ordered ONE (11:07)
[2025-01-22] MEDS ORDERED: GI COCKTAIL 50 ML BTL(HYOSCYAMINE/MAALOX/LIDOCAINE VISCOUS)(1:3:1) PO ONE (11:40)
[2025-01-22] MEDS: PANTOPRAZOLE 40MG VIAL IV ONE (12:10)
[2025-01-22 13:16] VITALS: BP 123/61; TEMP 97.3; O2SAT 97
[2025-01-22] MEDS ORDERED: PROT1TAB2 PO (13:17)
[2025-01-22] MEDS ORDERED: SUCR1SS PO (13:18)
[2025-01-23] MEDS ORDERED: REGL5TAB2 PO (13:51)
[2025-01-23] MEDS ORDERED: ONDA-282 PO (13:51)
[2025-01-23] MEDS ORDERED: METF500T13 PO (13:52)
== END 2025-01-22 13:30 | disposition home or self-care (01) ==
LOC: M ED 07:53
DX: R10.9 Unspecified abdominal pain (principal); R11.0 Nausea; K76.0 Fatty (change of) liver, not elsewhere classified; E11.9 Type 2 diabetes mellitus without complications; I10 Essential (primary) hypertension; F17.210 Nicotine dependence, cigarettes, uncomplicated; F10.10 Alcohol abuse, uncomplicated; Z88.6 Allergy status to analgesic agent; Z79.1 Long term (current) use of non-steroidal anti-inflammatories (NSAID); Z79.2 Long term (current) use of antibiotics; Z79.84 Long term (current) use of oral hypoglycemic drugs; Z79.899 Other long term (current) drug therapy
CPT/HCPCS: 74177; 80047; 80048; 80076; 80307; 83690; 85025; 93005; 96361; 96374; 96375; 99284; J1200; J2470; J2550; J2765; Q9967

== ENCOUNTER 2025-01-23 07:57 | Emergency (ER) | payer OTHER ==
[~2025-01-23] VITALS: Ht 172.7 cm; Wt 75.0 kg
[~2025-01-23 07:57] MED LIST changes: +PROT1TAB2 PO; +SUCR1SS PO
[2025-01-23 08:49] LABS: BASO # 0.0 10^3/uL (0.0-0.2); BASO % 0.2 % (0.0-1.0); EOS # 0.0 10^3/uL (0.0-0.5); EOS % 0.1 % (0.0-3.0); LYMPH # 2.7 10^3/uL (1.5-5.0); LYMPH % 25.2 % (24.0-44.0); MONO # 0.6 10^3/uL (0.0-0.8); MONO % 5.8 % (2.0-8.0); NEUTROPHILS # 7.3 10^3/uL (1.5-8.5); NEUTROPHILS % 68.4 % (36.0-66.0); PLATELET COUNT, AUTOMATED 305 10^3/uL (150-450)
[2025-01-23] MEDS: HALOPERIDOL LACTATE 5 MG/ML VIAL IV ONE (08:54)
[2025-01-23] MEDS: diphenhydrAMINE 50 MG/ML VIAL IV ONE (08:54)
[2025-01-23 09:24] LABS: ALT/SGPT 24 U/L (7.0-40); AST/SGOT 19 U/L (<34); CALCIUM LEVEL 8.8 MG/DL (8.5-10.1); CARBON DIOXIDE LEVEL 24 MMOL/L (20-31); CHLORIDE LEVEL 102 MMOL/L (98-107); CREATININE FOR GFR 0.51 MG/DL (0.55-1.30); GLOMERULAR FILTRATION RATE > 90.0 (>58); POTASSIUM SERUM 3.8 MMOL/L (3.5-5.1); SODIUM LEVEL 138 MMOL/L (136-145)
[2025-01-23] MEDS: PANTOPRAZOLE 40MG VIAL IV ONE (09:44)
[2025-01-23] MEDS ORDERED: ISOVUE-370 76% 100 ML VIAL As Ordered ONE (11:09)
[2025-01-23 13:23] LABS: KETONE, URINE AUTO RFX 1+ mg/dL (NEGATIVE); LEUKOCYTE ESTERASE UR AUTO RFX NEGATIVE (NEGATIVE); MUCUS, URINE RFX SMALL (NEGATIVE); NITRITE, URINE AUTO RFX NEGATIVE (NEGATIVE); RBC, URINE AUTO RFX 1 /HPF (0-3); SQUAM EPITHELIAL CELL UR AURFX 13 /HPF (0-6); WBC, URINE AUTO RFX 0 /HPF (0-3)
[2025-01-23 13:46] LABS: AMPHETAMINES LEVEL URINE NEGATIVE (NEGATIVE); BARBITURATES URINE NEGATIVE (NEGATIVE); BENZODIAZEPINES URINE NEGATIVE (NEGATIVE); COCAINE METABOLITE URINE NEGATIVE (NEGATIVE); METHADONE URINE NEGATIVE (NEGATIVE); PHENCYCLIDINE URINE NEGATIVE (NEGATIVE)
[2025-01-23 13:47] LABS: CANNABINOIDS URINE POSITIVE (NEGATIVE); OPIATES URINE POSITIVE (NEGATIVE)
[2025-01-23] MEDS ORDERED: REGL5TAB2 PO (13:51)
[2025-01-23] MEDS ORDERED: ONDA-282 PO (13:51)
[2025-01-23] MEDS ORDERED: METF500T13 PO (13:52)
[2025-01-23 14:24] VITALS: BP 163/67; TEMP 98.9; O2SAT 98
== END 2025-01-23 14:26 | disposition home or self-care (01) ==
LOC: M ED 07:57
DX: E11.43 Type 2 diabetes mellitus with diabetic autonomic (poly)neuropathy (principal); K31.84 Gastroparesis; I10 Essential (primary) hypertension; N20.0 Calculus of kidney; K21.9 Gastro-esophageal reflux disease without esophagitis; F17.210 Nicotine dependence, cigarettes, uncomplicated; F12.10 Cannabis abuse, uncomplicated; F15.10 Other stimulant abuse, uncomplicated; Z88.6 Allergy status to analgesic agent; Z79.1 Long term (current) use of non-steroidal anti-inflammatories (NSAID); Z79.2 Long term (current) use of antibiotics; Z79.84 Long term (current) use of oral hypoglycemic drugs; Z79.899 Other long term (current) drug therapy
CPT/HCPCS: 74174; 80048; 80076; 80307; 81001; 82077; 83605; 83690; 84484; 85025; 93005; 96374; 96375; 99285; J1200; J1630; J2470; Q9967

== ENCOUNTER 2025-02-03 09:31 | Emergency (ER) | payer OTHER ==
[~2025-02-03] VITALS: Ht 160 cm; Wt 75.9 kg
[~2025-02-03 09:31] MED LIST changes: +ONDA-282 PO; +REGL5TAB2 PO
[2025-02-03 09:39] VITALS: BP 136/63; TEMP 96.8; O2SAT 100
== END 2025-02-03 09:45 | disposition left against medical advice (07) ==
LOC: M ED 09:31 → EDBD 09:31 → M ED 09:45
DX: Z53.21 Procedure and treatment not carried out due to patient leaving prior to being seen by health care provider (principal)

== ENCOUNTER 2025-02-06 08:46 | Emergency (ER) | payer OTHER ==
[~2025-02-06] VITALS: Ht 160 cm; Wt 78.2 kg
[2025-02-06 08:53] VITALS: TEMP 97.9
[2025-02-06 09:55] LABS: BASO # 0.0 10^3/uL (0.0-0.2); BASO % 0.3 % (0.0-1.0); EOS # 0.1 10^3/uL (0.0-0.5); EOS % 0.4 % (0.0-3.0); LYMPH # 2.3 10^3/uL (1.5-5.0); LYMPH % 20.3 % (24.0-44.0); MONO # 0.6 10^3/uL (0.0-0.8); MONO % 5.7 % (2.0-8.0); NEUTROPHILS # 8.2 10^3/uL (1.5-8.5); NEUTROPHILS % 73.0 % (36.0-66.0); PLATELET COUNT, AUTOMATED 369 10^3/uL (150-450)
[2025-02-06 10:19] LABS: ALT/SGPT 19 U/L (7.0-40); AST/SGOT 25 U/L (<34)
[2025-02-06] MEDS ORDERED: ISOVUE-370 76% 100 ML VIAL As Ordered ONE (11:36)
[2025-02-06] MEDS: SUCRALFATE 1 GM TAB PO ONE (11:42)
[2025-02-06] MEDS: NS (Normal Saline) 0.9% 1,000 ML IV ONE (11:42)
[2025-02-06] MEDS: PANTOPRAZOLE 40MG VIAL IV ONE (11:42)
[2025-02-06] MEDS: ONDANSETRON 4MG/2ML VIAL IV ONE (11:42)
[2025-02-06 11:56] LABS: CK-MB VALUE MASS 1.3 NG/ML (<3.6)
[2025-02-06 12:05] LABS: CPK CREATINE PHOSPHOKINASE 117 U/L (34-145); MB/CK RELATIVE INDEX 1.11 (< OR =4)
[2025-02-06 12:43] LABS: CK-MB VALUE MASS 1.1 NG/ML (<3.6)
[2025-02-06 12:45] LABS: CPK CREATINE PHOSPHOKINASE 93.0 U/L (34-145); MB/CK RELATIVE INDEX 1.18 (< OR =4)
[2025-02-06] MEDS ORDERED: ONDA-282 PO (13:08)
[2025-02-06] MEDS ORDERED: PROT1TAB2 PO (13:08)
[2025-02-06] MEDS ORDERED: CARA1TAB6 PO (13:08)
[2025-02-06 13:30] VITALS: BP 115/60; O2SAT 98
== END 2025-02-06 13:39 | disposition home or self-care (01) ==
LOC: EDBD 08:46 → M ED 08:46
DX: E11.65 Type 2 diabetes mellitus with hyperglycemia (principal); R10.13 Epigastric pain; R11.2 Nausea with vomiting, unspecified; I10 Essential (primary) hypertension; K21.9 Gastro-esophageal reflux disease without esophagitis; F41.9 Anxiety disorder, unspecified; F43.10 Post-traumatic stress disorder, unspecified; F17.210 Nicotine dependence, cigarettes, uncomplicated; F12.10 Cannabis abuse, uncomplicated; Z88.6 Allergy status to analgesic agent; Z79.1 Long term (current) use of non-steroidal anti-inflammatories (NSAID); Z79.2 Long term (current) use of antibiotics; Z79.84 Long term (current) use of oral hypoglycemic drugs; Z79.899 Other long term (current) drug therapy
CPT/HCPCS: 71045; 74177; 80047; 80076; 82550; 82553; 83690; 84484; 85025; 93005; 93041; 96361; 96374; 99285; J2405; J2470; Q9967

== ENCOUNTER 2025-02-09 10:37 | Emergency (ER) | payer OTHER ==
[~2025-02-09] VITALS: Ht 160 cm; Wt 78.4 kg
[~2025-02-09 10:37] MED LIST changes: +CARA1TAB6 PO
[2025-02-09 10:42] VITALS: BP 124/76; TEMP 97.7; O2SAT 99
== END 2025-02-09 11:04 | disposition left against medical advice (07) ==
LOC: M ED 10:37
DX: Z53.21 Procedure and treatment not carried out due to patient leaving prior to being seen by health care provider (principal)